=== PATIENT | female | born 1930 | race Caucasian/White ===

== ENCOUNTER 2017-10-31 11:34 | Day surgery (SDC) | payer MEDICARE, OTHER ==
[2017-10-31] MEDS ORDERED: Sodium Chloride 0.9% 10 ML Syringe IV ONE (11:35)
[2017-10-31] MEDS ORDERED: Dexamethasone 4 MG/ML SDV IV ONE (11:35)
[2017-10-31] MEDS ORDERED: Midazolam 1 MG/ML 2 ML SDV IV ONE (11:35)
[2017-10-31 11:53] VITALS: BP 135/58
[2017-10-31] MEDS ORDERED: Sodium Chloride 0.9% 10 ML Syringe FLUSH PRN (12:00)
[2017-10-31] MEDS ORDERED: Proparacaine 0.5% Ophth Soln 15 ML Bottle EYERT ONE (12:00)
[2017-10-31] MEDS ORDERED: Timolol Maleate 0.5% Ophth Soln 5 ML Bottle EYERT ONE (12:00)
[2017-10-31] MEDS ORDERED: Povidone-Iodine 5% Sterile Ophth Soln 30 ML Bottle EYERT ONE (12:00)
[2017-10-31] MEDS ORDERED: Acetaminophen 325 MG Tab PO PRN (12:00)
[2017-10-31] MEDS ORDERED: Phenylephrine 10% Ophth Soln 5 ML Bot EYERT ONE (12:00)
[2017-10-31] MEDS ORDERED: Phenylephrine 10% Ophth Soln 5 ML Bot EYERT PRN (12:00)
[2017-10-31] MEDS ORDERED: Cataract Ophth Solution EYERT ONE (12:00)
[2017-10-31] MEDS ORDERED: Moxifloxacin 0.5% Ophth Soln 3 ML Bottle EYERT ONE (12:00)
[2017-10-31] MEDS ORDERED: Ondansetron 4 MG/2 ML SDV IVPUSH PRN (12:00)
[2017-10-31] MEDS ORDERED: Tetracaine HCl/PF 0.5% 4 ML Bottle EYERT ONE (12:36)
[2017-10-31] MEDS ORDERED: Dexamethasone/Neomycin/Polymyxin B Ophth Oint 3.5 GM Tube EYERT ONE (12:37)
[2017-10-31] MEDS ORDERED: Lidocaine 1% 30 ML SDV ONE (12:37)
[2017-10-31] MEDS ORDERED: Apraclonidine 0.5% Ophth Soln 5 ML Bot EYERT ONE (12:37)
[2017-10-31] MEDS ORDERED: Chondroitin Sulfate/Hyaluronate Sodium Ophth Inj 0.5 ML Syringe IOCULAR ONE (12:38)
[2017-10-31] MEDS ORDERED: Vancomycin 500 MG SDV EYERT ONE (12:38)
[2017-10-31] MEDS ORDERED: Balanced Salt Solution Ophth Irrig 500 ML Bottle IOCULAR ONE (12:38)
[2017-10-31] MEDS ORDERED: Diclofenac Sodium 0.1% Ophth Soln 5 ML Bottle EYERT ONE (12:38)
--- NOTE | 2017-11-01 07:29 | OR ---
DATE: 10/31/2017 PREOPERATIVE DIAGNOSIS: Visually significant mixed cataract, right eye. POSTOPERATIVE DIAGNOSIS: Visually significnat mixed cataract, right eye. PROCEDURE: Extracapsular cataract extraction with intraocular lens implant, right eye. ANESTHESIA: Topical/local MAC. COMPLICATIONS: None. INDICATION: Mrs. Ruiz was seen in the clinic. She has difficulty with bright lights, difficulty with glare. She is unhappy with her vision. Clinical examination reveals visually significant mixed nuclear and cortical cataract. I explained options. I offered cataract surgery and I explained risks including the potential for vision loss. She is symptomatic and requested surgery to improve vision and function. We discussed implant options and she requested a monofocal implant. OPERATIVE DESCRIPTION: After informed consent was obtained and the risks, benefits, and alternatives were explained, the patient was brought to the operative suite and topical anesthesia was administered. The patient was then prepped and draped in the sterile fashion and attention was placed on the right eye. A sterile lid speculum was placed into the right eye to allow operative exposure. A full-thickness paracentesis was made in the temporal portion of the operative eye. Preservative-free lidocaine 0.1 mL was injected into the anterior chamber followed by viscoelastic. A full-thickness corneal incision was then made into the anterior chamber. A bent needle cystotome was used to create a small hari in the anterior capsule. The capsulorrhexis forceps were then used to create a 360-degree curvilinear capsulorrhexis. The nucleus was then removed using a phacoemulsification handpiece and the remaining cortical material was then removed with irrigation and aspiration handpiece. Following removal of the cortical material, the capsular bag was then inspected and noted to be free of any holes or tears. Viscoelastic was then injected into the capsular bag and the intraocular lens was inserted into the capsular bag. The viscoelastic material was then removed from both the anterior and posterior chambers and from behind the IOL. The lens and capsular bag were then reinspected. The IOL was well centered and the capsular bag intact. The wound and paracentesis sites were inspected and hydrated with balanced saline solution. Both were found to be self- sealing. The intraocular pressure was assessed digitally and found to be within normal range. A good red reflex was noted at the completion of the procedure. No complications occurred during the operation. At the completion of the procedure, Maxitrol, Voltaren, and Iopidine drops were placed into the operative eye. A sterile eye shield was placed over the operative eye and the patient was transported to the postoperative recovery area having tolerated the procedure well. Postoperative instructions were given along with a postoperative appointment. The patient was advised to call with any questions or concerns. [facility] /[id number]
== END 2017-10-31 14:10 | disposition home or self-care (01) ==
LOC: DL.SDS 11:34
PROVIDERS: ATTEND Ophthalmology
DX: H26.9 Unspecified cataract (principal); E78.5 Hyperlipidemia, unspecified; I10 Essential (primary) hypertension; M81.0 Age-related osteoporosis without current pathological fracture; I48.0 Paroxysmal atrial fibrillation; K44.9 Diaphragmatic hernia without obstruction or gangrene; K57.90 Diverticulosis of intestine, part unspecified, without perforation or abscess without bleeding; Z79.899 Other long term (current) drug therapy; Z79.82 Long term (current) use of aspirin
CPT/HCPCS: 00142; 66984; A9270; C1780; J1100; J2250; J3370; J7050

== ENCOUNTER 2017-12-01 15:06 | Emergency (ER) | payer MEDICARE, OTHER ==
[2017-12-01] MEDS: Amoxicillin/Clavulanate K 875-125 MG Tab PO ONE (18:38)
[2017-12-01] MEDS: Meclizine 12.5 MG Tab PO ONE (18:38)
[2017-12-01] MEDS: cloNIDine 0.1 MG Tab PO ONE (18:54)
[2017-12-01 19:37] VITALS: BP 170/43
--- NOTE | 2017-12-02 19:13 | EDM.PDOC ---
Scribed by America Murillo 12/01/17 [id number] for Radha Echols NP <Radha Echols - Last Filed: 12/01/17 18:48> ED HPI GENERAL MEDICAL PROBLEM - General Chief Complaint: General Stated Complaint: diziness Time Seen by Provider: 12/01/17 16:22 Source of Information: Reports: Patient, Family, RN, RN Notes Reviewed History Limitations: Reports: No Limitations - History of Present Illness INITIAL COMMENTS - FREE TEXT/NARRATIVE: Patient presents with being dizzy and weak since Sunday. Patient was to the clinic yesterday. She was started on a new med--Amlodipine.She has dizziness progressively getting worse. She had a headache yesterday. Her vision is blurry. She has had chills and urgency. She has had no fever, chest pain, shortness of breath, nausea, vomiting, diarrhea, constipation or burning with urination. Duration: Getting Worse Severity: Mild Improves with: Reports: None Worsens with: Reports: None Associated Symptoms: Reports: No Other Symptoms - Related Data Allergies Allergy/AdvReac Type Severity Reaction Status Date / Time No Known Allergies Allergy Verified 10/31/17 12:08 Home Meds: Home Meds Aspirin 81 mg PO DAILY 02/23/16 [History] amLODIPine Besylate [Amlodipine Besylate] 5 mg PO DAILY 10/26/17 [History] Past Medical History HEENT History: Reports: Cataract, Impaired Vision, Other (See Below) Other HEENT History: floaters Cardiovascular History: Reports: Afib, High Cholesterol, Hypertension Respiratory History: Reports: None Gastrointestinal History: Reports: Diverticulosis, Hiatal Hernia Genitourinary History: Reports: Urinary Incontinence, Other (See Below) Other Genitourinary History: 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 -- 75 MM (2 15/16IN) 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: Other (See Below) Other OB/BYN History: PELVIC RELAXATION DISORDER - WEARS PESSARY Musculoskeletal History: Reports: Osteoporosis Neurological History: Reports: None Psychiatric History: Reports: None Endocrine/Metabolic History: Reports: None Hematologic History: Reports: None Immunologic History: Reports: None Dermatologic History: Reports: None - Infectious Disease History Infectious Disease History: Reports: Hepatitis A - Past Surgical History Head Surgeries/Procedures: Reports: None HEENT Surgical History: Reports: Cataract Surgery Cardiovascular Surgical History: Reports: None Respiratory Surgical History: Reports: None GI Surgical History: Reports: Appendectomy Neurological Surgical History: Reports: None Musculoskeletal Surgical History: Reports: Other (See Below) Other Musculoskeletal Surgeries/Procedures:: left arm Fx Social & Family History - Family History Neurological: Reports: Alzheimers Disease - Tobacco Use Smoking Status *Q: Never Smoker Second Hand Smoke Exposure: No - Caffeine Use Caffeine Use: Reports: Coffee, Soda, Tea - Recreational Drug Use Recreational Drug Use: No ED ROS GENERAL - Review of Systems Review Of Systems: ROS reveals no pertinent complaints other than HPI. ED EXAM, GENERAL - Physical Exam Exam: See Below Exam Limited By: No Limitations General Appearance: Alert, WD/WN, No Apparent Distress Eye Exam: Bilateral Eye: Normal Inspection Ears: Normal External Exam, Normal Canal, Hearing Grossly Normal, Normal TMs Nose: Normal Inspection, Normal Mucosa, No Blood Throat/Mouth: Normal Inspection, Normal Lips, Normal Teeth, Normal Gums, Normal Oropharynx, Normal Voice, No Airway Compromise Head: Atraumatic, Normocephalic Neck: Normal Inspection, Supple, Non-Tender, Full Range of Motion Respiratory/Chest: No Respiratory Distress, Lungs Clear, Normal Breath Sounds, No Accessory Muscle Use, Chest Non-Tender Cardiovascular: Normal Peripheral Pulses, Regular Rate, Rhythm, No Edema, No Gallop, No JVD, No Murmur, No Rub GI/Abdominal: Normal Bowel Sounds, Soft, Non-Tender, No Organomegaly, No Distention, No Abnormal Bruit, No Mass (Female) Exam: Deferred Rectal (Female) Exam: Deferred Back Exam: Normal Inspection, Full Range of Motion, NT Extremities: Normal Inspection, Normal Range of Motion, Non-Tender, Normal Capillary Refill, No Pedal Edema Neurological: Other (dizzy with turning head and sitting up. ) Psychiatric: Normal Affect, Normal Mood Skin Exam: Warm, Dry, Intact, Normal Color, No Rash Lymphatic: No Adenopathy EKG INTERPRETATION EKG Date: 12/01/17 Time: 16:09 Rhythm: Other (sinus rhythm) Rate (Beats/Min): 76 [place]: Normal P-Wave: Present QRS: Normal ST-T: Normal QT: Normal EKG Interpretation Comments: LVH by voltage. Course - Vital Signs Last Recorded V/S: Last Vital Signs Temp 37.0 C 12/01/17 18:56 Pulse 66 12/01/17 19:37 Resp 16 12/01/17 18:56 BP 170/43 H 12/01/17 19:37 Pulse Ox 97 12/01/17 19:37 - Orders/Labs/Meds Orders: Active Orders 24 hr Category Date Time Status EKG Documentation Completion [RC] STAT Care 12/01/17 15:57 Active CULTURE BLOOD [BC] Stat Lab 12/01/17 16:16 Received CULTURE BLOOD [BC] Stat Lab 12/01/17 16:22 Received Blood Culture x2 Reflex Set [OM.PC] Stat Oth 12/01/17 15:57 Ordered Labs: Laboratory Tests 12/01/17 12/01/17 12/01/17 Range/Units 16:16 16:16 16:16 WBC 6.1 (5.0-10.0) 10^3/uL RBC 4.40 (4.2-5.4) 10^6/uL Hgb 13.5 (12.0-16.0) g/dL Hct 41.3 (37.0-47.0) % MCV 93.9 (80-100) fL MCH 30.7 (27.0-34.0) pg MCHC 32.7 L (33.0-35.0) g/dL Plt Count 195 (150-450) 10^3/uL Neut % (Auto) 46.3 (42.2-75.2) % Lymph % (Auto) 40.3 (20.5-50.1) % [place] % (Auto) 9.9 H (2-8) % Eos % (Auto) 3.0 (1.0-3.0) % Baso % (Auto) 0.5 (0.0-1.0) % Sodium 137 (135-145) mmol/L Potassium 4.0 (3.6-5.0) mmol/L Chloride 103 (101-111) mmol/L Carbon Dioxide 26.0 (21.0-31.0) mmol/L Anion Gap 12.0 BUN 17 (7-18) mg/dL Creatinine 0.9 (0.6-1.3) mg/dL Est Cr Clr Drug Dosing 35.49 mL/min Estimated GFR (MDRD) 59 BUN/Creatinine Ratio 18.88 Glucose 209 H (74-105) mg/dL Lactic Acid 1.7 (0.5-2.2) mmol/L Calcium 9.4 (8.4-10.2) mg/dl Total Bilirubin 0.6 (0.2-1.0) mg/dL AST 26 (10-42) IU/L ALT 16 (10-60) IU/L Alkaline Phosphatase 68 (42-121) IU/L Troponin I (0.00-0.02) ng/ml Total Protein 6.7 (6.7-8.2) g/dl Albumin 3.8 (3.2-5.5) g/dl Globulin 2.9 Albumin/Globulin Ratio 1.31 Urine Color (YELLOW) Urine Appearance (CLEAR) Urine pH (5.0-9.0) Ur Specific [place] (1.005-1.030) Urine Protein (NEGATIVE) Urine Glucose (UA) (NEGATIVE) Urine Ketones (NEGATIVE) Urine Occult Blood (NEGATIVE) Urine Nitrite (NEGATIVE) Urine Bilirubin (NEGATIVE) Urine Urobilinogen (0.2-1.0) mg/dL Ur Leukocyte Esterase (NEGATIVE) Urine RBC /HPF Urine WBC (0-5/HPF) /HPF Ur Epithelial Cells /HPF Urine Bacteria (0-FEW/HPF) /HPF 12/01/17 12/01/17 Range/Units 17:03 18:55 WBC (5.0-10.0) 10^3/uL RBC (4.2-5.4) 10^6/uL Hgb (12.0-16.0) g/dL Hct (37.0-47.0) % MCV (80-100) fL MCH (27.0-34.0) pg MCHC (33.0-35.0) g/dL Plt Count (150-450) 10^3/uL Neut % (Auto) (42.2-75.2) % Lymph % (Auto) (20.5-50.1) % [place] % (Auto) (2-8) % Eos % (Auto) (1.0-3.0) % Baso % (Auto) (0.0-1.0) % Sodium (135-145) mmol/L Potassium (3.6-5.0) mmol/L Chloride (101-111) mmol/L Carbon Dioxide (21.0-31.0) mmol/L Anion Gap BUN (7-18) mg/dL Creatinine (0.6-1.3) mg/dL Est Cr Clr Drug Dosing mL/min Estimated GFR (MDRD) BUN/Creatinine Ratio Glucose (74-105) mg/dL Lactic Acid (0.5-2.2) mmol/L Calcium (8.4-10.2) mg/dl Total Bilirubin (0.2-1.0) mg/dL AST (10-42) IU/L ALT (10-60) IU/L Alkaline Phosphatase (42-121) IU/L Troponin I < 0.02 (0.00-0.02) ng/ml Total Protein (6.7-8.2) g/dl Albumin (3.2-5.5) g/dl Globulin Albumin/Globulin Ratio Urine Color Yellow (YELLOW) Urine Appearance Slightly cloudy (CLEAR) Urine pH 6.0 (5.0-9.0) Ur Specific [place] 1.020 (1.005-1.030) Urine Protein 30 H (NEGATIVE) Urine Glucose (UA) Negative (NEGATIVE) Urine Ketones Trace H (NEGATIVE) Urine Occult Blood Trace-intact H (NEGATIVE) Urine Nitrite Negative (NEGATIVE) Urine Bilirubin Negative (NEGATIVE) Urine Urobilinogen 1.0 (0.2-1.0) mg/dL Ur Leukocyte Esterase Large H (NEGATIVE) Urine RBC 0-5 /HPF Urine WBC 40-50 H (0-5/HPF) /HPF Ur Epithelial Cells Moderate H /HPF Urine Bacteria Few (0-FEW/HPF) /HPF Meds: Medications Discontinued Medications Generic Name Dose Route Start Last Admin Trade Name Freq PRN Reason Stop Dose Admin Amoxicillin/Clavulanate Potassium 1 tab 12/01/17 18:35 12/01/17 18:38 Augmentin 875 Mg/125 Mg PO 12/01/17 18:36 1 tab ONETIME ONE Administration Clonidine HCl 0.1 mg 12/01/17 18:49 12/01/17 18:54 Catapres PO 12/01/17 18:50 0.1 mg ONETIME ONE Administration Meclizine HCl 12.5 mg 12/01/17 18:33 12/01/17 18:38 Antivert PO 12/01/17 18:34 12.5 mg ONETIME ONE Administration - Radiology Interpretation Free Text/Narrative:: CT head: 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 Mild cerebral and cerebellar atrophy. Cerebellar atrophy is more prominent than the cerebral atrophy. No sign of acute intracranial abnormality. See rad report. Departure - Departure Time of Disposition: 18:29 Disposition: Home, Self-Care 01 Condition: Fair Clinical Impression: UTI, Urinary tract infectious disease, Dizziness, Sinusitis - Discharge Information Instructions: Sinusitis, Adult, [id number], Urinary Tract Infection, Adult, [id number], Dizziness, [id number] Referrals: PCP,None [Primary Care Provider] - Forms: ED Department Discharge Additional Instructions: RX: Augmentin, Meclizine Drink plenty of fluids Follow up with your primary care facility next week <Bear Lennon - Last Filed: 12/01/17 19:46> Course - Re-Assessments/Exams Free Text/Narrative Re-Assessment/Exam: 12/01/17 19:44 results discussed with family & pt. BP much better and dizziness improved. Departure - Departure Time of Disposition: 19:45 I have read and agree with the documentation that has been completed regarding this visit. By signing this record, I attest that the documentation was completed in my physical presence and is an accurate record of the encounter.
--- NOTE | 2017-12-03 17:28 | EKG ---
12/01/2017 - MARTIN LEE - TIME: 1609 hours. FINDINGS: EKG shows sinus rhythm. [facility] /[id number]
== END 2017-12-01 19:51 | disposition home or self-care (01) ==
LOC: DL.ED 15:06
DX: N39.0 Urinary tract infection, site not specified (principal); R42 Dizziness and giddiness; J32.9 Chronic sinusitis, unspecified; I48.91 Unspecified atrial fibrillation; E78.00 Pure hypercholesterolemia, unspecified; I10 Essential (primary) hypertension; Z79.82 Long term (current) use of aspirin; Z79.899 Other long term (current) drug therapy
CPT/HCPCS: 36415; 70450; 80053; 81001; 83605; 84484; 85025; 87040; 87804; 93005; 93010; 99284; A9270; 87077; 87186; 99283

== ENCOUNTER 2017-12-02 04:50 | Inpatient (IN) | payer MEDICARE, OTHER ==
--- NOTE | 2017-12-02 05:20 | EDM.PDOC ---
ED HPI GENERAL MEDICAL PROBLEM - General Chief Complaint: Neuro Symptoms/Deficits Stated Complaint: AMBULANCE Time Seen by Provider: 12/02/17 05:15 Source of Information: Reports: Patient, Family History Limitations: Reports: No Limitations - History of Present Illness INITIAL COMMENTS - FREE TEXT/NARRATIVE: was seen earlier for dizziness & weakness since Sunday with Dx UTI & sinusitis. been to clinic and had BP Rx changed. tonight daughter states pt unable to stand and had to call EMS. pt alert coherent minimal slur speech. obvious left facial droop & left leg weakness. CAT earlier show cerebella atrophy. 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 - Related Data Allergies Allergy/AdvReac Type Severity Reaction Status Date / Time No Known Allergies Allergy Verified 12/02/17 05:03 Home Meds: Home Meds Aspirin 81 mg PO DAILY 02/23/16 [History] amLODIPine Besylate [Amlodipine Besylate] 5 mg PO DAILY 10/26/17 [History] Past Medical History HEENT History: Reports: Cataract, Impaired Vision, Other (See Below) Other HEENT History: floaters Cardiovascular History: Reports: Afib, High Cholesterol, Hypertension Respiratory History: Reports: None Gastrointestinal History: Reports: Diverticulosis, Hiatal Hernia Genitourinary History: Reports: Urinary Incontinence, Other (See Below) Other Genitourinary History: 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 -- 75 MM (2 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) 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: Reports: Other (See Below) Other OB/BYN History: PELVIC RELAXATION DISORDER - WEARS PESSARY Musculoskeletal History: Reports: Osteoporosis Neurological History: Reports: None Psychiatric History: Reports: None Endocrine/Metabolic History: Reports: None Hematologic History: Reports: None Immunologic History: Reports: None Dermatologic History: Reports: None - Infectious Disease History Infectious Disease History: Reports: Hepatitis A - Past Surgical History Head Surgeries/Procedures: Reports: None HEENT Surgical History: Reports: Cataract Surgery Cardiovascular Surgical History: Reports: None Respiratory Surgical History: Reports: None GI Surgical History: Reports: Appendectomy Neurological Surgical History: Reports: None Musculoskeletal Surgical History: Reports: Other (See Below) Other Musculoskeletal Surgeries/Procedures:: left arm Fx Social & Family History - Family History Neurological: Reports: Alzheimers Disease - Tobacco Use Smoking Status *Q: Never Smoker Second Hand Smoke Exposure: No - Recreational Drug Use Recreational Drug Use: No ED ROS GENERAL - Review of Systems Review Of Systems: ROS reveals no pertinent complaints other than HPI. ED EXAM, NEURO - Physical Exam Exam: See Below Exam Limited By: No Limitations General Appearance: Alert, WD/WN, No Apparent Distress Eye Exam: Bilateral Eye: PERRL (pupils ess ER @ 3mm) Ears: Hearing Grossly Normal Throat/Mouth: Normal Voice, No Airway Compromise Head Exam: Atraumatic Neck: Non-Tender, Full Range of Motion Respiratory/Chest: No Respiratory Distress Cardiovascular: Regular Rate, Rhythm GI/Abdominal: Soft, Non-Tender Neurological: Alert, Oriented x 3, Other (left leg unable to raise) Extremities: Other (left leg unable to raise) Psychiatric: Flat Affect Skin Exam: Warm, Dry, Normal Color Course - Vital Signs Last Recorded V/S: Last Vital Signs Temp 36.5 C 12/02/17 06:46 Pulse 53 L 12/02/17 06:46 Resp 13 12/02/17 06:46 BP 122/37 L 12/02/17 06:46 Pulse Ox 95 12/02/17 06:46 - Orders/Labs/Meds Orders: Active Orders 24 hr Category Date Time Status Head wo Cont [CT] Urgent Exams 12/02/17 05:07 Taken Labs: Laboratory Tests 12/02/17 12/02/17 12/02/17 Range/Units 05:30 05:30 05:30 WBC 6.8 (5.0-10.0) 10^3/uL RBC 4.34 (4.2-5.4) 10^6/uL Hgb 13.3 (12.0-16.0) g/dL Hct 40.8 (37.0-47.0) % MCV 94.0 (80-100) fL MCH 30.6 (27.0-34.0) pg MCHC 32.6 L (33.0-35.0) g/dL Plt Count 179 (150-450) 10^3/uL Neut % (Auto) 46.5 (42.2-75.2) % Lymph % (Auto) 38.7 (20.5-50.1) % [place] % (Auto) 10.6 H (2-8) % Eos % (Auto) 3.8 H (1.0-3.0) % Baso % (Auto) 0.4 (0.0-1.0) % PT 9.5 (9.0-12.0) SEC INR 0.9 (0.9-1.2) APTT 26.7 (22.0-34.0) SEC Sodium 137 (135-145) mmol/L Potassium 4.0 (3.6-5.0) mmol/L Chloride 103 (101-111) mmol/L Carbon Dioxide 26.0 (21.0-31.0) mmol/L Anion Gap 12.0 BUN 17 (7-18) mg/dL Creatinine 0.8 (0.6-1.3) mg/dL Est Cr Clr Drug Dosing 39.92 mL/min Estimated GFR (MDRD) > 60 BUN/Creatinine Ratio 21.25 Glucose 109 H (74-105) mg/dL Calcium 9.2 (8.4-10.2) mg/dl Total Bilirubin 0.7 (0.2-1.0) mg/dL AST 22 (10-42) IU/L ALT 15 (10-60) IU/L Alkaline Phosphatase 62 (42-121) IU/L Total Protein 6.5 L (6.7-8.2) g/dl Albumin 3.7 (3.2-5.5) g/dl Globulin 2.8 Albumin/Globulin Ratio 1.32 - Re-Assessments/Exams Free Text/Narrative Re-Assessment/Exam: 12/02/17 06:[address] Myers who will come to re-eval the pt and discussed with the family. finally decided to have pt admitted here. Departure - Departure Time of Disposition: 06:49 Disposition: Admitted As Inpatient 67 Condition: Fair Clinical Impression: Cerebrovascular accident (CVA) Qualifiers: CVA mechanism: unspecified Qualified Code(s): I63.9 - Cerebral infarction, unspecified - Discharge Information Forms: ED Department Discharge - My Orders Last 24 Hours: My Active Orders 12/02/17 05:07 Head wo Cont [CT] Urgent - Assessment/Plan Last 24 Hours: My Active Orders 12/02/17 05:07 Head wo Cont [CT] Urgent
[2017-12-02 05:58] LABS: CHLORIDE,CL 103 mmol/L (101-111); SODIUM,NA 137 mmol/L (135-145)
[2017-12-02] MEDS ORDERED: Ondansetron 4 MG/2 ML SDV IVPUSH PRN (07:30)
[2017-12-02] MEDS: Sodium Chloride 0.9% 1,000 ML IV SCH ×2 (08:35→21:59)
[2017-12-02] MEDS: Enoxaparin 40 MG/0.4 ML Syringe SUBCUT SCH (08:43)
[2017-12-02] MEDS ORDERED: Clopidogrel 75 MG Tab PO SCH (09:00)
[2017-12-02] MEDS ORDERED: cefTRIAXone 1 GM in Sodium Chloride 0.9% 50 ML IV SCH (09:00)
--- NOTE | 2017-12-02 09:06 | PCM.HP ---
H&P History of Present Illness - General Date of Service: 12/02/17 Admit Problem/Dx: Admission Diagnosis/Problem Admission Diagnosis/Problem CVA, Cerebrovascular accident Source of Information: Family History Limitations: Reports: Altered Mental Status - History of Present Illness Initial Comments - Free Text/Narative: the patient was brought to the emergency room by family because of drowsiness and weakness of the left extremities. Apparently symptoms started about 2 PM yesterday and the patient was seen in the emergency room. She complained of difficulty lifting her left extremities. At also has some speech difficulty. The patient was evaluated emergency room and sent home. Came back this morning because of persistent weakness and drowsiness. CT scan of the head was negative. Patient has obvious left hemiparesis and likely has cerebrovascular accident Onset of Symptoms: Reports: Unknown/Unsure Symptom Onset Date: 12/01/17 Location: Reports: Lower Extremity, Left Severity: Moderate Associated Symptoms: Reports: Weakness - Related Data Allergies/Adverse Reactions: Allergies Allergy/AdvReac Type Severity Reaction Status Date / Time No Known Allergies Allergy Verified 12/02/17 07:43 Home Medications: Home Meds Aspirin 81 mg PO DAILY 02/23/16 [History] amLODIPine Besylate [Amlodipine Besylate] 5 mg PO DAILY 10/26/17 [History] Past Medical History HEENT History: Reports: Cataract, Impaired Vision, Other (See Below) Other HEENT History: floaters Cardiovascular History: Reports: Afib, High Cholesterol, Hypertension Respiratory History: Reports: None Gastrointestinal History: Reports: Diverticulosis, Hiatal Hernia Genitourinary History: Reports: Urinary Incontinence, Other (See Below) Other Genitourinary History: 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 -- 75 MM (2 15/16IN) 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: Reports: Other (See Below) Other OB/BYN History: PELVIC RELAXATION DISORDER - WEARS PESSARY Musculoskeletal History: Reports: Osteoporosis Neurological History: Reports: None Psychiatric History: Reports: None Endocrine/Metabolic History: Reports: None Hematologic History: Reports: None Immunologic History: Reports: None Oncologic (Cancer) History: Reports: None Dermatologic History: Reports: None - Infectious Disease History Infectious Disease History: Reports: Mumps - Past Surgical History Head Surgeries/Procedures: Reports: None HEENT Surgical History: Reports: Cataract Surgery Cardiovascular Surgical History: Reports: None Respiratory Surgical History: Reports: None GI Surgical History: Reports: Appendectomy Other Female Surgeries/Procedures: Family states that she does not wear bladder protection at home Neurological Surgical History: Reports: None Musculoskeletal Surgical History: Reports: Other (See Below) Other Musculoskeletal Surgeries/Procedures:: left arm Fx Social & Family History - Family History Family Medical History: Noncontributory Neurological: Reports: Alzheimers Disease - Tobacco Use Smoking Status *Q: Former Smoker Years of Tobacco use: 40 Packs/Tins Daily: 0.5 Used Tobacco, but Quit: Yes Month/Year Tobacco Last Used: February Second Hand Smoke Exposure: No - Caffeine Use Caffeine Use: Reports: Coffee, Soda, Tea - Recreational Drug Use Recreational Drug Use: No H&P Review of Systems - Review of Systems: Review Of Systems: Unable To Obtain Exam - Exam Exam: See Below - Vital Signs Vital Signs: Last Vital Signs Temp 36.5 C 12/02/17 06:46 Pulse 53 L 12/02/17 06:46 Resp 13 12/02/17 06:46 BP 122/37 L 12/02/17 06:46 Pulse Ox 100 12/02/17 07:30 Weight: 61.87 kg - Exam General: Sedated, Lethargic HEENT: Conjunctiva Clear, Pupils Reactive Neck: Supple Lungs: Clear to Auscultation Cardiovascular: Regular Rate, Regular Rhythm GI/Abdominal Exam: Soft, Non-Tender Neurological: Other (Left hemiparesis ) - Patient Data Result Diagrams: 12/02/17 05:30 12/02/17 05:30 *Q Meaningful Use (ADM) - VTE *Q VTE Criteria *Q: - Stroke *Q Stroke Criteria *Q: - AMI *Q AMI Criteria *Q: Problem List Initiated/Reviewed/Updated: Yes Orders Last 24hrs: Active Orders 24 hr Category Date Time Status Patient Status [ADT] Routine ADT 12/02/17 07:30 Active Cardiac Monitoring [RC] CONTINUOUS Care 12/02/17 07:33 Active Oxygen Therapy [RC] PRN Care 12/02/17 07:30 Active Up With Assistance [RC] ASDIRECTED Care 12/02/17 07:30 Active VTE/DVT Education [RC] PER UNIT ROUTINE Care 12/02/17 07:30 Active Vital Signs [RC] Q4H Care 12/02/17 07:30 Active Consult to Phone Triage Specialist [CONS] Routine Cons 12/02/17 07:30 Active OT Evaluation and Treatment [CONS] Routine Cons 12/02/17 07:30 Active PT Evaluation and Treatment [CONS] Routine Cons 12/02/17 07:30 Active FORGING PRESS LEVER 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 Evaluation and Treatment [CONS] Routine Cons 12/02/17 07:30 Active Nothing per Oral Now Diet [DIET] Diet 12/02/17 Breakfast Active Brain w wo Cont [MR] Routine Exams 12/03/17 07:30 Ordered Carotid Comp [US] Routine Exams 12/03/17 07:30 Ordered Clopidogrel [Plavix] Med 12/02/17 09:00 Active 75 mg PO DAILY Enoxaparin [Lovenox] Med 12/02/17 09:00 Active 40 mg SUBCUT DAILY Ondansetron [Zofran] Med 12/02/17 07:30 Active 4 mg IVPUSH Q6H PRN Sodium Chloride 0.9% [Normal Saline] 1,000 ml Med 12/02/17 07:30 Active IV ASDIRECTED Resuscitation Status Routine Resus Stat 12/02/17 07:30 Ordered Medication Orders Clopidogrel Bisulfate (Plavix) 75 mg PO DAILY [facility] Enoxaparin Sodium (Lovenox) 40 mg SUBCUT DAILY [facility] Last Admin: 12/02/17 08:43 Dose: 40 mg Sodium Chloride (Normal Saline) 1,000 mls @ 75 mls/hr IV ASDIRECTED [facility] Last Admin: 12/02/17 08:35 Dose: 75 mls/hr Ondansetron HCl (Zofran) 4 mg IVPUSH Q6H PRN PRN Reason: Nausea/Vomiting Assessment/Plan Comment:: #. Probable cerebrovascular accident The patient presented with left hemiparesis and drowsiness Exact time of onset is not obvious but might have been about 2 PM yesterday. The patient is obviously outside the window for intravenous thrombolytics. #. Hypertension The patient does a history of chronic hypertension Blood pressure is mostly within acceptable limits. #. Acute encephalopathy patient is drowsy Likely due to acute cerebrovascular accident. CT scan of the head is negative. Plan: Admit patient to medical floor Obtain MRI of the brain Obtain ultrasound carotids Neuro check consult physical therapy Consult occupational therapy consult speech therapy Performed speech evaluation start patient on Plavix 7 family grams daily Start aspirin suppository 300 mg daily Patient will benefit from statins Discussed at length with family members. They're indicated the patient is DNR
[2017-12-02] MEDS: cefTRIAXone 1 GM Vial IV SCH (10:09)
[2017-12-02] MEDS: Aspirin 300 MG Supp RECTAL SCH (10:14)
[2017-12-02] MEDS ORDERED: Acetaminophen 325 MG Tab PO PRN (21:38)
--- NOTE | 2017-12-03 08:48 | MR ---
Clinical history: 87-year-old hospitalized patient with left-sided weakness (hypertension, dyslipidem ia, paroxysmal atrial fibrillation). Scan technique: Unenhanced sagittal T1 and multisequence axial and (T1, T2, FLAIR and diffusion-weigh anthony) MR images of the head and brain obtained while the patient was lying supine on the Jin 1.[employer] [place], [place]. All data archived in the PACS s [facility] for storage, reformatting and study. Interpretation: Abnormal. 1 *Asymmetric large area of ischemia (infarct) involving thalamus, on the right. 2. No sign of acute intracerebral/intraventricular or subarachnoid bleed. 3. Multiple microvascular ischemic changes identified throughout the periventricular white matter bot h hemispheres (accompanying mild age-appropriate atrophy). 4. No abnormal extracerebral/intracranial epidural or subdural hematoma. 5. Mild inflammatory changes of the ethmoid sinuses. Mastoid and other paranasal sinuses clear. Infla med right nasal turbinate. 6. Cerebellum and brainstem unremarkable.
--- NOTE | 2017-12-03 10:03 | PCM.PN ---
- General Info Date of Service: 12/03/17 Admission Dx/Problem (Free Text): Admission Diagnosis/Problem Admission Diagnosis/Problem CVA, Cerebrovascular accident Subjective Update: Patient has no new complaints today Still has weakness of the left extremities. Still has some difficulty with speech. Has left facial droop - Review of Systems General: Reports: Weakness, Malaise Cardiovascular: Reports: No Symptoms Gastrointestinal: Reports: No Symptoms Musculoskeletal: Reports: No Symptoms - Patient Data Vitals - Most Recent: Last Vital Signs Temp 36.7 C 12/03/17 07:42 Pulse 95 12/03/17 07:42 Resp 20 12/03/17 07:42 BP 150/60 H 12/03/17 07:42 Pulse Ox 96 12/03/17 07:42 Weight - Most Recent: 61.87 kg I&O - Last 24 Hours: Intake & Output 12/02/17 12/03/17 12/03/17 22:59 06:59 14:59 Intake Total 275 Output Total 200 425 Balance 75 -425 Med Orders - Current: Current Medications Acetaminophen (Tylenol) 650 mg PO Q4H PRN PRN Reason: Pain Last Admin: 12/02/17 21:56 Dose: 650 mg Aspirin (Aspirin) 300 mg RECTAL DAILY [facility] Last Admin: 12/02/17 10:14 Dose: 300 mg Ceftriaxone Sodium (Rocephin) 1 gm IV DAILY [facility] Last Admin: 12/02/17 10:09 Dose: 1 gm Clopidogrel Bisulfate (Plavix) 75 mg PO DAILY [facility] Last Admin: 12/02/17 09:51 Dose: Not Given Enoxaparin Sodium (Lovenox) 40 mg SUBCUT DAILY [facility] Last Admin: 12/02/17 08:43 Dose: 40 mg Sodium Chloride (Normal Saline) 1,000 mls @ 75 mls/hr IV ASDIRECTED [facility] Last Admin: 12/02/17 21:59 Dose: 75 mls/hr Ondansetron HCl (Zofran) 4 mg IVPUSH Q6H PRN PRN Reason: Nausea/Vomiting Discontinued Medications Ceftriaxone Sodium 1 gm/ (Sodium Chloride) 50 mls @ 100 mls/hr IV Q24H [facility] Last Admin: 12/02/17 11:04 Dose: Not Given - Exam General: Alert, Oriented Neck: Supple Cardiovascular: Regular Rate GI/Abdominal Exam: Non-Tender, No Organomegaly Neurological: Other (Left hemiparesis. Left facial droop) - Problem List Review Problem List Initiated/Reviewed/Updated: Yes - My Orders Last 24 Hours: My Active Orders 12/02/17 10:00 cefTRIAXone [Rocephin] 1 gm IV DAILY 12/02/17 21:38 Acetaminophen [Tylenol] 650 mg PO Q4H PRN 12/03/17 07:30 Carotid Comp [US] Routine 12/03/17 09:34 OT Evaluation and Treatment [CONS] Routine - Plan Plan:: #. Acute cerebrovascular accident The patient presented with left hemiparesis and drowsiness MRI of the brain obtained and it showed evidence of a large right thalamic stroke Patient was clearly outside the window for intravenous thrombolytics #. Hypertension The patient does a history of chronic hypertension Blood pressure is mostly within acceptable limits. #. Acute encephalopathy Patient was drowsy at presentation Likely due to acute cerebrovascular accident. #. 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 Questions answered They're indicated the patient is DNR
[2017-12-03] MEDS: Enoxaparin 40 MG/0.4 ML Syringe SUBCUT SCH (10:18)
[2017-12-03] MEDS: Aspirin 300 MG Supp RECTAL SCH (10:19)
[2017-12-03] MEDS: cefTRIAXone 1 GM Vial IV SCH (10:19)
--- NOTE | 2017-12-03 10:56 | US ---
CLINICAL HISTORY: 87-year-old female with left extremity weakness, "large thalamic infarct on the rig ht, speech difficulty and history of previous cardiovascular surgery. INTERPRETATION: Scattered atheromatous plaque right common carotid artery bulb and at the origin of b oth internal carotid arteries (intimal "thickening" on the left). No hemodynamically significant or surgical stenosis documented by abnormal flow velocities in either common or internal carotid artery. Normal antegrade vertebral artery flow present bilaterally. Peak systolic flow velocity right common carotid artery 65 cm/sec; right internal carotid artery 80 c m/sec; and right external carotid artery 140 cm/sec. IC/CC ratio on the right 1.25. Peak systolic flow velocity left common carotid artery 97 cm/sec; left internal carotid artery 136 cm /sec (mild-moderate stenosis); and left external carotid artery 134 cm/sec. IC/CC ratio on the left 1 .41. 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 Normal vertebral arteries.
[2017-12-03] MEDS: Clopidogrel 75 MG Tab PO SCH (12:13)
[2017-12-03] MEDS: Sodium Chloride 0.9% 1,000 ML IV SCH (14:36)
[2017-12-04] MEDS: Clopidogrel 75 MG Tab PO SCH (09:57)
[2017-12-04] MEDS: Enoxaparin 40 MG/0.4 ML Syringe SUBCUT SCH (09:57)
[2017-12-04] MEDS: Aspirin 81 MG Tab.Chew PO SCH (09:57)
[2017-12-04] MEDS: cefTRIAXone 1 GM Vial IV SCH (09:58)
[2017-12-04] MEDS ORDERED: Lactulose Soln 10 GM/15 ML 30 ML UD Cup PO PRN (10:59)
--- NOTE | 2017-12-04 11:05 | PCM.PN ---
- General Info Date of Service: 12/04/17 Admission Dx/Problem (Free Text): Admission Diagnosis/Problem Admission Diagnosis/Problem CVA, Cerebrovascular accident Subjective Update: Patient is doing well. Still has expressive difficulty Also has left hemiparesis. Has not had bowel movement for 3 days. - Review of Systems General: Reports: Weakness Cardiovascular: Reports: No Symptoms Gastrointestinal: Reports: Constipation Genitourinary: Reports: No Symptoms - Patient Data Vitals - Most Recent: Last Vital Signs Temp 36.7 C 12/04/17 00:00 Pulse 75 12/04/17 00:00 Resp 18 12/04/17 00:00 BP 180/80 H 12/04/17 00:00 Pulse Ox 98 12/04/17 00:00 Weight - Most Recent: 61.87 kg I&O - Last 24 Hours: Intake & Output 12/03/17 12/04/17 12/04/17 22:59 06:59 14:59 Intake Total 120 Output Total 950 Balance -830 Med Orders - Current: Current Medications Acetaminophen (Tylenol) 650 mg PO Q4H PRN PRN Reason: Pain Last Admin: 12/02/17 21:56 Dose: 650 mg Amlodipine Besylate (Norvasc) 5 mg PO DAILY [facility] Aspirin (Aspirin) 81 mg PO WITHBREAKFAST [facility] Last Admin: 12/04/17 09:57 Dose: Not Given Atorvastatin Calcium (Lipitor) 20 mg PO BEDTIME [facility] Cephalexin (Keflex) 250 mg PO Q6HR [facility] Clopidogrel Bisulfate (Plavix) 75 mg PO DAILY [facility] Last Admin: 12/04/17 09:57 Dose: Not Given Enoxaparin Sodium (Lovenox) 40 mg SUBCUT DAILY [facility] Last Admin: 12/04/17 09:57 Dose: Not Given Lactulose (Cephulac) 20 gm PO BID PRN PRN Reason: constipation Ondansetron HCl (Zofran) 4 mg IVPUSH Q6H PRN PRN Reason: Nausea/Vomiting Senna/Docusate Sodium (Senna Plus) 1 tab PO BID [facility] Discontinued Medications Aspirin (Aspirin) 300 mg RECTAL DAILY [facility] Last Admin: 12/03/17 10:19 Dose: 300 mg Ceftriaxone Sodium (Rocephin) 1 gm IV DAILY [facility] Last Admin: 12/04/17 09:58 Dose: Not Given Clopidogrel Bisulfate (Plavix) 75 mg PO DAILY [facility] Last Admin: 12/02/17 09:51 Dose: Not Given Sodium Chloride (Normal Saline) 1,000 mls @ 75 mls/hr IV ASDIRECTED [facility] Last Admin: 12/03/17 14:36 Dose: 75 mls/hr Ceftriaxone Sodium 1 gm/ (Sodium Chloride) 50 mls @ 100 mls/hr IV Q24H [facility] Last Admin: 12/02/17 11:04 Dose: Not Given - Exam General: Alert, Oriented Lungs: Clear to Auscultation Cardiovascular: Regular Rate, Regular Rhythm GI/Abdominal Exam: Soft, Non-Tender Extremities: Normal Inspection Neurological: Other (Left hemiparesis) - Problem List Review Problem List Initiated/Reviewed/Updated: Yes - My Orders Last 24 Hours: My Active Orders 12/03/17 11:37 Clopidogrel [Plavix] 75 mg PO DAILY 12/03/17 11:39 Communication Order [RC] DAILY 12/03/17 15:00 Echo Comp wo Cont [US] Routine 12/03/17 Lunch Mechanical Soft Diet [DIET] 12/04/17 08:00 Aspirin 81 mg PO WITHBREAKFAST 12/04/17 10:59 Lactulose [Cephulac] 20 gm PO BID PRN 12/04/17 11:00 Docusate Sodium/Sennosides [Senna Plus] 1 tab PO BID amLODIPine [Norvasc] 5 mg PO DAILY 12/04/17 12:00 Cephalexin [Keflex] 250 mg PO Q6HR 12/04/17 21:00 atorvaSTATin [Lipitor] 20 mg PO BEDTIME - Plan Plan:: #. Acute cerebrovascular accident The patient presented with left hemiparesis and drowsiness MRI of the brain obtained and it showed evidence of a large right thalamic stroke Patient was clearly outside the window for intravenous thrombolytics #. Hypertension The patient does a history of chronic hypertension Blood pressure is mostly within acceptable limits. #. Acute encephalopathy Patient was drowsy at presentation Likely due to acute cerebrovascular accident. Improving #. Probable urinary tract infection Urine culture grew staph epididymis Plan: blood pressure is poorly controlled start patient on amlodipine Start patient on Kefl Discontinue ceftriaxon Start patient on Lipitor 20 mg daily Start bowel regimen Discontinue telemetry Discontinue intravenous fluid
[2017-12-04] MEDS: amLODIPine 5 MG Tab PO SCH (12:20)
[2017-12-04] MEDS: Cephalexin 250 MG Cap PO SCH ×3 (12:21→23:23)
[2017-12-04] MEDS ORDERED: cefTRIAXone 1 GM Vial IV ONE (15:05)
[2017-12-04] MEDS ORDERED: Aspirin 81 MG Tab.Chew PO ONE (15:05)
[2017-12-04] MEDS ORDERED: Sodium Chloride 0.9% 1,000 ML IV ONE (15:05)
[2017-12-04] MEDS ORDERED: Enoxaparin 40 MG/0.4 ML Syringe SUBCUT ONE (15:05)
[2017-12-04] MEDS ORDERED: Clopidogrel 75 MG Tab PO ONE (15:05)
[2017-12-04] MEDS ORDERED: atorvaSTATin 20 MG Tab PO SCH (21:00)
[2017-12-05] MEDS: Cephalexin 250 MG Cap PO SCH ×2 (05:32→13:19)
[2017-12-05] MEDS: Enoxaparin 40 MG/0.4 ML Syringe SUBCUT SCH (08:14)
[2017-12-05] MEDS: Aspirin 81 MG Tab.Chew PO SCH (08:14)
[2017-12-05] MEDS: Clopidogrel 75 MG Tab PO SCH (08:14)
[2017-12-05] MEDS: amLODIPine 5 MG Tab PO SCH (08:15)
[2017-12-05 11:14] VITALS: BP 151/54
--- NOTE | 2017-12-05 11:34 | PCM.DCSUM1 ---
Discharge Summary - Hospital Course Free Text/Narrative:: The patient presented to the emergency room with complaint of weakness of the left extremities. She also was having some expressive difficulty. She was evaluated with CT scan which was unremarkable. Clinically the patient appeared to have had a stroke and was admitted to the hospital. I proceeded to obtain MRI of the brain and it confirmed an acute stroke involving the right thalamus. Patient was overloaded by speech, physical therapy, occupational therapy and underwent swallowing evaluation. She has been started on dysphagia diet and is doing much better. There was concern for urinary tract infection and she was started on intravenous antibiotics. However, her cultures came back Staphylococcus epididymis which is probably a contaminant. Patient still needs inpatient physical and occupational therapy will be transferred to the swing bed. #. Acute cerebrovascular accident The patient presented with left hemiparesis and drowsiness MRI of the brain obtained and it showed evidence of a large right thalamic stroke Patient was clearly outside the window for intravenous thrombolytics #. Hypertension The patient does a history of chronic hypertension Blood pressure is mostly within acceptable limits. #. Acute encephalopathy Patient was drowsy at presentation Likely due to acute cerebrovascular accident. Improving #. 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 to Electrical Accessories Ii Assembler [CONS] Routine OT Evaluation and Treatment [CONS] Routine PT Evaluation and Treatment [CONS] Routine - Discharge Plan Home Medications: Home Meds amLODIPine Besylate [Amlodipine Besylate] 5 mg PO DAILY 10/26/17 [History] Acetaminophen [Tylenol] 650 mg PO Q4H PRN tablet 12/05/17 [Rx] Clopidogrel [Plavix] 75 mg PO DAILY #0 tablet 12/05/17 [Rx] Enoxaparin [Lovenox] 40 mg SUBCUT DAILY syringe 12/05/17 [Rx] Lactulose [Cephulac] 20 gm PO BID PRN cup 12/05/17 [Rx] Referrals: PCP,Unobtain [Primary Care Provider] - - Review of Systems General: Reports: Weakness Pulmonary: Reports: No Symptoms Cardiovascular: Reports: No Symptoms Gastrointestinal: Reports: No Symptoms Genitourinary: Reports: No Symptoms Psychiatric: Reports: No Symptoms - Patient Data Vitals - Most Recent: Last Vital Signs Temp 37.1 C 12/05/17 11:13 Pulse 71 12/05/17 11:13 Resp 20 12/05/17 11:13 BP 151/54 H 12/05/17 11:13 Pulse Ox 99 12/05/17 11:13 Weight - Most Recent: 61.87 kg I&O - Last 24 hours: Intake & Output 12/04/17 12/05/17 12/05/17 22:59 06:59 14:59 Intake Total 555 100 220 Output Total 800 450 250 Balance -245 -350 -30 Med Orders - Current: Current Medications Acetaminophen (Tylenol) 650 mg PO Q4H PRN PRN Reason: Pain Last Admin: 12/02/17 21:56 Dose: 650 mg Amlodipine Besylate (Norvasc) 5 mg PO DAILY [facility] Last Admin: 12/05/17 08:15 Dose: 5 mg Aspirin (Aspirin) 81 mg PO WITHBREAKFAST [facility] Last Admin: 12/05/17 08:14 Dose: 81 mg Atorvastatin Calcium (Lipitor) 20 mg PO BEDTIME [facility] Last Admin: 12/04/17 20:30 Dose: 20 mg Cephalexin (Keflex) 250 mg PO Q6HR [facility] Last Admin: 12/05/17 05:32 Dose: 250 mg Clopidogrel Bisulfate (Plavix) 75 mg PO DAILY [facility] Last Admin: 12/05/17 08:14 Dose: 75 mg Enoxaparin Sodium (Lovenox) 40 mg SUBCUT DAILY [facility] Last Admin: 12/05/17 08:14 Dose: 40 mg Lactulose (Cephulac) 20 gm PO BID PRN PRN Reason: constipation Last Admin: 12/05/17 08:14 Dose: 20 gm Ondansetron HCl (Zofran) 4 mg IVPUSH Q6H PRN PRN Reason: Nausea/Vomiting Senna/Docusate Sodium (Senna Plus) 1 tab PO BID [facility] Last Admin: 12/05/17 08:14 Dose: 1 tab Discontinued Medications Aspirin (Aspirin) 300 mg RECTAL DAILY [facility] Last Admin: 12/03/17 10:19 Dose: 300 mg Ceftriaxone Sodium (Rocephin) 1 gm IV DAILY [facility] Last Admin: 12/04/17 09:58 Dose: Not Given Clopidogrel Bisulfate (Plavix) 75 mg PO DAILY [facility] Last Admin: 12/02/17 09:51 Dose: Not Given Sodium Chloride (Normal Saline) 1,000 mls @ 75 mls/hr IV ASDIRECTED [facility] Last Admin: 12/03/17 14:36 Dose: 75 mls/hr Ceftriaxone Sodium 1 gm/ (Sodium Chloride) 50 mls @ 100 mls/hr IV Q24H [facility] Last Admin: 12/02/17 11:04 Dose: Not Given - Exam General: Reports: Alert HEENT: Reports: Pupils Equal, Pupils Reactive Lungs: Reports: Clear to Auscultation Cardiovascular: Reports: Regular Rate, Regular Rhythm Skin: Reports: Warm
== END 2017-12-05 15:06 | disposition swing bed (61) | DRG 64 ==
LOC: DL.ED 04:50 → DL.MS 07:13 → UNDOADMIN 07:13 → DL.MS 07:30
PROVIDERS: ADMIT Hospitalist; ATTEND Hospitalist
DX: I63.9 Cerebral infarction, unspecified (principal); G93.49 Other encephalopathy; G81.94 Hemiplegia, unspecified affecting left nondominant side; R29.810 Facial weakness; R47.81 Slurred speech; R13.10 Dysphagia, unspecified; R42 Dizziness and giddiness; R11.2 Nausea with vomiting, unspecified; I10 Essential (primary) hypertension; I48.91 Unspecified atrial fibrillation; E78.00 Pure hypercholesterolemia, unspecified; H54.7 Unspecified visual loss; N81.89 Other female genital prolapse; Z87.891 Personal history of nicotine dependence; Z66 Do not resuscitate; R32 Unspecified urinary incontinence; Z79.82 Long term (current) use of aspirin; Z79.899 Other long term (current) drug therapy
CPT/HCPCS: 36415; 70450; 70551; 80053; 85025; 85610; 85730; 92610-GN; 93306; 93880; 97110-GO; 97116-GP; 97162-GP; 97166-GO; 99284; 99285; A9270-GY; J0696; J1650; J7030

== ENCOUNTER 2017-12-05 11:33 | Inpatient (IN) | payer MEDICARE, OTHER ==
[2017-12-05] MEDS ORDERED: Ondansetron 4 MG Tab.DIS PO PRN (14:35)
[2017-12-05] MEDS ORDERED: Acetaminophen 325 MG Tab PO PRN (14:35)
--- NOTE | 2017-12-05 14:44 | PCM.HP ---
H&P History of Present Illness - General Date of Service: 12/05/17 Admit Problem/Dx: Admission Diagnosis/Problem Admission Diagnosis/Problem CVA, Cerebrovascular accident Source of Information: Patient History Limitations: Reports: No Limitations - Related Data Allergies/Adverse Reactions: Allergies Allergy/AdvReac Type Severity Reaction Status Date / Time No Known Allergies Allergy Verified 12/02/17 07:43 Home Medications: Home Meds amLODIPine Besylate [Amlodipine Besylate] 5 mg PO DAILY 10/26/17 [History] Acetaminophen [Tylenol] 650 mg PO Q4H PRN tablet 12/05/17 [Rx] Clopidogrel [Plavix] 75 mg PO DAILY #0 tablet 12/05/17 [Rx] Enoxaparin [Lovenox] 40 mg SUBCUT DAILY syringe 12/05/17 [Rx] Lactulose [Cephulac] 20 gm PO BID PRN cup 12/05/17 [Rx] Past Medical History HEENT History: Reports: Cataract, Impaired Vision, Other (See Below) Other HEENT History: floaters Cardiovascular History: Reports: Afib, High Cholesterol, Hypertension Respiratory History: Reports: None Gastrointestinal History: Reports: Diverticulosis, Hiatal Hernia Genitourinary History: Reports: Urinary Incontinence, Other (See Below) Other Genitourinary History: 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 -- 75 MM (2 15/16IN) 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 (See Below) Other OB/BYN History: PELVIC RELAXATION DISORDER - WEARS PESSARY Musculoskeletal History: Reports: Osteoporosis Neurological History: Reports: None Psychiatric History: Reports: None Endocrine/Metabolic History: Reports: None Hematologic History: Reports: None Immunologic History: Reports: None Oncologic (Cancer) History: Reports: None Dermatologic History: Reports: None - Infectious Disease History Infectious Disease History: Reports: Mumps - Past Surgical History Head Surgeries/Procedures: Reports: None HEENT Surgical History: Reports: Cataract Surgery Cardiovascular Surgical History: Reports: None Respiratory Surgical History: Reports: None GI Surgical History: Reports: Appendectomy Neurological Surgical History: Reports: None Musculoskeletal Surgical History: Reports: Other (See Below) Other Musculoskeletal Surgeries/Procedures:: left arm Fx Social & Family History - Family History Family Medical History: Noncontributory Neurological: Reports: Alzheimers Disease - Tobacco Use Smoking Status *Q: Former Smoker Years of Tobacco use: 40 Packs/Tins Daily: 0.5 Used Tobacco, but Quit: Yes Month/Year Tobacco Last Used: February Second Hand Smoke Exposure: No - Caffeine Use Caffeine Use: Reports: Coffee, Soda, Tea - Recreational Drug Use Recreational Drug Use: No H&P Review of Systems - Review of Systems: Review Of Systems: See Below General: Reports: No Symptoms HEENT: Reports: No Symptoms Pulmonary: Reports: No Symptoms Cardiovascular: Reports: No Symptoms Genitourinary: Reports: No Symptoms Skin: Reports: No Symptoms Neurological: Reports: Numbness, Weakness Hematologic/Lymphatic: Reports: No Symptoms Exam - Exam Exam: See Below - Exam General: Alert, Oriented, 4 Neck: Supple, Trachea Midline, 2 Lungs: Clear to Auscultation, Normal Respiratory Effort Cardiovascular: Regular Rate, Regular Rhythm GI/Abdominal Exam: Normal Bowel Sounds, Soft, Non-Tender, No Organomegaly, No Distention, No Abnormal Bruit, No Mass, Pelvis Stable Neuro Extensive - Mental Status: Other (Left hemiparesis. Some expressive difficulty) Psychiatric: Alert, Normal Affect Problem List Initiated/Reviewed/Updated: Yes Orders Last 24hrs: Active Orders 24 hr Category Date Time Status Patient Status [ADT] Routine ADT 12/05/17 14:35 Ordered Height and Weight [RC] PER UNIT ROUTINE Care 12/05/17 14:37 Ordered Intake and Output [RC] QSHIFT Care 12/05/17 14:37 Ordered Oxygen Therapy [RC] PRN Care 12/05/17 14:35 Ordered Up ad Vyonne [RC] ASDIRECTED Care 12/05/17 14:35 Ordered VTE/DVT Education [RC] PER UNIT ROUTINE Care 12/05/17 14:35 Ordered Vital Signs [RC] PER UNIT ROUTINE Care 12/05/17 14:35 Ordered OT Evaluation and Treatment [CONS] Routine Cons 12/05/17 14:35 Ordered PT Evaluation and Treatment [CONS] Routine Cons 12/05/17 14:35 Ordered Mechanical Soft Diet [DIET] Diet 12/05/17 Lunch Ordered Acetaminophen [Tylenol] Med 12/05/17 14:35 Ordered 650 mg PO Q4H PRN Acetaminophen [Tylenol] Med 12/05/17 14:39 Ordered 650 mg PO Q4H PRN Clopidogrel [Plavix] Med 12/06/17 09:00 Ordered 75 mg PO DAILY Heparin Sodium Med 12/05/17 21:00 Ordered 5,000 units SUBCUT Q12HR Lactulose [Cephulac] Med 12/05/17 14:39 Ordered 20 gm PO BID PRN Ondansetron [Zofran ODT] Med 12/05/17 14:35 Ordered 4 mg PO Q6H PRN Rosuvastatin [Crestor] Med 12/05/17 14:45 Ordered 10 mg PO DAILY amLODIPine [Norvasc] Med 12/06/17 09:00 Ordered 5 mg PO DAILY Resuscitation Status Routine Resus Stat 12/05/17 14:35 Ordered Medication Orders Acetaminophen (Tylenol) 650 mg PO Q4H PRN PRN Reason: Pain (Mild 1-3)/fever Acetaminophen (Tylenol) 650 mg PO Q4H PRN PRN Reason: Pain Amlodipine Besylate (Norvasc) 5 mg PO DAILY [facility] Clopidogrel Bisulfate (Plavix) 75 mg PO DAILY [facility] Heparin Sodium (Porcine) (Heparin Sodium) 5,000 units SUBCUT Q12HR [facility] Lactulose (Cephulac) 20 gm PO BID PRN PRN Reason: constipation Ondansetron HCl (Zofran Odt) 4 mg PO Q6H PRN PRN Reason: nausea, able to take PO Rosuvastatin Calcium (Crestor) 10 mg PO DAILY [facility] Assessment/Plan Comment:: #. Acute encephalopathy THis was secondary to CVA Improved #.CVA MRI of the brain showed evidence of an acute infarct involving the right thalamus #. Probable acute urinary tract infection Urine culture grew staph epididymis-probably a contaminant #. Hypertension Blood pressure has been poorly controlled Plan Admit to swing bed physical therapy Occupational therapy Start pt on crestor Plavix 75 mg ASA discontinued
--- NOTE | 2017-12-05 14:53 | PCM.HPR ---
H & P Addendum review - H & P Addendum Review Date of Original H & P: 12/05/17 Please Note any Changes: History of present illness: The patient was admitted to the medical floor with acute cerebrovascular accident. MRI showed an acute infarct involving the right thalamus. The patient was evaluated by physical and occupational therapy. She has left hemiparesis. Her blood pressure was elevated above target range. Patient is being better I will be discharged to swing bed for continuation of physical and occupational therapy
[2017-12-05] MEDS: Rosuvastatin 10 MG Tab PO SCH (17:48)
[2017-12-05] MEDS: Heparin Sodium 5,000 Units/ML Vial SUBCUT SCH (20:49)
[2017-12-06] MEDS: Rosuvastatin 10 MG Tab PO SCH (08:39)
[2017-12-06] MEDS: Lisinopril 5 MG Tab PO SCH (08:39)
[2017-12-06] MEDS: amLODIPine 5 MG Tab PO SCH (08:39)
[2017-12-06 09:16] LABS: CHLORIDE,CL 99 mmol/L (101-111); SODIUM,NA 137 mmol/L (135-145)
[2017-12-06] MEDS: Clopidogrel 75 MG Tab PO SCH (11:29)
[2017-12-06] MEDS: Heparin Sodium 5,000 Units/ML Vial SUBCUT SCH ×2 (11:29→20:26)
[2017-12-07] MEDS: Heparin Sodium 5,000 Units/ML Vial SUBCUT SCH ×2 (09:26→20:08)
[2017-12-07] MEDS: Rosuvastatin 10 MG Tab PO SCH (09:26)
[2017-12-07] MEDS: amLODIPine 5 MG Tab PO SCH (09:27)
[2017-12-07] MEDS: Clopidogrel 75 MG Tab PO SCH (09:27)
[2017-12-07] MEDS: Lisinopril 5 MG Tab PO SCH (09:27)
[2017-12-07] MEDS: Acetaminophen 325 MG Tab PO PRN (20:04)
[2017-12-08] MEDS: Acetaminophen 325 MG Tab PO PRN ×2 (05:56→19:40)
[2017-12-08] MEDS: Rosuvastatin 10 MG Tab PO SCH (08:41)
[2017-12-08] MEDS: amLODIPine 5 MG Tab PO SCH (08:41)
[2017-12-08] MEDS: Clopidogrel 75 MG Tab PO SCH (08:41)
[2017-12-08] MEDS: Lisinopril 5 MG Tab PO SCH (08:42)
[2017-12-08] MEDS: Heparin Sodium 5,000 Units/ML Vial SUBCUT SCH ×2 (08:43→20:42)
[2017-12-09] MEDS: Clopidogrel 75 MG Tab PO SCH (08:36)
[2017-12-09] MEDS: amLODIPine 5 MG Tab PO SCH (08:36)
[2017-12-09] MEDS: Lisinopril 5 MG Tab PO SCH (08:36)
[2017-12-09] MEDS: Acetaminophen 325 MG Tab PO PRN ×2 (08:37→20:32)
[2017-12-09] MEDS: Rosuvastatin 10 MG Tab PO SCH (08:37)
[2017-12-09] MEDS: Heparin Sodium 5,000 Units/ML Vial SUBCUT SCH ×2 (08:38→20:29)
[2017-12-09] MEDS ORDERED: Benzocaine/Cetylpyridinium/Menthol Lozenge MUCMEM PRN (12:07)
[2017-12-10] MEDS: Clopidogrel 75 MG Tab PO SCH (09:06)
[2017-12-10] MEDS: Rosuvastatin 10 MG Tab PO SCH (09:06)
[2017-12-10] MEDS: amLODIPine 5 MG Tab PO SCH (09:07)
[2017-12-10] MEDS: Heparin Sodium 5,000 Units/ML Vial SUBCUT SCH ×2 (09:07→20:34)
[2017-12-10] MEDS: Lisinopril 5 MG Tab PO SCH (09:07)
[2017-12-10] MEDS: Tolterodine 2 MG Cap.ER PO SCH (11:13)
[2017-12-11] MEDS: Heparin Sodium 5,000 Units/ML Vial SUBCUT SCH ×2 (09:02→21:40)
[2017-12-11] MEDS: amLODIPine 5 MG Tab PO SCH (09:02)
[2017-12-11] MEDS: Lisinopril 5 MG Tab PO SCH (09:02)
[2017-12-11] MEDS: Tolterodine 2 MG Cap.ER PO SCH (09:02)
[2017-12-11] MEDS: Rosuvastatin 10 MG Tab PO SCH (09:02)
[2017-12-11] MEDS: Clopidogrel 75 MG Tab PO SCH (09:02)
[2017-12-12] MEDS: Lactulose Soln 10 GM/15 ML 30 ML UD Cup PO PRN (05:43)
[2017-12-12 07:00] LABS: CHLORIDE,CL 99 mmol/L (101-111); SODIUM,NA 137 mmol/L (135-145)
[2017-12-12] MEDS: Tolterodine 2 MG Cap.ER PO SCH (08:45)
[2017-12-12] MEDS: Lisinopril 5 MG Tab PO SCH (08:45)
[2017-12-12] MEDS: Heparin Sodium 5,000 Units/ML Vial SUBCUT SCH ×2 (08:45→21:27)
[2017-12-12] MEDS: Clopidogrel 75 MG Tab PO SCH (08:45)
[2017-12-12] MEDS: amLODIPine 5 MG Tab PO SCH (08:45)
[2017-12-12] MEDS: Rosuvastatin 10 MG Tab PO SCH (08:46)
--- NOTE | 2017-12-12 12:00 | PCM.PN ---
- General Info Date of Service: 12/12/17 Admission Dx/Problem (Free Text): Admission Diagnosis/Problem Admission Diagnosis/Problem CVA, Cerebrovascular accident Functional Status: Reports: Pain Controlled - Review of Systems General: Reports: Weakness. Denies: Fever Pulmonary: Denies: Shortness of Breath Cardiovascular: Denies: Chest Pain Neurological: Denies: Confusion - Patient Data Vitals - Most Recent: Last Vital Signs Temp 37.0 C 12/12/17 07:13 Pulse 93 12/12/17 07:13 Resp 16 12/12/17 07:13 BP 136/55 L 12/12/17 08:45 Pulse Ox 95 12/12/17 07:13 Weight - Most Recent: 60.328 kg I&O - Last 24 Hours: Intake & Output 12/11/17 12/12/17 12/12/17 22:59 06:59 14:59 Intake Total 250 Balance 250 Lab Results Last 24 Hours: Laboratory Results - last 24 hr 12/12/17 12/12/17 Range/Units 06:15 06:15 WBC 8.4 (5.0-10.0) 10^3/uL RBC 4.75 (4.2-5.4) 10^6/uL Hgb 14.7 (12.0-16.0) g/dL Hct 45.4 (37.0-47.0) % MCV 95.6 (80-100) fL MCH 30.9 (27.0-34.0) pg MCHC 32.4 L (33.0-35.0) g/dL Plt Count 206 (150-450) 10^3/uL Neut % (Auto) 46.0 (42.2-75.2) % Lymph % (Auto) 44.1 (20.5-50.1) % [place] % (Auto) 8.0 (2-8) % Eos % (Auto) 1.7 (1.0-3.0) % Baso % (Auto) 0.2 (0.0-1.0) % Sodium 137 (135-145) mmol/L Potassium 4.0 (3.6-5.0) mmol/L Chloride 99 L (101-111) mmol/L Carbon Dioxide 29.0 (21.0-31.0) mmol/L Anion Gap 13.0 BUN 21 H (7-18) mg/dL Creatinine 0.7 (0.6-1.3) mg/dL Est Cr Clr Drug Dosing 45.63 mL/min Estimated GFR (MDRD) > 60 Glucose 136 H (74-105) mg/dL Calcium 9.7 (8.4-10.2) mg/dl Med Orders - Current: Current Medications Acetaminophen (Tylenol) 650 mg PO Q4H PRN PRN Reason: Pain Last Admin: 12/09/17 20:32 Dose: 650 mg Amlodipine Besylate (Norvasc) 5 mg PO DAILY [facility] Last Admin: 12/12/17 08:45 Dose: 5 mg Benzocaine/Menthol (Cepacol Sore Throat) 1 lozenge MUCMEM QID PRN PRN Reason: Sore Throat Clopidogrel Bisulfate (Plavix) 75 mg PO DAILY [facility] Last Admin: 12/12/17 08:45 Dose: 75 mg Heparin Sodium (Porcine) (Heparin Sodium) 5,000 units SUBCUT Q12HR [facility] Last Admin: 12/12/17 08:45 Dose: 5,000 units Lactulose (Cephulac) 20 gm PO BID PRN PRN Reason: constipation Last Admin: 12/12/17 05:43 Dose: 20 gm Lisinopril (Prinivil) 5 mg PO DAILY [facility] Last Admin: 12/12/17 08:45 Dose: 5 mg Ondansetron HCl (Zofran Odt) 4 mg PO Q6H PRN PRN Reason: nausea, able to take PO Rosuvastatin Calcium (Crestor) 10 mg PO DAILY [facility] Last Admin: 12/12/17 08:46 Dose: 10 mg Tolterodine Tartrate (Detrol La 24 Hr) 2 mg PO DAILY [facility] Last Admin: 12/12/17 08:45 Dose: 2 mg - Exam General: Alert, Oriented Neck: Supple Lungs: Clear to Auscultation, Normal Respiratory Effort Cardiovascular: Regular Rate, Regular Rhythm GI/Abdominal Exam: Normal Bowel Sounds, Soft, Non-Tender Extremities: No Pedal Edema Neurological: Other (left hemiparesis) - Problem List Review Problem List Initiated/Reviewed/Updated: Yes - Plan Plan:: #. Acute encephalopathy THis was secondary to CVA resolved # acute ischemic CVA MRI of the brain showed evidence of an acute infarct involving the right thalamus treat with Plavix, statin admitted to [facility] bed for pt/ot #. Hypertension Blood pressure his well controlled Continue treatment with lisinopril and Norvasc # DVT prophylaxis with subcutaneous heparin
[2017-12-13] MEDS: Rosuvastatin 10 MG Tab PO SCH (09:26)
[2017-12-13] MEDS: Tolterodine 2 MG Cap.ER PO SCH (09:26)
[2017-12-13] MEDS: amLODIPine 5 MG Tab PO SCH (09:26)
[2017-12-13] MEDS: Lisinopril 5 MG Tab PO SCH (09:27)
[2017-12-13] MEDS: Clopidogrel 75 MG Tab PO SCH (09:27)
[2017-12-13] MEDS: Heparin Sodium 5,000 Units/ML Vial SUBCUT SCH ×2 (09:27→21:20)
[2017-12-14] MEDS: Rosuvastatin 10 MG Tab PO SCH (10:46)
[2017-12-14] MEDS: Lisinopril 5 MG Tab PO SCH (10:47)
[2017-12-14] MEDS: Heparin Sodium 5,000 Units/ML Vial SUBCUT SCH ×2 (10:48→20:21)
[2017-12-14] MEDS: Tolterodine 2 MG Cap.ER PO SCH (10:48)
[2017-12-14] MEDS: Lactulose Soln 10 GM/15 ML 30 ML UD Cup PO PRN ×2 (10:51→20:22)
[2017-12-14] MEDS: amLODIPine 5 MG Tab PO SCH (10:54)
[2017-12-14] MEDS: Clopidogrel 75 MG Tab PO SCH (11:01)
[2017-12-15] MEDS: Tolterodine 2 MG Cap.ER PO SCH (09:38)
[2017-12-15] MEDS: Clopidogrel 75 MG Tab PO SCH (09:38)
[2017-12-15] MEDS: Rosuvastatin 10 MG Tab PO SCH (09:38)
[2017-12-15] MEDS: amLODIPine 5 MG Tab PO SCH (09:38)
[2017-12-15] MEDS: Heparin Sodium 5,000 Units/ML Vial SUBCUT SCH ×2 (09:39→20:49)
[2017-12-15] MEDS: Lisinopril 5 MG Tab PO SCH (09:39)
[2017-12-15] MEDS: Lactulose Soln 10 GM/15 ML 30 ML UD Cup PO PRN ×2 (10:26→20:54)
[2017-12-15] MEDS: Ciprofloxacin 500 MG Tab PO SCH (13:35)
[2017-12-15] MEDS: Acetaminophen 325 MG Tab PO PRN (20:51)
[2017-12-16] MEDS: Ciprofloxacin 500 MG Tab PO SCH (09:21)
[2017-12-16] MEDS: Tolterodine 2 MG Cap.ER PO SCH (09:22)
[2017-12-16] MEDS: Heparin Sodium 5,000 Units/ML Vial SUBCUT SCH ×2 (09:22→21:32)
[2017-12-16] MEDS: amLODIPine 5 MG Tab PO SCH (09:22)
[2017-12-16] MEDS: Clopidogrel 75 MG Tab PO SCH (09:22)
[2017-12-16] MEDS: Rosuvastatin 10 MG Tab PO SCH (09:22)
[2017-12-16] MEDS: Lisinopril 5 MG Tab PO SCH (09:22)
[2017-12-16] MEDS: Acetaminophen 325 MG Tab PO PRN (21:34)
[2017-12-17] MEDS: Ciprofloxacin 500 MG Tab PO SCH (09:34)
[2017-12-17] MEDS: Tolterodine 2 MG Cap.ER PO SCH (09:36)
[2017-12-17] MEDS: Rosuvastatin 10 MG Tab PO SCH (09:36)
[2017-12-17] MEDS: amLODIPine 5 MG Tab PO SCH (09:37)
[2017-12-17] MEDS: Clopidogrel 75 MG Tab PO SCH (09:37)
[2017-12-17] MEDS: Lisinopril 5 MG Tab PO SCH (09:38)
--- NOTE | 2017-12-17 09:38 | PCM.PN ---
- General Info Date of Service: 12/17/17 Admission Dx/Problem (Free Text): Admission Diagnosis/Problem Admission Diagnosis/Problem CVA, Cerebrovascular accident Functional Status: Reports: Pain Controlled - Review of Systems General: Reports: No Symptoms HEENT: Reports: No Symptoms Pulmonary: Reports: No Symptoms Cardiovascular: Reports: No Symptoms Gastrointestinal: Reports: No Symptoms Genitourinary: Reports: No Symptoms Musculoskeletal: Reports: No Symptoms Skin: Reports: No Symptoms Neurological: Reports: No Symptoms Psychiatric: Reports: No Symptoms - Patient Data Vitals - Most Recent: Last Vital Signs Temp 96.6 F 12/17/17 06:46 Pulse 67 12/17/17 06:46 Resp 18 12/17/17 06:46 BP 125/42 L 12/17/17 06:46 Pulse Ox 97 12/17/17 06:46 Weight - Most Recent: 133 lb I&O - Last 24 Hours: Intake & Output 12/16/17 12/17/17 12/17/17 22:59 06:59 14:59 Intake Total 120 350 Output Total 225 Balance -105 350 Med Orders - Current: Current Medications Acetaminophen (Tylenol) 650 mg PO Q4H PRN PRN Reason: Pain Last Admin: 12/16/17 21:34 Dose: 650 mg Amlodipine Besylate (Norvasc) 5 mg PO DAILY [facility] Last Admin: 12/16/17 09:22 Dose: 5 mg Benzocaine/Menthol (Cepacol Sore Throat) 1 lozenge MUCMEM QID PRN PRN Reason: Sore Throat Ciprofloxacin (Ciprofloxacin Hcl) 250 mg PO DAILY [facility] Stop: 12/21/17 12:46 Last Admin: 12/16/17 09:21 Dose: 250 mg Clopidogrel Bisulfate (Plavix) 75 mg PO DAILY [facility] Last Admin: 12/16/17 09:22 Dose: 75 mg Heparin Sodium (Porcine) (Heparin Sodium) 5,000 units SUBCUT Q12HR [facility] Last Admin: 12/16/17 21:32 Dose: 5,000 units Lactulose (Cephulac) 20 gm PO BID PRN PRN Reason: constipation Last Admin: 12/15/17 20:54 Dose: 20 gm Lisinopril (Prinivil) 5 mg PO DAILY [facility] Last Admin: 12/16/17 09:22 Dose: 5 mg Ondansetron HCl (Zofran Odt) 4 mg PO Q6H PRN PRN Reason: nausea, able to take PO Rosuvastatin Calcium (Crestor) 10 mg PO DAILY [facility] Last Admin: 12/16/17 09:22 Dose: 10 mg Tolterodine Tartrate (Detrol La 24 Hr) 2 mg PO DAILY [facility] Last Admin: 12/16/17 09:22 Dose: 2 mg - Exam General: Alert, Oriented HEENT: Pupils Equal, Pupils Reactive, EOMI, Mucous Membr. Moist/[place] Neck: Supple Lungs: Clear to Auscultation, Normal Respiratory Effort Cardiovascular: Regular Rate, Regular Rhythm GI/Abdominal Exam: Normal Bowel Sounds, Soft, Non-Tender, No Organomegaly, No Distention, No Abnormal Bruit, No Mass, Pelvis Stable (Female) Exam: Normal External Exam, Normal Speculum Exam, Normal Bimanual Exam Back Exam: Normal Inspection, Full Range of Motion Extremities: Normal Inspection, Normal Range of Motion, Non-Tender, No Pedal Edema, Normal Capillary Refill Skin: Warm, Dry, Intact Wound/Incisions: Healing Well Neurological: No New Focal Deficit Psy/Mental Status: Alert, Normal Affect, Normal Mood - Problem List Review Problem List Initiated/Reviewed/Updated: Yes - My Orders Last 24 Hours: My Active Orders 12/16/17 18:31 Communication Order [RC] ROUTINE - Plan Plan:: #. Acute encephalopathy This was secondary to CVA resolved # acute ischemic CVA MRI of the brain showed evidence of an acute infarct involving the right thalamus Continue Plavix, statin Continue pt/ot #. Hypertension Blood pressure his well controlled Continue lisinopril and Norvasc # DVT prophylaxis with subcutaneous heparin
[2017-12-17] MEDS: Heparin Sodium 5,000 Units/ML Vial SUBCUT SCH ×2 (09:39→20:39)
[2017-12-18] MEDS: Ciprofloxacin 500 MG Tab PO SCH (08:11)
[2017-12-18] MEDS: Lisinopril 5 MG Tab PO SCH (08:12)
[2017-12-18] MEDS: Tolterodine 2 MG Cap.ER PO SCH (08:13)
[2017-12-18] MEDS: Rosuvastatin 10 MG Tab PO SCH (08:13)
[2017-12-18] MEDS: Heparin Sodium 5,000 Units/ML Vial SUBCUT SCH ×2 (08:13→21:02)
[2017-12-18] MEDS: Clopidogrel 75 MG Tab PO SCH (08:13)
[2017-12-18] MEDS: amLODIPine 5 MG Tab PO SCH (08:13)
[2017-12-19] MEDS: Acetaminophen 325 MG Tab PO PRN (09:00)
[2017-12-19] MEDS: Rosuvastatin 10 MG Tab PO SCH (10:13)
[2017-12-19] MEDS: Lisinopril 5 MG Tab PO SCH (10:14)
[2017-12-19] MEDS: Clopidogrel 75 MG Tab PO SCH (10:14)
[2017-12-19] MEDS: Ciprofloxacin 500 MG Tab PO SCH (10:14)
[2017-12-19] MEDS: Tolterodine 2 MG Cap.ER PO SCH (10:15)
[2017-12-19] MEDS: Heparin Sodium 5,000 Units/ML Vial SUBCUT SCH ×2 (10:15→20:43)
[2017-12-19] MEDS: amLODIPine 5 MG Tab PO SCH (10:16)
[2017-12-20] MEDS: Rosuvastatin 10 MG Tab PO SCH (09:50)
[2017-12-20] MEDS: Lisinopril 5 MG Tab PO SCH (09:51)
[2017-12-20] MEDS: Clopidogrel 75 MG Tab PO SCH (09:51)
[2017-12-20] MEDS: amLODIPine 5 MG Tab PO SCH (09:52)
[2017-12-20] MEDS: Tolterodine 2 MG Cap.ER PO SCH (09:52)
[2017-12-20] MEDS: Ciprofloxacin 500 MG Tab PO SCH (09:53)
[2017-12-20] MEDS: Heparin Sodium 5,000 Units/ML Vial SUBCUT SCH ×2 (09:54→21:15)
[2017-12-21] MEDS: Clopidogrel 75 MG Tab PO SCH (09:13)
[2017-12-21] MEDS: amLODIPine 5 MG Tab PO SCH (09:13)
[2017-12-21] MEDS: Rosuvastatin 10 MG Tab PO SCH (09:13)
[2017-12-21] MEDS: Ciprofloxacin 500 MG Tab PO SCH (09:13)
[2017-12-21] MEDS: Heparin Sodium 5,000 Units/ML Vial SUBCUT SCH ×2 (09:13→20:32)
[2017-12-21] MEDS: Tolterodine 2 MG Cap.ER PO SCH (09:13)
[2017-12-21] MEDS: Lisinopril 5 MG Tab PO SCH (09:13)
[2017-12-21] MEDS: Lactulose Soln 10 GM/15 ML 30 ML UD Cup PO PRN (13:55)
[2017-12-22] MEDS: Lisinopril 5 MG Tab PO SCH (09:22)
[2017-12-22] MEDS: amLODIPine 5 MG Tab PO SCH (09:22)
[2017-12-22] MEDS: Tolterodine 2 MG Cap.ER PO SCH (09:22)
[2017-12-22] MEDS: Clopidogrel 75 MG Tab PO SCH (09:22)
[2017-12-22] MEDS: Rosuvastatin 10 MG Tab PO SCH (09:23)
[2017-12-22] MEDS: Heparin Sodium 5,000 Units/ML Vial SUBCUT SCH ×2 (09:23→21:04)
[2017-12-23] MEDS: amLODIPine 5 MG Tab PO SCH (08:47)
[2017-12-23] MEDS: Tolterodine 2 MG Cap.ER PO SCH (08:47)
[2017-12-23] MEDS: Rosuvastatin 10 MG Tab PO SCH (08:47)
[2017-12-23] MEDS: Clopidogrel 75 MG Tab PO SCH (08:48)
[2017-12-23] MEDS: Heparin Sodium 5,000 Units/ML Vial SUBCUT SCH ×2 (08:48→22:41)
[2017-12-23] MEDS: Lisinopril 5 MG Tab PO SCH (08:48)
[2017-12-23] MEDS: Lactulose Soln 10 GM/15 ML 30 ML UD Cup PO PRN (08:54)
[2017-12-24] MEDS: Tolterodine 2 MG Cap.ER PO SCH (08:48)
[2017-12-24] MEDS: Rosuvastatin 10 MG Tab PO SCH (08:48)
[2017-12-24] MEDS: Heparin Sodium 5,000 Units/ML Vial SUBCUT SCH ×2 (08:49→20:22)
[2017-12-24] MEDS: Clopidogrel 75 MG Tab PO SCH (08:49)
[2017-12-24] MEDS: amLODIPine 5 MG Tab PO SCH (08:49)
[2017-12-24] MEDS: Lisinopril 5 MG Tab PO SCH (08:49)
[2017-12-24] MEDS: Carboxymethylcellulose Sodium 1% Ophth Gel 0.4 ML UD EYEBOTH PRN ×2 (15:30→20:34)
[2017-12-24] MEDS: Acetaminophen 325 MG Tab PO PRN (21:31)
[2017-12-25] MEDS: Heparin Sodium 5,000 Units/ML Vial SUBCUT SCH ×3 (09:04→20:38)
[2017-12-25] MEDS: Clopidogrel 75 MG Tab PO SCH (09:05)
[2017-12-25] MEDS: Tolterodine 2 MG Cap.ER PO SCH (09:05)
[2017-12-25] MEDS: Lisinopril 5 MG Tab PO SCH (09:05)
[2017-12-25] MEDS: Rosuvastatin 10 MG Tab PO SCH (09:05)
[2017-12-25] MEDS: amLODIPine 5 MG Tab PO SCH (09:05)
[2017-12-25] MEDS: Carboxymethylcellulose Sodium 1% Ophth Gel 0.4 ML UD EYEBOTH PRN (12:08)
[2017-12-25] MEDS: Acetaminophen 325 MG Tab PO PRN (12:08)
--- NOTE | 2017-12-25 12:50 | PCM.PN ---
- General Info Date of Service: 12/25/17 Admission Dx/Problem (Free Text): Admission Diagnosis/Problem Admission Diagnosis/Problem CVA, Cerebrovascular accident Subjective Update: Patient has no complaint other than left arm weakness and mild headache. Tylenol is helping. He thinks her left arm is better now. She denies fever, chills, nausea, vomiting, chest pain, shortness breath, abdominal pain, urinary symptoms, any other symptoms or concern. - Patient Data Vitals - Most Recent: Last Vital Signs Temp 36.6 C 12/25/17 08:11 Pulse 84 12/25/17 08:11 Resp 20 12/25/17 08:11 BP 151/51 H 12/25/17 09:05 Pulse Ox 95 12/25/17 08:11 Weight - Most Recent: 59.602 kg I&O - Last 24 Hours: Intake & Output 12/24/17 12/25/17 12/25/17 22:59 06:59 14:59 Intake Total 580 75 200 Balance 580 75 200 Med Orders - Current: Current Medications Acetaminophen (Tylenol) 650 mg PO Q4H PRN PRN Reason: Pain Last Admin: 12/25/17 12:08 Dose: 650 mg Amlodipine Besylate (Norvasc) 5 mg PO DAILY [facility] Last Admin: 12/25/17 09:05 Dose: 5 mg Artificial Tears (Refresh Celluvisc) 1 each EYEBOTH Q4H PRN PRN Reason: Dry Eyes Last Admin: 12/25/17 12:08 Dose: 1 each Benzocaine/Menthol (Cepacol Sore Throat) 1 lozenge MUCMEM QID PRN PRN Reason: Sore Throat Clopidogrel Bisulfate (Plavix) 75 mg PO DAILY [facility] Last Admin: 12/25/17 09:05 Dose: 75 mg Heparin Sodium (Porcine) (Heparin Sodium) 5,000 units SUBCUT Q12HR [facility] Last Admin: 12/25/17 10:46 Dose: 5,000 units Lactulose (Cephulac) 20 gm PO BID PRN PRN Reason: constipation Last Admin: 12/23/17 08:54 Dose: 20 gm Lisinopril (Prinivil) 5 mg PO DAILY [facility] Last Admin: 12/25/17 09:05 Dose: 5 mg Ondansetron HCl (Zofran Odt) 4 mg PO Q6H PRN PRN Reason: nausea, able to take PO Rosuvastatin Calcium (Crestor) 10 mg PO DAILY [facility] Last Admin: 12/25/17 09:05 Dose: 10 mg Tolterodine Tartrate (Detrol La 24 Hr) 2 mg PO DAILY [facility] Last Admin: 12/25/17 09:05 Dose: 2 mg Discontinued Medications Ciprofloxacin (Ciprofloxacin Hcl) 250 mg PO DAILY [facility] Stop: 12/21/17 12:46 Last Admin: 12/21/17 09:13 Dose: 250 mg - Exam General: Alert, Oriented, Cooperative. No: No Acute Distress, Mild Distress, Moderate Distress, Severe Distress, Sedated, Lethargic, Obtunded HEENT: Pupils Equal, Pupils Reactive, EOMI, Mucous Membr. Moist/[place] Neck: Supple, Trachea Midline, No JVD Lungs: Clear to Auscultation, Normal Respiratory Effort Cardiovascular: Regular Rate, Regular Rhythm, No Murmurs GI/Abdominal Exam: Normal Bowel Sounds, Soft, Non-Tender, No Organomegaly, No Distention, No Mass (Female) Exam: Deferred Back Exam: Normal Inspection, Full Range of Motion. No: CVA Tenderness (L), CVA Tenderness (R) Extremities: Normal Inspection, Non-Tender, No Pedal Edema, Normal Capillary Refill Skin: Warm, Dry, Intact Neurological: No New Focal Deficit Psy/Mental Status: Alert, Normal Affect, Normal Mood - Problem List Review Problem List Initiated/Reviewed/Updated: Yes - My Orders Last 24 Hours: My Active Orders 12/24/17 14:24 Carboxymethylcellulose Sodium [Refresh Celluvisc] 1 each EYEBOTH Q4H PRN - Plan Plan:: #Headache Continue Tylenol as needed #Acute encephalopathy This was secondary to CVA resolved #acute ischemic CVA MRI of the brain showed evidence of an acute infarct involving the right thalamus Continue Plavix, statin Continue pt/ot #Essential Hypertension Blood pressure his well controlled Continue lisinopril and Norvasc # Heparin for DVT prophylaxis
[2017-12-26] MEDS: Lisinopril 5 MG Tab PO SCH (08:56)
[2017-12-26] MEDS: amLODIPine 5 MG Tab PO SCH (08:56)
[2017-12-26] MEDS: Clopidogrel 75 MG Tab PO SCH (08:56)
[2017-12-26] MEDS: Rosuvastatin 10 MG Tab PO SCH (08:56)
[2017-12-26] MEDS: Tolterodine 2 MG Cap.ER PO SCH (08:57)
[2017-12-26] MEDS: Acetaminophen 325 MG Tab PO PRN (08:57)
[2017-12-26] MEDS: Heparin Sodium 5,000 Units/ML Vial SUBCUT SCH ×2 (08:57→20:45)
[2017-12-26] MEDS: Lactulose Soln 10 GM/15 ML 30 ML UD Cup PO PRN (08:58)
[2017-12-26] MEDS: Carboxymethylcellulose Sodium 1% Ophth Gel 0.4 ML UD EYEBOTH PRN ×2 (11:53→21:58)
[2017-12-27] MEDS: Acetaminophen 325 MG Tab PO PRN ×4 (00:09→20:08)
[2017-12-27] MEDS: Carboxymethylcellulose Sodium 1% Ophth Gel 0.4 ML UD EYEBOTH PRN ×3 (05:32→20:09)
[2017-12-27] MEDS: amLODIPine 5 MG Tab PO SCH (08:51)
[2017-12-27] MEDS: Rosuvastatin 10 MG Tab PO SCH (08:51)
[2017-12-27] MEDS: Clopidogrel 75 MG Tab PO SCH (08:51)
[2017-12-27] MEDS: Tolterodine 2 MG Cap.ER PO SCH (08:51)
[2017-12-27] MEDS: Heparin Sodium 5,000 Units/ML Vial SUBCUT SCH ×2 (08:52→20:09)
[2017-12-27] MEDS: Lisinopril 5 MG Tab PO SCH (08:52)
[2017-12-27] MEDS: Lactulose Soln 10 GM/15 ML 30 ML UD Cup PO PRN (15:33)
[2017-12-28] MEDS: Acetaminophen 325 MG Tab PO PRN (07:47)
[2017-12-28] MEDS: Tolterodine 2 MG Cap.ER PO SCH (08:00)
[2017-12-28] MEDS: Lisinopril 5 MG Tab PO SCH (08:00)
[2017-12-28] MEDS: Heparin Sodium 5,000 Units/ML Vial SUBCUT SCH ×2 (08:00→20:22)
[2017-12-28] MEDS: amLODIPine 5 MG Tab PO SCH (08:00)
[2017-12-28] MEDS: Rosuvastatin 10 MG Tab PO SCH (08:00)
[2017-12-28] MEDS: Clopidogrel 75 MG Tab PO SCH (08:00)
[2017-12-29] MEDS: Tolterodine 2 MG Cap.ER PO SCH (09:28)
[2017-12-29] MEDS: Rosuvastatin 10 MG Tab PO SCH (09:30)
[2017-12-29] MEDS: Clopidogrel 75 MG Tab PO SCH (09:31)
[2017-12-29] MEDS: Lisinopril 5 MG Tab PO SCH (09:31)
[2017-12-29] MEDS: amLODIPine 5 MG Tab PO SCH (09:32)
[2017-12-29] MEDS: Heparin Sodium 5,000 Units/ML Vial SUBCUT SCH ×2 (09:33→20:34)
[2017-12-30] MEDS: Acetaminophen 325 MG Tab PO PRN ×2 (02:46→20:11)
[2017-12-30] MEDS: Heparin Sodium 5,000 Units/ML Vial SUBCUT SCH ×2 (09:48→20:12)
[2017-12-30] MEDS: Clopidogrel 75 MG Tab PO SCH (09:51)
[2017-12-30] MEDS: Tolterodine 2 MG Cap.ER PO SCH (09:51)
[2017-12-30] MEDS: Rosuvastatin 10 MG Tab PO SCH (09:51)
[2017-12-30] MEDS: Lisinopril 5 MG Tab PO SCH (10:20)
[2017-12-30] MEDS: amLODIPine 5 MG Tab PO SCH (10:21)
[2017-12-30] MEDS: [UNRECOGNIZED DRUG - OTHER] EYEBOTH PRN (20:12)
[2017-12-31 07:00] LABS: CHLORIDE,CL 104 mmol/L (101-111); SODIUM,NA 138 mmol/L (135-145)
[2017-12-31] MEDS: Lisinopril 5 MG Tab PO SCH (08:58)
[2017-12-31] MEDS: Rosuvastatin 10 MG Tab PO SCH (08:58)
[2017-12-31] MEDS: Tolterodine 2 MG Cap.ER PO SCH (08:59)
[2017-12-31] MEDS: amLODIPine 5 MG Tab PO SCH (08:59)
[2017-12-31] MEDS: Clopidogrel 75 MG Tab PO SCH (08:59)
[2017-12-31] MEDS: Heparin Sodium 5,000 Units/ML Vial SUBCUT SCH ×2 (09:00→20:26)
--- NOTE | 2017-12-31 17:09 | PCM.PN ---
- General Info Date of Service: 12/31/17 Admission Dx/Problem (Free Text): Admission Diagnosis/Problem Admission Diagnosis/Problem CVA, Cerebrovascular accident Subjective Update: Patient has no complaint other than mild left arm weakness. had constipation, on stool softener. She denies fever, chills, nausea, vomiting, chest pain, shortness breath, abdominal pain, urinary symptoms, any other symptoms or concern. Functional Status: Reports: Pain Controlled - Review of Systems General: Denies: Fever, Weakness Pulmonary: Denies: Shortness of Breath Cardiovascular: Denies: Chest Pain Gastrointestinal: Denies: Abdominal Pain Neurological: Denies: Confusion - Patient Data Vitals - Most Recent: Last Vital Signs Temp 36.7 C 12/31/17 15:18 Pulse 71 12/31/17 15:18 Resp 20 12/31/17 15:18 BP 130/44 L 12/31/17 15:18 Pulse Ox 98 12/31/17 15:18 Weight - Most Recent: 59.421 kg I&O - Last 24 Hours: Intake & Output 12/31/17 12/31/17 12/31/17 06:59 14:59 22:59 Intake Total 675 Balance 675 Lab Results Last 24 Hours: Laboratory Results - last 24 hr 12/31/17 12/31/17 Range/Units 06:10 06:10 WBC 6.4 (5.0-10.0) 10^3/uL RBC 4.20 (4.2-5.4) 10^6/uL Hgb 13.0 D (12.0-16.0) g/dL Hct 40.6 (37.0-47.0) % MCV 96.7 (80-100) fL MCH 31.0 (27.0-34.0) pg MCHC 32.0 L (33.0-35.0) g/dL Plt Count 164 (150-450) 10^3/uL Neut % (Auto) 41.3 L (42.2-75.2) % Lymph % (Auto) 46.6 (20.5-50.1) % Casey % (Auto) 8.0 (2-8) % Eos % (Auto) 3.6 H (1.0-3.0) % Baso % (Auto) 0.5 (0.0-1.0) % Sodium 138 (135-145) mmol/L Potassium 3.7 (3.6-5.0) mmol/L Chloride 104 (101-111) mmol/L Carbon Dioxide 28.0 (21.0-31.0) mmol/L Anion Gap 9.7 BUN 14 (7-18) mg/dL Creatinine 0.7 (0.6-1.3) mg/dL Est Cr Clr Drug Dosing 45.63 mL/min Estimated GFR (MDRD) > 60 Glucose 106 H (74-105) mg/dL Calcium 9.7 (8.4-10.2) mg/dl Med Orders - Current: Current Medications Acetaminophen (Tylenol) 650 mg PO Q4H PRN PRN Reason: Pain Last Admin: 12/30/17 20:11 Dose: 650 mg Amlodipine Besylate (Norvasc) 5 mg PO DAILY [facility] Last Admin: 12/31/17 08:59 Dose: 5 mg Benzocaine/Menthol (Cepacol Sore Throat) 1 lozenge MUCMEM QID PRN PRN Reason: Sore Throat Clopidogrel Bisulfate (Plavix) 75 mg PO DAILY [facility] Last Admin: 12/31/17 08:59 Dose: 75 mg Heparin Sodium (Porcine) (Heparin Sodium) 5,000 units SUBCUT Q12HR [facility] Last Admin: 12/31/17 09:00 Dose: 5,000 units Lactulose (Cephulac) 20 gm PO BID PRN PRN Reason: constipation Last Admin: 12/27/17 15:33 Dose: 20 gm Lisinopril (Prinivil) 5 mg PO DAILY [facility] Last Admin: 12/31/17 08:58 Dose: 5 mg Thera Tears Lubricant Eye Drops Own Med 0 each EYEBOTH BID PRN PRN Reason: Dry Eyes Last Admin: 12/30/17 20:12 Dose: 1 each Ondansetron HCl (Zofran Odt) 4 mg PO Q6H PRN PRN Reason: nausea, able to take PO Rosuvastatin Calcium (Crestor) 10 mg PO DAILY [facility] Last Admin: 12/31/17 08:58 Dose: 10 mg Senna/Docusate Sodium (Senna Plus) 1 tab PO BID [facility] Last Admin: 12/31/17 08:58 Dose: 1 tab Tolterodine Tartrate (Detrol La 24 Hr) 2 mg PO DAILY [facility] Last Admin: 12/31/17 08:59 Dose: 2 mg Discontinued Medications Artificial Tears (Refresh Celluvisc) 1 each EYEBOTH Q4H PRN PRN Reason: Dry Eyes Last Admin: 12/27/17 20:09 Dose: 1 each Ciprofloxacin (Ciprofloxacin Hcl) 250 mg PO DAILY [facility] Stop: 12/21/17 12:46 Last Admin: 12/21/17 09:13 Dose: 250 mg - Exam General: Alert, Oriented Neck: Supple Lungs: Clear to Auscultation, Normal Respiratory Effort Cardiovascular: Regular Rate, Regular Rhythm GI/Abdominal Exam: Normal Bowel Sounds, Soft, Non-Tender Extremities: No Pedal Edema - Problem List Review Problem List Initiated/Reviewed/Updated: Yes - Plan Plan:: #Acute encephalopathy This was secondary to CVA resolved #acute ischemic CVA MRI of the brain showed evidence of an acute infarct involving the right thalamus Continue Plavix, statin Continue pt/ot #Essential Hypertension Blood pressure is well controlled Continue lisinopril and Norvasc # Heparin for DVT prophylaxis # Constipation coninue stool softeners
[2017-12-31] MEDS: [UNRECOGNIZED DRUG - OTHER] EYEBOTH PRN (20:38)
[2018-01-01] MEDS: Rosuvastatin 10 MG Tab PO SCH (08:37)
[2018-01-01] MEDS: Clopidogrel 75 MG Tab PO SCH (08:37)
[2018-01-01] MEDS: amLODIPine 5 MG Tab PO SCH (08:37)
[2018-01-01] MEDS: Lisinopril 5 MG Tab PO SCH (08:37)
[2018-01-01] MEDS: Tolterodine 2 MG Cap.ER PO SCH (08:37)
[2018-01-01] MEDS: Heparin Sodium 5,000 Units/ML Vial SUBCUT SCH ×2 (08:38→22:21)
[2018-01-01] MEDS: [UNRECOGNIZED DRUG - OTHER] EYEBOTH PRN (10:15)
[2018-01-02] MEDS: Lisinopril 5 MG Tab PO SCH (09:12)
[2018-01-02] MEDS: Clopidogrel 75 MG Tab PO SCH (09:12)
[2018-01-02] MEDS: amLODIPine 5 MG Tab PO SCH (09:12)
[2018-01-02] MEDS: Heparin Sodium 5,000 Units/ML Vial SUBCUT SCH ×2 (09:13→21:00)
[2018-01-02] MEDS: Tolterodine 2 MG Cap.ER PO SCH (09:13)
[2018-01-02] MEDS: Rosuvastatin 10 MG Tab PO SCH (09:13)
[2018-01-02] MEDS: [UNRECOGNIZED DRUG - OTHER] EYEBOTH PRN (19:28)
[2018-01-02] MEDS ORDERED: Simethicone 80 MG Tab.Chew PO PRN (20:06)
[2018-01-03] MEDS: Lisinopril 5 MG Tab PO SCH (08:35)
[2018-01-03] MEDS: Rosuvastatin 10 MG Tab PO SCH (08:35)
[2018-01-03] MEDS: Clopidogrel 75 MG Tab PO SCH (08:35)
[2018-01-03] MEDS: amLODIPine 5 MG Tab PO SCH (08:35)
[2018-01-03] MEDS: Heparin Sodium 5,000 Units/ML Vial SUBCUT SCH ×2 (08:36→20:48)
[2018-01-03] MEDS: Tolterodine 2 MG Cap.ER PO SCH (08:36)
[2018-01-03] MEDS: Acetaminophen 325 MG Tab PO PRN (12:51)
[2018-01-03] MEDS: [UNRECOGNIZED DRUG - OTHER] EYEBOTH PRN (20:52)
[2018-01-04] MEDS: Clopidogrel 75 MG Tab PO SCH (08:53)
[2018-01-04] MEDS: Tolterodine 2 MG Cap.ER PO SCH (08:53)
[2018-01-04] MEDS: Rosuvastatin 10 MG Tab PO SCH (08:53)
[2018-01-04] MEDS: Lisinopril 5 MG Tab PO SCH (08:54)
[2018-01-04] MEDS: amLODIPine 5 MG Tab PO SCH (08:54)
[2018-01-04] MEDS: Heparin Sodium 5,000 Units/ML Vial SUBCUT SCH ×2 (08:54→20:23)
[2018-01-04] MEDS ORDERED: diphenhydrAMINE 25 MG Tab PO PRN (18:44)
[2018-01-04] MEDS ORDERED: Fluticasone Propionate Nasal Spray 16 GM Bottle NASBOTH PRN (18:44)
[2018-01-05] MEDS: Lisinopril 5 MG Tab PO SCH (08:48)
[2018-01-05] MEDS: Rosuvastatin 10 MG Tab PO SCH (08:48)
[2018-01-05] MEDS: Tolterodine 2 MG Cap.ER PO SCH (08:48)
[2018-01-05] MEDS: amLODIPine 5 MG Tab PO SCH (08:48)
[2018-01-05] MEDS: Heparin Sodium 5,000 Units/ML Vial SUBCUT SCH ×2 (08:49→20:32)
[2018-01-05] MEDS: Clopidogrel 75 MG Tab PO SCH (08:49)
[2018-01-05] MEDS: [UNRECOGNIZED DRUG - OTHER] EYEBOTH PRN (08:53)
[2018-01-05] MEDS: Acetaminophen 325 MG Tab PO PRN (13:06)
[2018-01-06] MEDS: Heparin Sodium 5,000 Units/ML Vial SUBCUT SCH ×2 (08:48→20:38)
[2018-01-06] MEDS: amLODIPine 5 MG Tab PO SCH (08:48)
[2018-01-06] MEDS: Clopidogrel 75 MG Tab PO SCH (08:49)
[2018-01-06] MEDS: Rosuvastatin 10 MG Tab PO SCH (08:49)
[2018-01-06] MEDS: Lisinopril 5 MG Tab PO SCH (08:49)
[2018-01-06] MEDS: Tolterodine 2 MG Cap.ER PO SCH (08:49)
[2018-01-07] MEDS: amLODIPine 5 MG Tab PO SCH (09:46)
[2018-01-07] MEDS: Rosuvastatin 10 MG Tab PO SCH (09:46)
[2018-01-07] MEDS: Heparin Sodium 5,000 Units/ML Vial SUBCUT SCH ×2 (09:46→21:45)
[2018-01-07] MEDS: Clopidogrel 75 MG Tab PO SCH (09:46)
[2018-01-07] MEDS: Lisinopril 5 MG Tab PO SCH (09:46)
[2018-01-07] MEDS: Tolterodine 2 MG Cap.ER PO SCH (09:46)
--- NOTE | 2018-01-07 12:39 | PN ---
DATE: 01/07/2018 SUBJECTIVE: Ms. Jeanna Ruiz is an 87-year-old female with medical history significant for hypertension, hyperlipidemia, admitted to the hospital with acute cerebrovascular accident, resulting in mild left arm weakness, admitted to the swing bed for continued physical therapy and occupational therapy. For the last 24 hours, the patient denies any complaints of chest pain. No shortness of breath. No abdominal pain. No nausea. No vomiting. Continues to have mild weakness to the left upper extremity. Continued with physical therapy and occupational therapy. REVIEW OF SYSTEMS: Cardiovascular, respiratory, gastrointestinal, neurology, constitutional were all evaluated. PHYSICAL EXAMINATION: Vital Signs: Temperature of 98.9, pulse of 80, blood pressure 140/54, respiratory rate of 20, saturating at 96% on room air. General Appearance: The patient is well oriented to time and person. Follows commands spontaneously. Cardiovascular System: S1, S2 heard with normal intensity. No gallops. Respiratory System: Clear to auscultation bilaterally. No wheeze. No crepitations. Abdomen: Soft. Bowel sounds positive. Nontender. No rigidity. Extremities: No edema in bilateral lower extremities. Neurology: Mild weakness, 4/5 power to the left upper extremity. MEDICATIONS: Reviewed, continue with, 1. Tylenol 650 every 4 hours as needed for pain. 2. Norvasc 5 mg daily. 3. Cepacol lozenges 4 times a day as needed for sore throat. 4. Plavix 75 mg daily. 5. Benadryl 25 mg 3 times a day as needed for allergies. 6. Flonase as needed. 7. Heparin 5000 subcutaneously q.12 hourly. 8. Lisinopril 5 mg daily. 9. Zofran 4 mg every 6 hours as needed. 10.Crestor 10 mg daily. 11.Simethicone 80 mg twice a day as needed. 12.Detrol 2 mg daily. LABORATORY DATA: No new labs ordered for today. ASSESSMENT: 1. Acute cerebrovascular accident resulting in left upper extremity weakness with hemiparesis. 2. Hypertension. 3. Hyperlipidemia. 4. Acute encephalopathy. PLAN: 1. Acute cerebrovascular accident. The patient had MRI scan of the brain which showed evidence of acute infarct involving the right thalamic region. She is noted to have mild left arm weakness. We will continue with physical therapy and occupational therapy. Continue with statin, continue with Plavix, and closely monitor blood pressure and optimize the blood pressure. 2. Hypertension. Blood pressure seems to be in acceptable range. Continue with current antihypertensive medications with Norvasc. 3. DVT prophylaxis. Continue with heparin for DVT prophylaxis. 4. Hyperlipidemia. The patient is currently on rosuvastatin, continue the same. 5. Continue with physical therapy and occupational therapy while in the swing bed. MODL /[id number]
[2018-01-07] MEDS ORDERED: amLODIPine 5 MG Tab PO ONE (16:24)
[2018-01-07] MEDS ORDERED: Clopidogrel 75 MG Tab PO ONE (16:24)
[2018-01-07] MEDS ORDERED: Tolterodine 2 MG Cap.ER PO ONE (16:24)
[2018-01-07] MEDS ORDERED: Rosuvastatin 10 MG Tab PO ONE (16:24)
[2018-01-07] MEDS ORDERED: Lisinopril 5 MG Tab PO ONE (16:24)
[2018-01-07] MEDS ORDERED: Heparin Sodium 5,000 Units/ML Vial SUBCUT ONE (16:24)
[2018-01-08] MEDS: Rosuvastatin 10 MG Tab PO SCH (08:35)
[2018-01-08] MEDS: Clopidogrel 75 MG Tab PO SCH (08:35)
[2018-01-08] MEDS: Tolterodine 2 MG Cap.ER PO SCH (08:35)
[2018-01-08] MEDS: Lisinopril 5 MG Tab PO SCH (08:36)
[2018-01-08] MEDS: Heparin Sodium 5,000 Units/ML Vial SUBCUT SCH ×2 (08:36→21:25)
[2018-01-08] MEDS: amLODIPine 5 MG Tab PO SCH (08:37)
[2018-01-08] MEDS: [UNRECOGNIZED DRUG - OTHER] EYEBOTH PRN (21:26)
[2018-01-09] MEDS: Heparin Sodium 5,000 Units/ML Vial SUBCUT SCH ×2 (08:58→20:34)
[2018-01-09] MEDS: Clopidogrel 75 MG Tab PO SCH (08:58)
[2018-01-09] MEDS: amLODIPine 5 MG Tab PO SCH (08:58)
[2018-01-09] MEDS: Rosuvastatin 10 MG Tab PO SCH (08:58)
[2018-01-09] MEDS: Tolterodine 2 MG Cap.ER PO SCH (08:59)
[2018-01-09] MEDS: Lisinopril 5 MG Tab PO SCH (08:59)
[2018-01-10] MEDS: amLODIPine 5 MG Tab PO SCH (08:05)
[2018-01-10] MEDS: Rosuvastatin 10 MG Tab PO SCH (08:05)
[2018-01-10] MEDS: Lisinopril 5 MG Tab PO SCH (08:05)
[2018-01-10] MEDS: Tolterodine 2 MG Cap.ER PO SCH (08:05)
[2018-01-10] MEDS: Heparin Sodium 5,000 Units/ML Vial SUBCUT SCH ×2 (08:05→20:32)
[2018-01-10] MEDS: Clopidogrel 75 MG Tab PO SCH (08:05)
[2018-01-11] MEDS: Lisinopril 5 MG Tab PO SCH (08:33)
[2018-01-11] MEDS: amLODIPine 5 MG Tab PO SCH (08:34)
[2018-01-11] MEDS: Clopidogrel 75 MG Tab PO SCH (08:34)
[2018-01-11] MEDS: Rosuvastatin 10 MG Tab PO SCH (08:34)
[2018-01-11] MEDS: Tolterodine 2 MG Cap.ER PO SCH (08:36)
[2018-01-11] MEDS: Heparin Sodium 5,000 Units/ML Vial SUBCUT SCH ×2 (08:38→20:23)
[2018-01-11] MEDS: Acetaminophen 325 MG Tab PO PRN ×3 (11:17→20:23)
[2018-01-11] MEDS: [UNRECOGNIZED DRUG - OTHER] EYEBOTH PRN ×2 (14:00→20:27)
[2018-01-11] MEDS: Carbamide Peroxide 6.5% Otic Soln 15 ML Bottle EARBOTH SCH ×3 (14:02→20:31)
[2018-01-12] MEDS: [UNRECOGNIZED DRUG - OTHER] EYEBOTH PRN (09:00)
[2018-01-12] MEDS: Clopidogrel 75 MG Tab PO SCH (09:01)
[2018-01-12] MEDS: Lisinopril 5 MG Tab PO SCH (09:01)
[2018-01-12] MEDS: amLODIPine 5 MG Tab PO SCH (09:01)
[2018-01-12] MEDS: Rosuvastatin 10 MG Tab PO SCH (09:02)
[2018-01-12] MEDS: Tolterodine 2 MG Cap.ER PO SCH (09:02)
[2018-01-12] MEDS: Acetaminophen 325 MG Tab PO PRN ×2 (09:02→20:51)
[2018-01-12] MEDS: Heparin Sodium 5,000 Units/ML Vial SUBCUT SCH ×2 (09:04→20:50)
[2018-01-12] MEDS: Carbamide Peroxide 6.5% Otic Soln 15 ML Bottle EARBOTH SCH ×3 (09:05→20:51)
[2018-01-13] MEDS: Rosuvastatin 10 MG Tab PO SCH (09:45)
[2018-01-13] MEDS: Clopidogrel 75 MG Tab PO SCH (09:47)
[2018-01-13] MEDS: Heparin Sodium 5,000 Units/ML Vial SUBCUT SCH ×2 (09:48→20:25)
[2018-01-13] MEDS: Carbamide Peroxide 6.5% Otic Soln 15 ML Bottle EARBOTH SCH ×3 (09:49→20:28)
[2018-01-13] MEDS: [UNRECOGNIZED DRUG - OTHER] EYEBOTH PRN (09:49)
[2018-01-13] MEDS: Tolterodine 2 MG Cap.ER PO SCH (11:51)
[2018-01-13] MEDS: Lisinopril 5 MG Tab PO SCH (12:04)
[2018-01-13] MEDS: amLODIPine 5 MG Tab PO SCH (12:04)
[2018-01-14] MEDS: Tolterodine 2 MG Cap.ER PO SCH (09:28)
[2018-01-14] MEDS: Clopidogrel 75 MG Tab PO SCH (09:28)
[2018-01-14] MEDS: Rosuvastatin 10 MG Tab PO SCH (09:28)
[2018-01-14] MEDS: Lisinopril 5 MG Tab PO SCH (09:29)
[2018-01-14] MEDS: amLODIPine 5 MG Tab PO SCH (09:29)
[2018-01-14] MEDS: Carbamide Peroxide 6.5% Otic Soln 15 ML Bottle EARBOTH SCH (09:30)
[2018-01-14] MEDS: Heparin Sodium 5,000 Units/ML Vial SUBCUT SCH (09:31)
[2018-01-15] MEDS: Carbamide Peroxide 6.5% Otic Soln 15 ML Bottle EARBOTH SCH ×2 (02:52→08:53)
[2018-01-15] MEDS: Heparin Sodium 5,000 Units/ML Vial SUBCUT SCH ×2 (02:52→08:48)
[2018-01-15] MEDS: Clopidogrel 75 MG Tab PO SCH (08:48)
[2018-01-15] MEDS: Rosuvastatin 10 MG Tab PO SCH (08:48)
[2018-01-15] MEDS: amLODIPine 5 MG Tab PO SCH (08:49)
[2018-01-15] MEDS: Tolterodine 2 MG Cap.ER PO SCH (08:49)
[2018-01-15] MEDS: Lisinopril 5 MG Tab PO SCH (08:50)
--- NOTE | 2018-01-15 09:49 | PCM.DCSUM1 ---
Discharge Summary - Hospital Course Free Text/Narrative:: 87 years old lady who admitted to swing bed for further physical therapy after acute hospital stay for ischemic stroke. #Acute encephalopathy This was secondary to CVA resolved #acute ischemic CVA MRI of the brain showed evidence of an acute infarct involving the right thalamus Continue Plavix, statin much improved with pt/ot She will need to front wheeled walker for mobility following stroke, likely lifelong. She will be mobile at home. I don't think a cane will be enough. She will need the walker likely lifelong. #Essential Hypertension Blood pressure is well controlled Continue lisinopril and Norvasc - Discharge Data Discharge Date: 01/15/18 Discharge Disposition: Home, Self-Care 01 Condition: Good - Patient Summary/Data Consults: Consultations 12/05/17 14:35 OT Evaluation and Treatment [CONS] Routine PT Evaluation and Treatment [CONS] Routine 12/11/17 09:42 Consult to Speech Language Pathology [SWIMMER Evaluation and Treatment] [CONS] Routine 01/07/18 18:21 Consult to Speech Language Pathology [SWIMMER Evaluation and Treatment] [CONS] Routine - Patient Instructions Diet: Heart Healthy Diet Activity: As Tolerated - Discharge Plan Prescriptions/Med Rec: Clopidogrel [Plavix] 75 mg PO DAILY #30 tablet Lisinopril [Prinivil] 5 mg PO DAILY #30 tablet Rosuvastatin [Crestor] 10 mg PO DAILY #30 tablet Tolterodine [Detrol LA 24 Hr] 2 mg PO DAILY #30 cap.er Home Medications: Home Meds amLODIPine Besylate [Amlodipine Besylate] 5 mg PO DAILY 10/26/17 [History] Clopidogrel [Plavix] 75 mg PO DAILY #30 tablet 01/15/18 [Rx] Lisinopril [Prinivil] 5 mg PO DAILY #30 tablet 01/15/18 [Rx] Rosuvastatin [Crestor] 10 mg PO DAILY #30 tablet 01/15/18 [Rx] Tolterodine [Detrol LA 24 Hr] 2 mg PO DAILY #30 cap.er 01/15/18 [Rx] Referrals: PCP,Unknown [Ordering Only Provider] - (in 1 week) - Discharge Summary/Plan Comment DC Time >30 min.: No - General Info Date of Service: 01/15/18 Admission Dx/Problem (Free Text: Admission Diagnosis/Problem Admission Diagnosis/Problem CVA, Cerebrovascular accident Subjective Update: She's feeling well, ready to go home. She will need a walker. Functional Status: Reports: Pain Controlled - Review of Systems General: Denies: Fever Pulmonary: Denies: Shortness of Breath Cardiovascular: Denies: Chest Pain Gastrointestinal: Denies: Abdominal Pain Neurological: Denies: Confusion - Patient Data Vitals - Most Recent: Last Vital Signs Temp 36.7 C 01/15/18 08:07 Pulse 72 01/15/18 08:07 Resp 20 01/15/18 08:07 BP 120/43 L 01/15/18 08:50 Pulse Ox 98 01/15/18 08:07 Weight - Most Recent: 58.287 kg Med Orders - Current: Current Medications Acetaminophen (Tylenol) 650 mg PO Q4H PRN PRN Reason: Pain Last Admin: 01/12/18 20:51 Dose: 650 mg Amlodipine Besylate (Norvasc) 5 mg PO DAILY [facility] Last Admin: 01/15/18 08:49 Dose: 5 mg Benzocaine/Menthol (Cepacol Sore Throat) 1 lozenge MUCMEM QID PRN PRN Reason: Sore Throat Carbamide Perox/Anhydrous Glycerin (Debrox 6.5% Otic Soln) 0 ml EARBOTH TID [facility] Last Admin: 01/15/18 08:53 Dose: 5 drop Clopidogrel Bisulfate (Plavix) 75 mg PO DAILY [facility] Last Admin: 01/15/18 08:48 Dose: 75 mg Diphenhydramine HCl (Benadryl) 25 mg PO TID PRN PRN Reason: Allergies Fluticasone Propionate (Flonase) 0 gm NASBOTH DAILY PRN PRN Reason: Congestion Heparin Sodium (Porcine) (Heparin Sodium) 5,000 units SUBCUT Q12HR [facility] Last Admin: 01/15/18 08:48 Dose: 5,000 units Lactulose (Cephulac) 20 gm PO BID PRN PRN Reason: constipation Last Admin: 12/27/17 15:33 Dose: 20 gm Lisinopril (Prinivil) 5 mg PO DAILY [facility] Last Admin: 01/15/18 08:50 Dose: 5 mg Thera Tears Lubricant Eye Drops Own Med 0 each EYEBOTH BID PRN PRN Reason: Dry Eyes Last Admin: 01/13/18 09:49 Dose: 1 each Ondansetron HCl (Zofran Odt) 4 mg PO Q6H PRN PRN Reason: nausea, able to take PO Rosuvastatin Calcium (Crestor) 10 mg PO DAILY [facility] Last Admin: 01/15/18 08:48 Dose: 10 mg Senna/Docusate Sodium (Senna Plus) 1 tab PO BID [facility] Last Admin: 01/15/18 08:48 Dose: 1 tab Simethicone (Simethicone) 80 mg PO BID PRN PRN Reason: Gas Last Admin: 01/02/18 21:00 Dose: 80 mg Tolterodine Tartrate (Detrol La 24 Hr) 2 mg PO DAILY [facility] Last Admin: 01/15/18 08:49 Dose: Not Given Discontinued Medications Amlodipine Besylate (Norvasc) 5 mg PO .STK-MED ONE Stop: 01/07/18 16:25 Artificial Tears (Refresh Celluvisc) 1 each EYEBOTH Q4H PRN PRN Reason: Dry Eyes Last Admin: 12/27/17 20:09 Dose: 1 each Ciprofloxacin (Ciprofloxacin Hcl) 250 mg PO DAILY [facility] Stop: 12/21/17 12:46 Last Admin: 12/21/17 09:13 Dose: 250 mg Clopidogrel Bisulfate (Plavix) 75 mg PO .STK-MED ONE Stop: 01/07/18 16:25 Heparin Sodium (Porcine) (Heparin Sodium) 5,000 units SUBCUT .STK-MED ONE Stop: 01/07/18 16:25 Lisinopril (Prinivil) 5 mg PO .STK-MED ONE Stop: 01/07/18 16:25 Rosuvastatin Calcium (Crestor) 10 mg PO .STK-MED ONE Stop: 01/07/18 16:25 Senna/Docusate Sodium (Senna Plus) 1 tab PO .STK-MED ONE Stop: 01/07/18 16:25 Tolterodine Tartrate (Detrol La 24 Hr) 2 mg PO .STK-MED ONE Stop: 01/07/18 16:25 - Exam Quality Assessment: Denies: Supplemental Oxygen General: Reports: Alert, Oriented Neck: Reports: Supple Lungs: Reports: Clear to Auscultation, Normal Respiratory Effort Cardiovascular: Reports: Regular Rate, Regular Rhythm GI/Abdominal Exam: Normal Bowel Sounds, Soft, Non-Tender Extremities: No Pedal Edema Neurological: Reports: Other (Mild left-sided weakness) Psy/Mental Status: Reports: Alert, Normal Affect, Normal Mood
[2018-01-15 16:15] VITALS: BP 145/54
== END 2018-01-15 14:15 | disposition home or self-care (01) | DRG 64 ==
LOC: DL.MS 14:35
PROVIDERS: ADMIT Hospitalist; ATTEND Hospitalist
DX: I63.8 Other cerebral infarction (principal); G93.49 Other encephalopathy; G83.24 Monoplegia of upper limb affecting left nondominant side; I10 Essential (primary) hypertension; H54.7 Unspecified visual loss; I48.91 Unspecified atrial fibrillation; E78.00 Pure hypercholesterolemia, unspecified; K57.90 Diverticulosis of intestine, part unspecified, without perforation or abscess without bleeding; K44.9 Diaphragmatic hernia without obstruction or gangrene; N81.89 Other female genital prolapse; R32 Unspecified urinary incontinence; M81.0 Age-related osteoporosis without current pathological fracture; K59.00 Constipation, unspecified; R51 Headache; E78.5 Hyperlipidemia, unspecified; Z87.891 Personal history of nicotine dependence; Z79.02 Long term (current) use of antithrombotics/antiplatelets; Z79.899 Other long term (current) drug therapy
CPT/HCPCS: 36415; 80048; 81001; 81003; 84484; 85025; 85027; 92507-GN; 97110-GO; 97110-GP; 97116-GP; 97162-GP; 97166-GO; 97168-GO; 97530-GO; 97530-GP; 97535-GO; A9270-GY; J1644

== ENCOUNTER 2018-01-17 10:33 | Observation (INO) | payer MEDICARE, OTHER ==
--- NOTE | 2018-01-17 10:42 | EDM.PDOC ---
ED HPI GENERAL MEDICAL PROBLEM - General Chief Complaint: General Stated Complaint: WEAKNESS IN BY AMBULANCE Time Seen by Provider: 01/17/18 10:34 Source of Information: Reports: Patient, EMS, Old Records, RN, RN Notes Reviewed History Limitations: Reports: No Limitations - History of Present Illness INITIAL COMMENTS - FREE TEXT/NARRATIVE: Pt arrives from home by ambulance with report that she was d/c'd home from swing bed on 01/15/18 following admission for ischemic stroke, who this morning was sitting in a chair when she suddenly felt like she might "pass out" and told the paramedics that she did not lose consciousness. However, now the pt states that she did faint in her chair and completely lost consciousness for a brief time. The Sx's lasted about 5 minutes, then resolved but left her feeling "dizzy" and shaking all over. Pt states she has had recurrent dizziness/ lightheadedness since being discharged. Pt states that she lives alone, and did not feel safe so she called 911. She denies chest pain, palpitations, SOB, orthopnea, edema, headache, visual changes, difficulty swallowing, speech changes, or loss or bowel or bladder control. Onset: Today Onset Date: 01/17/18 Duration: Improving Location: Reports: Generalized Severity: Severe Improves with: Reports: None Worsens with: Reports: None Associated Symptoms: Reports: No Other Symptoms - Related Data Allergies Allergy/AdvReac Type Severity Reaction Status Date / Time No Known Allergies Allergy Verified 01/17/18 10:38 Home Meds: Home Meds amLODIPine Besylate [Amlodipine Besylate] 5 mg PO DAILY 10/26/17 [History] Clopidogrel [Plavix] 75 mg PO DAILY #30 tablet 01/15/18 [Rx] Lisinopril [Prinivil] 5 mg PO DAILY #30 tablet 01/15/18 [Rx] Rosuvastatin [Crestor] 10 mg PO DAILY #30 tablet 01/15/18 [Rx] Tolterodine [Detrol LA 24 Hr] 2 mg PO DAILY #30 cap.er 01/15/18 [Rx] Past Medical History HEENT History: Reports: Cataract, Impaired Vision, Other (See Below) Other HEENT History: floaters Cardiovascular History: Reports: Afib, High Cholesterol, Hypertension Respiratory History: Reports: None Gastrointestinal History: Reports: Diverticulosis, Hiatal Hernia Genitourinary History: Reports: Urinary Incontinence, Other (See Below) Other Genitourinary History: 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 -- 75 MM (2 15/16IN) 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 (See Below) Other OB/BYN History: PELVIC RELAXATION DISORDER - WEARS PESSARY Musculoskeletal History: Reports: Osteoporosis Neurological History: Reports: CVA (ischemic 2018) Psychiatric History: Reports: None Endocrine/Metabolic History: Reports: None Hematologic History: Reports: None Immunologic History: Reports: None Oncologic (Cancer) History: Reports: None Dermatologic History: Reports: None - Infectious Disease History Infectious Disease History: Reports: Mumps - Past Surgical History HEENT Surgical History: Reports: Cataract Surgery Cardiovascular Surgical History: Reports: None Respiratory Surgical History: Reports: None GI Surgical History: Reports: Appendectomy Neurological Surgical History: Reports: None Musculoskeletal Surgical History: Reports: Other (See Below) Other Musculoskeletal Surgeries/Procedures:: left arm Fx Social & Family History - Family History Family Medical History: Noncontributory Neurological: Reports: Alzheimers Disease - Tobacco Use Smoking Status *Q: Former Smoker Tobacco Use Within Last Twelve Months: Cigarettes - Caffeine Use Caffeine Use: Reports: Coffee, Soda, Tea - Alcohol Use Alcohol Use History: No - Recreational Drug Use Recreational Drug Use: No - Living Situation & Occupation Living situation: Reports: , Alone Occupation: Retired ED ROS GENERAL - Review of Systems Review Of Systems: ROS reveals no pertinent complaints other than HPI. ED EXAM, GENERAL - Physical Exam Exam: See Below Exam Limited By: No Limitations General Appearance: Alert, No Apparent Distress, Anxious, Other (frail elderly female, non-toxic appearing) Eye Exam: Bilateral Eye: Normal Inspection Ears: Hearing Grossly Normal Nose: Normal Inspection, Normal Mucosa, No Blood Throat/Mouth: Normal Inspection, Normal Oropharynx, Normal Voice, No Airway Compromise Head: Atraumatic, Normocephalic Neck: Normal Inspection, Supple, Non-Tender, Full Range of Motion Respiratory/Chest: No Respiratory Distress, Lungs Clear, Normal Breath Sounds, No Accessory Muscle Use, Chest Non-Tender Cardiovascular: Normal Peripheral Pulses, Regular Rate, Rhythm, No Edema, No Gallop, No JVD, No Murmur, No Rub GI/Abdominal: Normal Bowel Sounds, Soft, Non-Tender, No Organomegaly, No Distention, No Abnormal Bruit (Female) Exam: Deferred Rectal (Female) Exam: Deferred Back Exam: Normal Inspection. No: CVA Tenderness (L), CVA Tenderness (R) Extremities: Normal Inspection, Normal Range of Motion, Non-Tender, Normal Capillary Refill, No Pedal Edema Neurological: Alert, Oriented, Normal Cognition, Sensory/Motor Deficit (chronic/ stable), Other (generalized weakness/deconditioning, ) Psychiatric: Normal Affect, Normal Mood Skin Exam: Warm, Dry, Intact, Normal Color, No Rash EKG INTERPRETATION EKG Date: 01/17/18 Rhythm: Other (SR) Laurel: LAD-Left Laurel Deviation P-Wave: Present QRS: Other (LVH) ST-T: Normal QT: Normal Comparison: No Change Course - Vital Signs Last Recorded V/S: Last Vital Signs Temp 36.6 C 01/17/18 10:41 Pulse 93 01/17/18 10:41 Resp 18 01/17/18 10:41 BP 153/71 H 01/17/18 10:41 Pulse Ox 96 01/17/18 10:41 Orthostatic Blood Pressure [ 110/56 Standing] Orthostatic Blood Pressure [ 106/46 Sitting] Orthostatic Blood Pressure [ 134/61 Supine] Supine to sitting sBP 134 drops to 106 sitting. - Orders/Labs/Meds Orders: Active Orders 24 hr Category Date Time Status EKG 12 Lead [EKG Documentation Completion] [RC] STAT Care 01/17/18 11:00 Active Peripheral IV Care [RC] . DIRECTED Care 01/17/18 11:01 Active DRUG SCREEN URINE BIORAD [URCHEM] Stat Lab 01/17/18 10:44 Ordered TSH ULTRASENSITIVE [CHEM] Stat Lab 01/17/18 11:06 Received Sodium Chloride 0.9% [Saline Flush] Med 01/17/18 11:00 Active 10 ml FLUSH ASDIRECTED PRN Peripheral IV Insertion Adult [OM.PC] Stat Oth 01/17/18 11:00 Ordered Medication Orders Sodium Chloride (Saline Flush) 10 ml FLUSH ASDIRECTED PRN PRN Reason: Keep Vein Open Last Admin: 01/17/18 11:14 Dose: 10 ml Labs: Laboratory Tests 01/17/18 01/17/18 01/17/18 Range/Units 10:44 10:44 11:06 WBC 6.6 (5.0-10.0) 10^3/uL RBC 4.18 L (4.2-5.4) 10^6/uL Hgb 13.0 (12.0-16.0) g/dL Hct 40.0 (37.0-47.0) % MCV 95.7 (80-100) fL MCH 31.1 (27.0-34.0) pg MCHC 32.5 L (33.0-35.0) g/dL Plt Count 198 (150-450) 10^3/uL Neut % (Auto) 60.3 (42.2-75.2) % Lymph % (Auto) 30.1 (20.5-50.1) % Dolores % (Auto) 8.2 H (2-8) % Eos % (Auto) 1.1 (1.0-3.0) % Baso % (Auto) 0.3 (0.0-1.0) % Sodium (135-145) mmol/L Potassium (3.6-5.0) mmol/L Chloride (101-111) mmol/L Carbon Dioxide (21.0-31.0) mmol/L Anion Gap BUN (7-18) mg/dL Creatinine (0.6-1.3) mg/dL Est Cr Clr Drug Dosing mL/min Estimated GFR (MDRD) BUN/Creatinine Ratio Glucose (74-105) mg/dL Calcium (8.4-10.2) mg/dl Magnesium (1.8-2.5) mg/dL Total Bilirubin (0.2-1.0) mg/dL AST (10-42) IU/L ALT (10-60) IU/L Alkaline Phosphatase (42-121) IU/L Troponin I (0.00-0.02) ng/ml Total Protein (6.7-8.2) g/dl Albumin (3.2-5.5) g/dl Globulin Albumin/Globulin Ratio Urine Color Yellow (YELLOW) Urine Appearance Slightly cloudy (CLEAR) Urine pH 6.0 (5.0-9.0) Ur Specific [place] 1.010 (1.005-1.030) Urine Protein Negative (NEGATIVE) Urine Glucose (UA) Negative (NEGATIVE) Urine Ketones Negative (NEGATIVE) Urine Occult Blood Negative (NEGATIVE) Urine Nitrite Negative (NEGATIVE) Urine Bilirubin Negative (NEGATIVE) Urine Urobilinogen 0.2 (0.2-1.0) mg/dL Ur Leukocyte Esterase Negative (NEGATIVE) Urine RBC 0-5 /HPF Urine WBC 0-5 (0-5/HPF) /HPF Ur Epithelial Cells Rare /HPF Urine Bacteria Rare (0-FEW/HPF) /HPF Urine Opiates Screen Negative (NEGATIVE) Ur Oxycodone Screen Negative (NEGATIVE) Urine Methadone Screen Negative (NEGATIVE) Ur Barbiturates Screen Negative (NEGATIVE) U Tricyclic Antidepress Negative (NEGATIVE) Ur Phencyclidine Scrn Negative (NEGATIVE) Ur Amphetamine Screen Negative (NEGATIVE) U Methamphetamines Scrn Negative (NEGATIVE) Urine MDMA Screen Negative (NEGATIVE) U Benzodiazepines Scrn Negative (NEGATIVE) Urine Cocaine Screen Negative (NEGATIVE) U Marijuana (THC) Screen Negative (NEGATIVE) Ethyl Alcohol mg/dL 01/17/18 Range/Units 11:06 WBC (5.0-10.0) 10^3/uL RBC (4.2-5.4) 10^6/uL Hgb (12.0-16.0) g/dL Hct (37.0-47.0) % MCV (80-100) fL MCH (27.0-34.0) pg MCHC (33.0-35.0) g/dL Plt Count (150-450) 10^3/uL Neut % (Auto) (42.2-75.2) % Lymph % (Auto) (20.5-50.1) % Dolores % (Auto) (2-8) % Eos % (Auto) (1.0-3.0) % Baso % (Auto) (0.0-1.0) % Sodium 137 (135-145) mmol/L Potassium 4.2 (3.6-5.0) mmol/L Chloride 102 (101-111) mmol/L Carbon Dioxide 27.0 (21.0-31.0) mmol/L Anion Gap 12.2 BUN 17 (7-18) mg/dL Creatinine 0.8 (0.6-1.3) mg/dL Est Cr Clr Drug Dosing 41.76 mL/min Estimated GFR (MDRD) > 60 BUN/Creatinine Ratio 21.25 Glucose 132 H (74-105) mg/dL Calcium 9.9 (8.4-10.2) mg/dl Magnesium 2.2 (1.8-2.5) mg/dL Total Bilirubin 0.7 (0.2-1.0) mg/dL AST 25 (10-42) IU/L ALT 23 (10-60) IU/L Alkaline Phosphatase 54 (42-121) IU/L Troponin I < 0.02 (0.00-0.02) ng/ml Total Protein 6.9 (6.7-8.2) g/dl Albumin 4.1 (3.2-5.5) g/dl Globulin 2.8 Albumin/Globulin Ratio 1.46 Urine Color (YELLOW) Urine Appearance (CLEAR) Urine pH (5.0-9.0) Ur Specific [place] (1.005-1.030) Urine Protein (NEGATIVE) Urine Glucose (UA) (NEGATIVE) Urine Ketones (NEGATIVE) Urine Occult Blood (NEGATIVE) Urine Nitrite (NEGATIVE) Urine Bilirubin (NEGATIVE) Urine Urobilinogen (0.2-1.0) mg/dL Ur Leukocyte Esterase (NEGATIVE) Urine RBC /HPF Urine WBC (0-5/HPF) /HPF Ur Epithelial Cells /HPF Urine Bacteria (0-FEW/HPF) /HPF Urine Opiates Screen (NEGATIVE) Ur Oxycodone Screen (NEGATIVE) Urine Methadone Screen (NEGATIVE) Ur Barbiturates Screen (NEGATIVE) U Tricyclic Antidepress (NEGATIVE) Ur Phencyclidine Scrn (NEGATIVE) Ur Amphetamine Screen (NEGATIVE) U Methamphetamines Scrn (NEGATIVE) Urine MDMA Screen (NEGATIVE) U Benzodiazepines Scrn (NEGATIVE) Urine Cocaine Screen (NEGATIVE) U Marijuana (THC) Screen (NEGATIVE) Ethyl Alcohol < 5 mg/dL Meds: Medications Generic Name Dose Route Start Last Admin Trade Name Freq PRN Reason Stop Dose Admin Sodium Chloride 10 ml 01/17/18 11:00 01/17/18 11:14 Saline Flush FLUSH 10 ml ASDIRECTED PRN Administration Keep Vein Open - Radiology Interpretation Free Text/Narrative:: CT Head: chronic age related changes and prior ischemic CVA, no acute process per Rad. report. CXR: no acute process per Rad. report. Departure - Departure Time of Disposition: 11:52 (admitted to Dr. Ba) Disposition: Admitted As Inpatient 67 Condition: Fair Clinical Impression: Orthostatic lightheadedness, Generalized weakness Syncope Qualifiers: Syncope type: vasovagal syncope Qualified Code(s): R55 - Syncope and collapse - Discharge Information Forms: ED Department Discharge - My Orders Last 24 Hours: My Active Orders 01/17/18 10:44 DRUG SCREEN URINE BIORAD [URCHEM] Stat 01/17/18 11:00 EKG 12 Lead [EKG Documentation Completion] [RC] STAT Sodium Chloride 0.9% [Saline Flush] 10 ml FLUSH ASDIRECTED PRN Peripheral IV Insertion Adult [OM.PC] Stat 01/17/18 11:01 Peripheral IV Care [RC] . DIRECTED 01/17/18 11:06 TSH ULTRASENSITIVE [CHEM] Stat - Assessment/Plan Last 24 Hours: My Active Orders 01/17/18 10:44 DRUG SCREEN URINE BIORAD [URCHEM] Stat 01/17/18 11:00 EKG 12 Lead [EKG Documentation Completion] [RC] STAT Sodium Chloride 0.9% [Saline Flush] 10 ml FLUSH ASDIRECTED PRN Peripheral IV Insertion Adult [OM.PC] Stat 01/17/18 11:01 Peripheral IV Care [RC] . DIRECTED 01/17/18 11:06 TSH ULTRASENSITIVE [CHEM] Stat
--- NOTE | 2018-01-17 11:09 | CT ---
Clinical history: 87-year-old 129 pound hypertensive female history of cardiac and renal disease; "la rge thalamic infarct on the right"; and now, dizziness/weakness. Rule out intracranial bleed or other new intracranial abnormality. Scan technique: Volume acquisition of data emergency unenhanced CT scan of the head and brain obtaine d while the patient was lying supine on the Siemens multi slice scanner [place], [place]. All data archived in the PACS system for storage, reformatting and study (bone/br ain windows). Interpretation: Abnormal. 1. Uniformly thick bony calvarium without sign of skull fracture, underlying brain contusion or epidu ral/subdural hematoma. 2. Age-appropriate generally symmetric but moderate severe cerebral cortical and cerebellar atrophy. 3. Large thalamic infarct on the right (encephalomalacia) initially documented on [address] sc an of the head (confirmed on subsequent MRI scan 03 December 2017). 4. Microvascular ischemic changes scattered throughout the periventricular matter of both cerebral he mispheres. 5. No new supratentorial or posterior fossa mass lesions. No hydrocephalus. Normal brainstem. 6. No sign of acute intracerebral/intraventricular/subarachnoid bleed. 7. Symmetric clear pneumatization of the mastoid and paranasal sinuses. CONCLUSION: Chronic ischemic changes both cerebral hemispheres, generalized atrophy, and right thalam ic infarct (ischemic). No new signs of intracranial mass, hydrocephalus or bleed.
[2018-01-17] MEDS: Sodium Chloride 0.9% 10 ML Syringe FLUSH PRN (11:14)
--- NOTE | 2018-01-17 11:19 | CR ---
Clinical history: 87-year-old female with history of heart disease, microvascular intracranial ischem ic disease with old thalamic stroke (on the right) and now weakness/dizziness. 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 Normal cardiac silhouette without cephalization of vascular flow, alveolar edema or dependent pleural effusion. No lung mass, hilar lymphadenopathy or focal lobar pneumonia. No atelectasis/collapse. No pneumothorax. CONCLUSION: No acute cardiopulmonary abnormality
[2018-01-17 11:35] LABS: CHLORIDE,CL 102 mmol/L (101-111); SODIUM,NA 137 mmol/L (135-145)
[2018-01-17] MEDS ORDERED: Sodium Chloride 0.9% 1,000 ML IV SCH (13:15)
[2018-01-17] MEDS: Rosuvastatin 10 MG Tab PO SCH (20:51)
[2018-01-18 06:56] LABS: CHLORIDE,CL 106 mmol/L (101-111); SODIUM,NA 139 mmol/L (135-145)
--- NOTE | 2018-01-18 07:04 | HP ---
DATE OF SERVICE: 01/17/2018 CHIEF COMPLAINT: Dizziness. HISTORY OF PRESENT ILLNESS: Ms. Jeanna Ruiz is an 87-year-old female with medical history significant for hypertension, hyperlipidemia, history of diverticulosis, osteoporosis, and paroxysmal atrial fibrillation, recently diagnosed with acute cerebrovascular accident, resulting in left upper extremity weakness, hemiparesis, secondary to right-sided thalamic stroke. She was admitted to acute care settings before in November and got discharged recently 2 days back from the swing bed to home with home health care. After going home, she has been apparently normal except for today where she had a dizzy spell and came back to the emergency room. While in the emergency room, the patient was noted to have orthostatic vitals positive where her blood pressure was dropping down when standing up requiring admission to the hospital and further workup. At this time, the patient claims that earlier today while she was sitting down on the couch, she felt dizzy and almost passed out. This occurred for almost 1 minute and then got resolved. She did not have any headaches or changes in the vision during this episode. She did not have any chest pains or shortness of breath. She denies any fevers or chills in the last 2 days. No cough with sputum in the last 2 days. No nausea, vomiting, or diarrhea in the last 2 days. No complaints of abdominal pain. The patient is apparently back to her baseline function at this time. She claims of intermittent episodes of dizziness especially when she is standing and walking around, but she denied any loss of consciousness recently. The patient denied any history of chest pains on exertion. No history of dyspnea on exertion. No history of orthopnea or paroxysmal nocturnal dyspnea. The patient denied any history of hematemesis, hematochezia, or melenic stools. Normal bowel and bladder habits otherwise. REVIEW OF SYSTEMS: A complete review of systems including skin, ear, nose, and throat, cardiovascular system, respiratory system, gastrointestinal system, genitourinary system, hematology, oncology, neurology, allergy, immunology were all evaluated and were negative except for the above-said notes. PAST MEDICAL HISTORY: Significant for, 1. Hypertension, hyperlipidemia, paroxysmal atrial fibrillation. 2. Recent cerebrovascular accident with right thalamic stroke. 3. Pelvic relaxation disorder. 4. Osteoporosis. SURGICAL HISTORY: None significant. FAMILY HISTORY: History of Alzheimer disease in her daughter. SOCIAL HISTORY: No history of alcohol use. No history of smoking tobacco. ALLERGIES: No known drug allergies. HOME MEDICATIONS: Include, 1. Norvasc 5 mg daily. 2. Detrol 2 mg daily. 3. Rosuvastatin 10 mg daily. 4. Lisinopril 5 mg daily. 5. Plavix 75 mg daily. PHYSICAL EXAMINATION: Vital Signs: Temperature of 98.7, pulse of 71, blood pressure 151/54, respiratory rate of 20, saturating at 99% on room air. General Appearance: The patient is well oriented to time, place, and person. Follows commands spontaneously. Cardiovascular System: S1, S2 heard with normal intensity. No gallops. Respiratory System: Clear to auscultation bilaterally. No wheeze. No crepitations. Abdomen: Soft. Bowel sounds positive. Nontender. No rigidity. Extremities: No edema, bilateral lower extremities. Neurology: Mild weakness to the left upper extremity, otherwise no other focal neurological deficit appreciated at this time. LABORATORY DATA: WBC 6.8, hemoglobin 13.3, hematocrit 40.8, platelet count 179. Sodium 137, potassium 4, chloride 103, bicarbonate 26, BUN 17, creatinine 0.8, glucose of 109, total bilirubin 0.7, alkaline phosphatase 62, AST 22, ALT 15, total bilirubin 0.7. The patient had orthostatic vitals done in the emergency room and her blood pressure dropped from 153/71 to 126/51 with heart rate of 76 and then dropped to 106/46 upon standing with heart rate of 84. Urinalysis negative. Urine toxicology screen negative. CT scan of the head done in the emergency room shows chronic ischemic changes, both cerebral hemispheres, generalized atrophy, and right thalamic infarct. No new signs of intracranial mass, hydrocephalus, or bleed. Chest x-ray shows no acute cardiopulmonary abnormalities. ASSESSMENT: 1. Dizziness and presyncopal episode. 2. Hypertension. 3. Positive orthostatic vitals. 4. Hyperlipidemia. 5. Paroxysmal atrial fibrillation. PLAN: 1. Dizziness. The patient presents with dizziness and is noted to have orthostatic vitals positive, could be resulting from poor oral intake and also noted to be on Norvasc. We will discontinue the Norvasc for now, which could potentially cause orthostatic vitals. We will closely monitor blood pressure. We will give her 500 mL of IV normal saline to keep her hydrated and we will closely follow. 2. Cerebrovascular accident. The patient continues to have mild weakness of the left upper extremity. We will continue with PT, OT while in the hospital. 3. Hypertension. The patient's blood pressure seems to be in acceptable range as she is noted to have orthostatic vitals, we will discontinue the Norvasc for now, but continue with lisinopril. 4. Hyperlipidemia, continue with statin. 5. DVT prophylaxis. We will have her on Lovenox for DVT prophylaxis. 6. Code status. The patient wants to be full code. 7. Discussed with family members at bedside. Discussed with Dr. Rosen regarding the plan of care. Reviewed the labs and medications. Reviewed the old charts. MODL /[id number] [facility]
[2018-01-18] MEDS: Enoxaparin 40 MG/0.4 ML Syringe SUBCUT SCH (09:51)
[2018-01-18] MEDS: Clopidogrel 75 MG Tab PO SCH (09:51)
--- NOTE | 2018-01-18 13:55 | PN ---
DATE: 01/18/2018 SUBJECTIVE: Mrs. Jeanna Ruiz is an 87-year-old female with medical history significant for hypertension, hyperlipidemia, history of diverticulosis, osteoporosis, and paroxysmal atrial fibrillation, recently diagnosed with acute cerebrovascular accident resulting in left upper extremity weakness and noted to have right-sided thalamic stroke, got admitted to the hospital at this time with complaints of dizziness. For the last 24 hours, the patient denied any further complaints of dizziness. She denies any chest pain. No shortness of breath. No abdominal pain. No nausea. No vomiting. No diarrhea. No acute events noted on the Telemetry Unit. She remained in normal sinus rhythm. REVIEW OF SYSTEMS: Cardiovascular, respiratory, gastrointestinal, neurology, constitutional were all evaluated. PHYSICAL EXAMINATION: Vital Signs: Temperature of 98.9, pulse of 79, blood pressure 142/52, respiratory rate of 14, and saturating at 98% on room air. General Appearance: The patient is well oriented to time, place, and person. Follows commands spontaneously. Cardiovascular System: S1, S2 heard with normal intensity. No gallops. Respiratory System: Clear to auscultation bilaterally. No wheeze. No crepitations. Abdomen: Soft. Bowel sounds positive. Nontender. No rigidity. No guarding. No rebound tenderness. Extremities: No edema in the bilateral lower extremities. Neurological: Mild weakness to the left upper extremity. No other focal neurological deficits. MEDICATIONS: Medications reviewed. Continue with: 1. Plavix 75 mg daily. 2. Lovenox 40 mg daily. 3. Lisinopril 5 mg daily. 4. Crestor 10 mg at bedtime. LABORATORY DATA: Sodium 139, potassium 4.1, chloride 106, bicarb 27, BUN 15, creatinine 0.7, glucose 113. ASSESSMENT: 1. Dizziness. 2. Hypertension. 3. Hyperlipidemia. 4. Recent cerebrovascular accident, resulting in left upper extremity weakness. PLAN: 1. Dizziness. The patient denies any further complaints of dizziness. Her dizziness is mild to acute in nature. Could be resulting from her underlying thalamic stroke. Could be resulting from poor oral intake. The patient is encouraged to have good water. Could be resulting from Norvasc. Also, we discontinued the Norvasc. She is currently on lisinopril. We will recheck her orthostatic vitals. The patient was closely monitored on the Telemetry Unit, and she remained in normal sinus rhythm. 2. Hypertension. The patient continues to have elevated blood pressure. She is noted to be on low dose lisinopril. Continue the same. 3. Paroxysmal atrial fibrillation. The patient remains in normal sinus rhythm on the Telemetry Unit. One can discontinue the telemetry. 4. Hyperlipidemia. Continue with statin. 5. We discussed with family members at bedside. 6. The patient is felt to be a risk for falls at home secondary to ongoing dizziness, and the patient is left alone at home for a couple of hours a day, so the family is willing to get her to a custodial, and we are in contact with [facility] who can take her on Sunday, so the patient might need to be staying in the hospital till Sunday for a safe discharge planning. [facility] /[id number]
[2018-01-18] MEDS: Lisinopril 5 MG Tab PO SCH (14:01)
[2018-01-18] MEDS: Rosuvastatin 10 MG Tab PO SCH (21:03)
[2018-01-18] MEDS ORDERED: Acetaminophen 325 MG Tab PO PRN (23:09)
[2018-01-19] MEDS: Lisinopril 5 MG Tab PO SCH (09:04)
[2018-01-19] MEDS: Clopidogrel 75 MG Tab PO SCH (09:04)
[2018-01-19] MEDS: Enoxaparin 40 MG/0.4 ML Syringe SUBCUT SCH (09:05)
--- NOTE | 2018-01-19 13:32 | PN ---
DATE: 01/19/2018 SUBJECTIVE: Ms. Jeanna Ruiz is an 87-year-old female with medical history significant for hypertension, hyperlipidemia, diverticulosis, history of osteoporosis, and paroxysmal atrial fibrillation, recently diagnosed with acute cerebrovascular accident resulting in left upper extremity weakness, noted to have right-sided thalamic stroke, got admitted to the hospital with complaints of dizziness. For the last 24 hours, the patient has intermittent episodes of headache which is mild in nature, intermittent. Denies any further complaints of dizziness. No complaints of chest pain. No complaints of shortness of breath. No complaints of abdominal pain. No nausea, vomiting, or diarrhea. REVIEW OF SYSTEMS: Cardiovascular, respiratory, gastrointestinal, neurology, constitutional were all evaluated. PHYSICAL EXAMINATION: Vital Signs: Temperature of 98.3, pulse of 71, blood pressure 132/56, respiratory rate of 20, saturating at 99% on room air. General Appearance: The patient is well oriented to time, place, and person. Follows commands spontaneously. Cardiovascular System: S1, S2 heard with normal intensity. No gallops. Respiratory System: Clear to auscultation bilaterally. No wheeze. No crepitations. Abdomen: Soft. Bowel sounds positive. Nontender. No rigidity. Extremities: No edema in bilateral lower extremities. Neurology: Mild weakness noted to the left upper extremity, otherwise no other gross focal neurological deficit appreciated. MEDICATIONS: Reviewed. Continue with, 1. Tylenol 650 every 4 hours as needed for pain. 2. Plavix 75 mg daily. 3. Lovenox 40 mg subcutaneous daily. 4. Lisinopril 2.5 mg daily. 5. Crestor 10 mg at bedtime. 6. Lisinopril decreased to 2.5 mg daily. DIAGNOSTIC DATA: The patient had a CT scan of the head at the time of admission, which showed chronic ischemic changes, both cerebral hemispheres, generalized atrophy, and right thalamic infarct. No new signs of intracranial mass, hydrocephalus or bleed noted. LABORATORY DATA: No new labs ordered for today. Her labs are within normal limits. ASSESSMENT: 1. Dizziness, most probably from orthostatic hypotension. Questionable autonomic dysfunction at this time secondary to the thalamic stroke. 2. Hypertension. 3. Hyperlipidemia. 4. Left upper extremity weakness secondary to recent cerebrovascular accident. PLAN: 1. Dizziness. The patient's dizziness has much improved. She continues to have orthostatic hypotension. We will decrease the lisinopril to 2.5 mg daily. We discontinued the Norvasc. The patient will be encouraged to use compression stockings to avoid any orthostatic hypotension. Unsure if this is resulting from autonomic dysfunction from thalamic stroke. We will closely follow the patient. The patient will be evaluated by physical therapy and occupational therapy secondary to frequent episodes of dizziness. She is being advised to be discharged to shelter, and the patient's family members are agreeable. aircraft worker consulted and possibly on Sunday she will be discharged to shelter. 2. Hypertension. The patient's blood pressure seems to be in acceptable range. Secondary to orthostatic hypotension, we will decrease the lisinopril to 2.5 mg daily. We will continue to closely follow. If her symptoms get worsen, then one might consider adding a small dose of midodrine to avoid any orthostatic hypotension and fall. 3. Hyperlipidemia. Continue statin. [facility] /[id number]
[2018-01-19] MEDS: Rosuvastatin 10 MG Tab PO SCH (20:39)
[2018-01-20] MEDS: Clopidogrel 75 MG Tab PO SCH (09:54)
[2018-01-20] MEDS: Lisinopril 5 MG Tab PO SCH (09:54)
[2018-01-20] MEDS: Enoxaparin 40 MG/0.4 ML Syringe SUBCUT SCH (09:55)
[2018-01-20] MEDS: Sodium Chloride 0.9% 10 ML Syringe FLUSH PRN (10:02)
[2018-01-20] MEDS ORDERED: Lactulose Soln 10 GM/15 ML 30 ML UD Cup PO PRN (12:39)
[2018-01-20] MEDS ORDERED: Bisacodyl 10 MG Supp RECTAL PRN (12:39)
--- NOTE | 2018-01-20 14:07 | PN ---
DATE: 01/20/2018 SUBJECTIVE: Ms. Jeanna Ruiz is an 87-year-old female with medical history significant for hypertension, hyperlipidemia, history of osteoporosis, paroxysmal atrial fibrillation, recently diagnosed with acute cerebrovascular accident, resulting in left upper extremity weakness resulting from a right- sided thalamic stroke, admitted with complaints of dizziness. For the last 24 hours, the patient denies any complaints of dizziness, no complaints of chest pain, no complaints of shortness of breath. She complains of constipation. She is unable to move her bowels regularly. REVIEW OF SYSTEMS: Cardiovascular, respiratory, gastrointestinal, neurology, constitutional were all evaluated. PHYSICAL EXAMINATION: Vital Signs: Temperature of 98.7, pulse of 76, blood pressure of 126/56, respiratory rate of 20, saturating at 98% on room air. General Appearance: The patient is well oriented to time, place, and person. Follows commands spontaneously. Cardiovascular System: S1, S2 heard with normal intensity. No gallops. Respiratory System: Clear to auscultation bilaterally. No wheeze. No crepitations. Abdomen: Soft. Bowel sounds positive. Nontender. No rigidity. Extremities: No edema, bilateral lower extremities. Neurology: Mild weakness to the left upper extremity. LABORATORY DATA: Reviewed. No new labs ordered for today. MEDICATIONS: Reviewed. We decreased the lisinopril to 2.5 mg daily. Continue with other medications with, 1. Plavix. 2. Crestor. ASSESSMENT: 1. Dizziness, mostly from orthostatic hypotension, improved. 2. Hypertension. 3. Hyperlipidemia. 4. Cerebrovascular accident resulting in left upper extremity weakness. 5. Recent right side thalamic stroke. PLAN: 1. Dizziness. The patient's dizziness has much improved. She was noted to have orthostatic hypotension at the time of admission. We discontinued the Norvasc. We also decreased the lisinopril to 2.5 mg daily. Her orthostatic vitals seems to be stable for now. The patient is encouraged to use compression stockings. She is also educated about taking time to stand up from bed. She is advised to sit on the edge of the bed for some time and then stand up after sometime which she understands and verbalized the same. side door worker was consulted and made arrangements for retirement placement. Possibly discharge to retirement in a.m. 2. Hypertension, improved. Continue with low dose of lisinopril at 2.5 mg daily. 3. Possible discharge to the retirement in a.m. 4. Discussed with family members at bedside. [facility] /[id number]
[2018-01-20] MEDS: Rosuvastatin 10 MG Tab PO SCH (20:39)
--- NOTE | 2018-01-21 07:41 | EKG ---
01/17/2018- MARTIN LEE - FINDINGS: A 12-lead EKG shows normal sinus rhythm with no significant ST elevation or ST depression noted on this 12-lead EKG. Nonspecific ST-T wave changes noted on lead I and lead aVL consistent with left ventricular hypertrophy. [facility] /[id number]
[2018-01-21] MEDS: Enoxaparin 40 MG/0.4 ML Syringe SUBCUT SCH (08:16)
[2018-01-21] MEDS: Lisinopril 5 MG Tab PO SCH (08:16)
[2018-01-21] MEDS: Clopidogrel 75 MG Tab PO SCH (08:16)
[2018-01-21 10:54] VITALS: BP 102/82
--- NOTE | 2018-01-21 14:08 | DISCH ---
DOS: 01/21/2018 ADMITTING DIAGNOSIS: Dizziness with presyncopal episode. DISCHARGE DIAGNOSES: 1. Dizziness with presyncopal episode secondary to orthostatic hypotension. 2. Hypertension improved with discontinuing the Norvasc and decreasing the lisinopril to 2.5 mg daily. HISTORY OF PRESENT ILLNESS: Ms. Jeanna Ruiz is an 87-year-old female with medical history significant for hypertension, hyperlipidemia, history of diverticulosis, osteoporosis, and recent diagnosis of acute cerebrovascular accident with right thalamic infarct resulting in left upper extremity weakness, was admitted to the hospital after the patient felt dizzy at home and was noted to have orthostatic hypotension. She was given IV fluids at the time of admission. She was also noted to be on Norvasc, so we discontinued the Norvasc, would decrease the lisinopril to 2.5 mg daily. Recheck of her orthostatic vitals remained stable on this admission. She is able to ambulate with the help of a walker secondary to history of frequent falls. She is not on any active anticoagulation to avoid any bleeding complication. She has been on Plavix. She remained hemodynamically stable on this admission. She is being discharged to long term for closer monitoring and for continued physical therapy and occupational therapy. She is advised to follow with primary care physician in the next 1 week of time. She is discharged to the long term in stable condition. DISCHARGE MEDICATIONS: Include, 1. Dulcolax 10 mg rectal as needed for constipation. 2. Plavix 75 mg daily. 3. Lactulose 20 mg twice a day as needed for constipation. 4. Lisinopril 2.5 mg daily. 5. Crestor 10 mg at bedtime. 6. Senokot 1 tablet twice daily. PHYSICAL EXAMINATION: On the day of discharge, Vital Signs: Temperature of 98.7, pulse of 81, blood pressure 150/50, respiratory rate of 18, saturating at 96% on room air. General Appearance: The patient is well oriented to time, place, and person. Follows commands spontaneously. Cardiovascular System: S1, S2 heard with normal intensity. No gallops. Respiratory System: Clear to auscultation bilaterally. No wheeze. No crepitations. Abdomen: Soft. Bowel sounds positive. Nontender. No rigidity. Extremities: No edema, bilateral lower extremities. Neurology: No gross focal neurological deficits. CONDITION ON ADMISSION: Poor. CONDITION ON DISCHARGE: Stable. ACTIVITY: As tolerated. Use the walker all the time to prevent falls. Discharge to half-way facility. DIET: Cardiac healthy diet. FOLLOWUP: Follow with primary care physician in next 1 week of time. TIME SPENT: Spent over 35 minutes of time in evaluating and treating this patient and making discharge plans. [facility] /[id number]
== END 2018-01-21 12:45 ==
LOC: DL.ED 10:33 → DL.MS 12:03
PROVIDERS: ADMIT Internal Medicine; ATTEND Internal Medicine
DX: I95.1 Orthostatic hypotension (principal); I10 Essential (primary) hypertension; E78.5 Hyperlipidemia, unspecified; M81.0 Age-related osteoporosis without current pathological fracture; I48.0 Paroxysmal atrial fibrillation; I69.354 Hemiplegia and hemiparesis following cerebral infarction affecting left non-dominant side; I69.334 Monoplegia of upper limb following cerebral infarction affecting left non-dominant side; N81.89 Other female genital prolapse; Z79.02 Long term (current) use of antithrombotics/antiplatelets; Z79.899 Other long term (current) drug therapy; Z87.891 Personal history of nicotine dependence
CPT/HCPCS: 36415; 70450; 71045; 80048; 80053; 80305; 81001; 83735; 84443; 84484; 85025; 93005; 93010; 99285; A9270; G0480; J1650; J7030; J7050; 96360; 96361; 96372; G0378

== ENCOUNTER 2019-01-08 11:28 | Observation (INO) | payer MEDICARE, OTHER ==
--- NOTE | 2019-01-08 11:33 | EDM.PDOC ---
ED HPI GENERAL MEDICAL PROBLEM - General Chief Complaint: Neuro Symptoms/Deficits Stated Complaint: UNKNOWN-AMBULANCE Time Seen by Provider: 01/08/19 11:28 Source of Information: Reports: Patient, EMS, Old Records, RN, RN Notes Reviewed History Limitations: Reports: No Limitations - History of Present Illness INITIAL COMMENTS - FREE TEXT/NARRATIVE: [facility] with report that she had a brief episode which pt describes began while sitting in [facility] with no preceding symptoms when she suddenly felt lightheaded, then slumped forward. Witnesses report pt put her arms up over her head and she had generalized shaking all over for a few seconds. Then pt sat upright and was immediately returned to her normal baseline. Pt does not think that she completely lost consciousness, but witnesses reported to the EMS crew that the pt did in fact have a brief LOC of a couple of seconds. The pt denies chest pain, nausea, vomiting, loss of bowel or bladder control, cough, fever, chills, visual changes, headache, or any other symptoms. EMS reported that the pt initially told them she had a slight shortness of breath, but pt denies shortness of breath. Pt reports that she had a similar episode in January of 2018 and was admitted overnight, but no cause was ever found. Onset: Today Duration: Resolved Prior to Arrival Location: Reports: Generalized Improves with: Reports: None Worsens with: Reports: None Associated Symptoms: Reports: No Other Symptoms - Related Data Allergies Allergy/AdvReac Type Severity Reaction Status Date / Time No Known Allergies Allergy Verified 01/17/18 12:55 Home Meds: Home Meds Clopidogrel [Plavix] 75 mg PO DAILY #30 tablet 01/15/18 [Rx] Rosuvastatin [Crestor] 10 mg PO BEDTIME 01/17/18 [History] Sennosides/Docusate Sodium [Senna-S] 1 tab PO BID 01/17/18 [History] Bisacodyl [Dulcolax] 10 mg RECTAL DAILY PRN #10 supp 01/21/18 [Rx] Lactulose [Cephulac] 20 gm PO BID PRN #20 cup 01/21/18 [Rx] Lisinopril [Prinivil] 2.5 mg PO DAILY #30 tablet 01/21/18 [Rx] Past Medical History HEENT History: Reports: Cataract, Impaired Vision, Other (See Below) Other HEENT History: floaters Cardiovascular History: Reports: Afib, High Cholesterol, Hypertension Respiratory History: Reports: None Gastrointestinal History: Reports: Diverticulosis, Hiatal Hernia Genitourinary History: Reports: Urinary Incontinence, Other (See Below) Other Genitourinary History: 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 -- 75 MM (2 15/16IN) 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: Other (See Below) Other MONITOR WORKER History: PELVIC RELAXATION DISORDER - WEARS PESSARY Musculoskeletal History: Reports: Osteoporosis Neurological History: Reports: CVA Psychiatric History: Reports: None Endocrine/Metabolic History: Reports: None Hematologic History: Reports: None Immunologic History: Reports: None Oncologic (Cancer) History: Reports: None Dermatologic History: Reports: None - Infectious Disease History Infectious Disease History: Reports: Mumps - Past Surgical History Head Surgeries/Procedures: Reports: None HEENT Surgical History: Reports: Cataract Surgery Cardiovascular Surgical History: Reports: None Respiratory Surgical History: Reports: None GI Surgical History: Reports: Appendectomy Neurological Surgical History: Reports: None Musculoskeletal Surgical History: Reports: Other (See Below) Other Musculoskeletal Surgeries/Procedures:: left arm Fx Social & Family History - Family History Family Medical History: Noncontributory Neurological: Reports: Alzheimers Disease - Tobacco Use Smoking Status *Q: Former Smoker Tobacco Use Within Last Twelve Months: Cigarettes - Caffeine Use Caffeine Use: Reports: Coffee, Soda, Tea - Alcohol Use Alcohol Use History: No - Recreational Drug Use Recreational Drug Use: No - Living Situation & Occupation Living situation: Reports: , Alone Occupation: Retired ED ROS GENERAL - Review of Systems Review Of Systems: ROS reveals no pertinent complaints other than HPI. ED EXAM, NEURO - Physical Exam Exam: See Below Exam Limited By: No Limitations General Appearance: Alert, WD/WN, No Apparent Distress Eye Exam: Bilateral Eye: EOMI, Normal Inspection, PERRL Ears: Normal External Exam, Hearing Grossly Normal Nose: Normal Inspection, Normal Mucosa, No Blood Throat/Mouth: Normal Inspection, Normal Lips, Normal Teeth, Normal Gums, Normal Oropharynx, Normal Voice, No Airway Compromise Head Exam: Atraumatic, Normocephalic Neck: Normal Inspection, Supple, Non-Tender, Full Range of Motion Respiratory/Chest: No Respiratory Distress, Lungs Clear, Normal Breath Sounds, No Accessory Muscle Use, Chest Non-Tender Cardiovascular: Normal Peripheral Pulses, Regular Rate, Rhythm, No Edema, No Gallop, No JVD, No Murmur GI/Abdominal: Normal Bowel Sounds, Soft, Non-Tender, No Organomegaly, No Distention, No Abnormal Bruit, No Mass (Female) Exam: Deferred Rectal (Female) Exam: Deferred Neurological: Alert, Normal Mood/Affect, Normal Dorsiflexion, CN II-XII Intact, Normal Plantar Flexion, Normal Gait, Normal Reflexes, No Motor/Sensory Deficits , Oriented x 3 Back Exam: Normal Inspection, Full Range of Motion, NT Extremities: Normal Inspection, Normal Range of Motion, Non-Tender, No Pedal Edema, Normal Capillary Refill Psychiatric: Normal Affect, Normal Mood Skin Exam: Warm, Dry, Intact, Normal Color, No Rash EKG INTERPRETATION EKG Date: 01/08/19 Time: 11:49 Rhythm: Other (SR) Rate (Beats/Min): 84 [place]: Normal P-Wave: Present QRS: Other (borderline inferior P waves) ST-T: Normal QT: Normal Comparison: No Change Course - Vital Signs Last Recorded V/S: Last Vital Signs Temp 37.0 C 01/08/19 11:44 Pulse 92 01/08/19 11:44 Resp 19 01/08/19 11:44 BP 130/58 L 01/08/19 11:44 Pulse Ox 98 01/08/19 11:44 Orthostatic Blood Pressure [ 118/60 Standing] Orthostatic Blood Pressure [ 137/45 Sitting] Orthostatic Blood Pressure [ 137/55 Supine] No orthostatic dizziness. - Orders/Labs/Meds Orders: Active Orders 24 hr Category Date Time Status Blood Glucose Check, Bedside [RC] ONETIME Care 01/08/19 11:31 Active EKG 12 Lead [EKG Documentation Completion] [RC] STAT Care 01/08/19 11:30 Active Orthostatic Vital Signs [RC] ASDIRECTED Care 01/08/19 11:56 Active Peripheral IV Care [RC] . DIRECTED Care 01/08/19 11:31 Active CULTURE BLOOD [BC] Stat Lab 01/08/19 11:31 Ordered CULTURE BLOOD [BC] Stat Lab 01/08/19 11:31 Ordered CULTURE URINE [RM] Stat Lab 01/08/19 11:31 Received LACTIC ACID [CHEM] Stat Lab 01/08/19 11:31 Ordered Sodium Chloride 0.9% [Saline Flush] Med 01/08/19 11:29 Active 10 ml FLUSH ASDIRECTED PRN cefTRIAXone [Rocephin] 2 gm Med 01/08/19 12:44 Ordered Sodium Chloride 0.9% [Normal Saline] 100 ml IV ONETIME Blood Culture x2 Reflex Set [OM.PC] Stat Oth 01/08/19 11:30 Ordered Peripheral IV Insertion Adult [OM.PC] Stat Ot 01/08/19 11:30 Ordered Medication Orders Ceftriaxone Sodium 2 gm/ (Sodium Chloride) 100 mls @ 200 mls/hr IV ONETIME ONE Stop: 01/08/19 13:13 Sodium Chloride (Saline Flush) 10 ml FLUSH ASDIRECTED PRN PRN Reason: Keep Vein Open Last Admin: 01/08/19 11:46 Dose: 10 ml Labs: Laboratory Tests 01/08/19 01/08/19 01/08/19 Range/Units 11:31 11:35 11:35 WBC 7.2 (5.0-10.0) 10^3/uL RBC 4.64 (4.2-5.4) 10^6/uL Hgb 14.4 (12.0-16.0) g/dL Hct 44.1 (37.0-47.0) % MCV 95.0 (80-100) fL MCH 31.0 (27.0-34.0) pg MCHC 32.7 L (33.0-35.0) g/dL Plt Count 169 (150-450) 10^3/uL Neut % (Auto) 57.3 (42.2-75.2) % Lymph % (Auto) 33.8 (20.5-50.1) % [place] % (Auto) 7.6 (2-8) % Eos % (Auto) 1.0 (1.0-3.0) % Baso % (Auto) 0.3 (0.0-1.0) % PT 9.8 (9.0-12.0) SEC INR 1.0 (0.9-1.2) APTT 26.3 (22.0-34.0) SEC Sodium (135-145) mmol/L Potassium (3.6-5.0) mmol/L Chloride (101-111) mmol/L Carbon Dioxide (21.0-31.0) mmol/L Anion Gap BUN (7-18) mg/dL Creatinine (0.6-1.3) mg/dL Est Cr Clr Drug Dosing mL/min Estimated GFR (MDRD) BUN/Creatinine Ratio Glucose (74-105) mg/dL Calcium (8.4-10.2) mg/dl Total Bilirubin (0.2-1.0) mg/dL AST (10-42) IU/L ALT (10-60) IU/L Alkaline Phosphatase (42-121) IU/L Creatine Kinase (26-174) IU/L Troponin I (0.00-0.02) ng/ml B-Natriuretic Peptide (0-100) pg/ml Total Protein (6.7-8.2) g/dl Albumin (3.2-5.5) g/dl Globulin Albumin/Globulin Ratio Urine Color Yellow (YELLOW) Urine Appearance Slightly cloudy (CLEAR) Urine pH 5.5 (5.0-9.0) Ur Specific [place] 1.020 (1.005-1.030) Urine Protein 30 H (NEGATIVE) Urine Glucose (UA) Negative (NEGATIVE) Urine Ketones Negative (NEGATIVE) Urine Occult Blood Trace-intact H (NEGATIVE) Urine Nitrite Negative (NEGATIVE) Urine Bilirubin Negative (NEGATIVE) Urine Urobilinogen 0.2 (0.2-1.0) mg/dL Ur Leukocyte Esterase Moderate H (NEGATIVE) Urine RBC 5-10 H /HPF Urine WBC >100 H (0-5/HPF) /HPF Ur Epithelial Cells Moderate H /HPF Urine Bacteria Few (0-FEW/HPF) /HPF Hyaline Casts Few H /LPF Fine Granular Casts Few H (0/LPF) /LPF 01/08/19 Range/Units 11:35 WBC (5.0-10.0) 10^3/uL RBC (4.2-5.4) 10^6/uL Hgb (12.0-16.0) g/dL Hct (37.0-47.0) % MCV (80-100) fL MCH (27.0-34.0) pg MCHC (33.0-35.0) g/dL Plt Count (150-450) 10^3/uL Neut % (Auto) (42.2-75.2) % Lymph % (Auto) (20.5-50.1) % [place] % (Auto) (2-8) % Eos % (Auto) (1.0-3.0) % Baso % (Auto) (0.0-1.0) % PT (9.0-12.0) SEC INR (0.9-1.2) APTT (22.0-34.0) SEC Sodium 137 (135-145) mmol/L Potassium 4.4 (3.6-5.0) mmol/L Chloride 103 (101-111) mmol/L Carbon Dioxide 22.0 (21.0-31.0) mmol/L Anion Gap 16.4 BUN 30 H (7-18) mg/dL Creatinine 1.0 (0.6-1.3) mg/dL Est Cr Clr Drug Dosing 34.23 mL/min Estimated GFR (MDRD) 52 BUN/Creatinine Ratio 30.00 Glucose 112 H (74-105) mg/dL Calcium 9.7 (8.4-10.2) mg/dl Total Bilirubin 0.8 (0.2-1.0) mg/dL AST 24 (10-42) IU/L ALT 18 (10-60) IU/L Alkaline Phosphatase 67 (42-121) IU/L Creatine Kinase 39 (26-174) IU/L Troponin I < 0.02 (0.00-0.02) ng/ml B-Natriuretic Peptide 61 (0-100) pg/ml Total Protein 7.1 (6.7-8.2) g/dl Albumin 4.3 (3.2-5.5) g/dl Globulin 2.8 Albumin/Globulin Ratio 1.54 Urine Color (YELLOW) Urine Appearance (CLEAR) Urine pH (5.0-9.0) Ur Specific [place] (1.005-1.030) Urine Protein (NEGATIVE) Urine Glucose (UA) (NEGATIVE) Urine Ketones (NEGATIVE) Urine Occult Blood (NEGATIVE) Urine Nitrite (NEGATIVE) Urine Bilirubin (NEGATIVE) Urine Urobilinogen (0.2-1.0) mg/dL Ur Leukocyte Esterase (NEGATIVE) Urine RBC /HPF Urine WBC (0-5/HPF) /HPF Ur Epithelial Cells /HPF Urine Bacteria (0-FEW/HPF) /HPF Hyaline Casts /LPF Fine Granular Casts (0/LPF) /LPF Meds: Medications Generic Name Dose Route Start Last Admin Trade Name Freq PRN Reason Stop Dose Admin Ceftriaxone Sodium 2 gm/ 100 mls @ 200 mls/hr 01/08/19 12:44 Sodium Chloride IV 01/08/19 13:13 ONETIME ONE Sodium Chloride 10 ml 01/08/19 11:29 01/08/19 11:46 Saline Flush FLUSH 10 ml ASDIRECTED PRN Administration Keep Vein Open - Radiology Interpretation Free Text/Narrative:: CT Head: Chronic multi-infarct disease unchanged in comparison to 01/17/18 CT. No acute I.C. hemorrhage or any other changes per Rad. report. Departure - Departure Time of Disposition: 12:50 (admitted to Dr. Gomez) Disposition: Refer to Observation Condition: Good, Undetermined Clinical Impression: Bacteriuria Syncope Qualifiers: Syncope type: vasovagal syncope Qualified Code(s): R55 - Syncope and collapse - Discharge Information *PRESCRIPTION DRUG MONITORING PROGRAM REVIEWED*: No *COPY OF PRESCRIPTION DRUG MONITORING REPORT IN PATIENT CANDIDO: No Forms: ED Department Discharge - My Orders Last 24 Hours: My Active Orders 01/08/19 11:29 Sodium Chloride 0.9% [Saline Flush] 10 ml FLUSH ASDIRECTED PRN 01/08/19 11:30 EKG 12 Lead [EKG Documentation Completion] [RC] STAT Blood Culture x2 Reflex Set [OM.PC] Stat Peripheral IV Insertion Adult [OM.PC] Stat 01/08/19 11:31 Blood Glucose Check, Bedside [RC] ONETIME Peripheral IV Care [RC] . DIRECTED CULTURE BLOOD [BC] Stat CULTURE BLOOD [BC] Stat CULTURE URINE [RM] Stat LACTIC ACID [CHEM] Stat 01/08/19 11:56 Orthostatic Vital Signs [RC] ASDIRECTED 01/08/19 12:44 cefTRIAXone [Rocephin] 2 gm Sodium Chloride 0.9% [Normal Saline] 100 ml IV ONETIME - Assessment/Plan Last 24 Hours: My Active Orders 01/08/19 11:29 Sodium Chloride 0.9% [Saline Flush] 10 ml FLUSH ASDIRECTED PRN 01/08/19 11:30 EKG 12 Lead [EKG Documentation Completion] [RC] STAT Blood Culture x2 Reflex Set [OM.PC] Stat Peripheral IV Insertion Adult [OM.PC] Stat 01/08/19 11:31 Blood Glucose Check, Bedside [RC] ONETIME Peripheral IV Care [RC] . DIRECTED CULTURE BLOOD [BC] Stat CULTURE BLOOD [BC] Stat CULTURE URINE [RM] Stat LACTIC ACID [CHEM] Stat 01/08/19 11:56 Orthostatic Vital Signs [RC] ASDIRECTED 01/08/19 12:44 cefTRIAXone [Rocephin] 2 gm Sodium Chloride 0.9% [Normal Saline] 100 ml IV ONETIME
[2019-01-08] MEDS: Sodium Chloride 0.9% 10 ML Syringe FLUSH PRN ×2 (11:46→20:40)
--- NOTE | 2019-01-08 11:53 | CT ---
Clinical history: 88-year-old intensive female with syncopal episode. Possible "stroke". Rule out intracranial patient reported have "chronic ischemic changes, generalized atrophy and right thalamic infarct" on CT scan 17 Jan 2018. Scan technique: Volume acquisition of data emergency unenhanced CT scan of the head and brain obtained while the patient was lying supine on the Siemens multi slice scanner [place], [place]. All data archived in the PACS system for storage, reformatting axial/sagittal/coronal planes and study friends bone/brain windows). Interpretation: 1. Asymmetric large ischemic infarct basal ganglia (thalamus) deep in the right cerebral hemisphere unchanged in location, size and configuration when compared directly to images from 17 Jan 2018. 2. Atrophy pattern symmetric and consistent with age. Underlying mirror-image normal ventricular system. 3. Multi infarcts ischemic changes scattered throughout the periventricular white matter of both hemispheres noted previously. 4. No new supratentorial or posterior fossa mass lesion. No sign of acute intracerebral/intraventricular/subarachnoid bleed. 5. No hydrocephalus. Physiologic midline pineal, symmetric choroid plexus and midline falcine calcifications. 6. Uniformly thick bony calvarium without sign of skull fracture, underlying brain contusion or abnormal extracerebral/intracranial epidural or subdural hematoma. Symmetric clear pneumatization of the mastoid and paranasal sinuses. 7. Cerebellar atrophy. Brainstem unremarkable and unchanged. CONCLUSION: Multi-infarct (ischemic) disease as noted one year ago on 17 Jan 2018 exam. No new signs of intracranial mass lesion, hydrocephalus or bleed.
--- NOTE | 2019-01-08 11:54 | CR ---
Clinical history: 88-year-old female syncope and shortness of breath. Interpretation: Upright AP portable chest film rotated but otherwise unchanged since 17 Jan 2018 exam. Normal cardiac silhouette and left-sided aortic arch (external director of cardiac cath lab leads). No cephalization of vascular flow, signs of alveolar edema or dependent new pleural fluid accumulation. No new lung mass, hilar lymphadenopathy or focal lobar pneumonia. No atelectasis/collapse. No pneumothorax. CONCLUSION: No acute new cardiopulmonary abnormality.
[2019-01-08 12:02] LABS: ANION GAP 16.4; CHLORIDE,CL 103 mmol/L (101-111); SODIUM,NA 137 mmol/L (135-145)
[2019-01-08] MEDS ORDERED: cefTRIAXone 2 GM in Sodium Chloride 0.9% 100 ML IV ONE (12:44)
[2019-01-08] MEDS ORDERED: Sodium Chloride 0.9% 10 ML Syringe FLUSH PRN ×3 (15:44→15:45)
[2019-01-08] MEDS ORDERED: Lactulose Soln 10 GM/15 ML 30 ML UD Cup PO PRN (15:48)
--- NOTE | 2019-01-08 16:42 | PCM.HP ---
H&P History of Present Illness - General Date of Service: 01/08/19 Admit Problem/Dx: Admission Diagnosis/Problem Admission Diagnosis/Problem Back pain Source of Information: Patient History Limitations: Reports: No Limitations - History of Present Illness Initial Comments - Free Text/Narative: 88 yo F with PMH of CAD, HTN who p/w syncopal episode. Patient was at [facility] for at around 10.30 am this morning when she suddenly blacked out while sitting down. Symptom lasted for a very short time, there was no post-ictal phase, no foaming at the mouth, no tongue-biting, no incontinence of urine or feces. She had no chest pain, no shortness of breath, no palpitations, no nausea or vomiting. Had a similar episode a year ago. In the ED, Troponin was negative, unremarkable EKG, CT head negative for acute bleed or infarct. - Related Data Allergies/Adverse Reactions: Allergies Allergy/AdvReac Type Severity Reaction Status Date / Time No Known Allergies Allergy Verified 01/17/18 12:55 Home Medications: Home Meds Clopidogrel [Plavix] 75 mg PO DAILY #30 tablet 01/15/18 [Rx] Rosuvastatin [Crestor] 10 mg PO BEDTIME 01/17/18 [History] Sennosides/Docusate Sodium [Senna-S] 1 tab PO BID 01/17/18 [History] Lactulose [Cephulac] 20 gm PO BID PRN #20 cup 01/21/18 [Rx] Lisinopril [Prinivil] 2.5 mg PO DAILY #30 tablet 01/21/18 [Rx] Aspirin [Halfprin] 81 mg PO DAILY 01/08/19 [History] Past Medical History HEENT History: Reports: Cataract, Impaired Vision, Other (See Below) Other HEENT History: floaters- no longer) Cardiovascular History: Reports: Afib, High Cholesterol, Hypertension, Syncope Other Cardiovascular History: sycope? 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 Psychiatric History: Reports: None, Anxiety Endocrine/Metabolic History: Reports: None Hematologic History: Reports: None Immunologic History: Reports: None Oncologic (Cancer) History: Reports: None Dermatologic History: Reports: None - Infectious Disease History Infectious Disease History: Reports: None - Past Surgical History Head Surgeries/Procedures: Reports: None HEENT Surgical History: Reports: Cataract Surgery Cardiovascular Surgical History: Reports: None Respiratory Surgical History: Reports: None GI Surgical History: Reports: Appendectomy, Colonoscopy Neurological Surgical History: Reports: None Musculoskeletal Surgical History: Reports: Other (See Below) Other Musculoskeletal Surgeries/Procedures:: left arm Fx Social & Family History - Family History Family Medical History: Noncontributory Neurological: Reports: Alzheimers Disease - Tobacco Use Smoking Status *Q: Never Smoker Second Hand Smoke Exposure: No - Caffeine Use Caffeine Use: Reports: Coffee - Recreational Drug Use Recreational Drug Use: No - Living Situation & Occupation Living situation: Reports: , Alone Occupation: Retired H&P Review of Systems - Review of Systems: Review Of Systems: ROS reveals no pertinent complaints other than HPI. Exam - Exam Exam: See Below - Vital Signs Vital Signs: Last Vital Signs Temp 36.4 C 01/08/19 13:07 Pulse 79 01/08/19 13:07 Resp 16 01/08/19 13:07 BP 148/53 H 01/08/19 13:07 Pulse Ox 100 01/08/19 13:07 Orthostatic Blood Pressure [ 118/60 Standing] Orthostatic Blood Pressure [ 137/45 Sitting] Orthostatic Blood Pressure [ 137/55 Supine] Weight: 58.241 kg - Exam General: Alert, Oriented HEENT: Conjunctiva Clear Neck: Supple, Trachea Midline Lungs: Clear to Auscultation, Normal Respiratory Effort Cardiovascular: Regular Rate, Regular Rhythm GI/Abdominal Exam: Normal Bowel Sounds, Soft, Non-Tender Extremities: Normal Inspection, Normal Range of Motion, Non-Tender, No Pedal Edema - Patient Data Lab Results Last 24 hrs: Laboratory Results - last 24 hr 01/08/19 01/08/19 01/08/19 Range/Units 11:31 11:35 11:35 WBC 7.2 (5.0-10.0) 10^3/uL RBC 4.64 (4.2-5.4) 10^6/uL Hgb 14.4 (12.0-16.0) g/dL Hct 44.1 (37.0-47.0) % MCV 95.0 (80-100) fL MCH 31.0 (27.0-34.0) pg MCHC 32.7 L (33.0-35.0) g/dL Plt Count 169 (150-450) 10^3/uL Neut % (Auto) 57.3 (42.2-75.2) % Lymph % (Auto) 33.8 (20.5-50.1) % [place] % (Auto) 7.6 (2-8) % Eos % (Auto) 1.0 (1.0-3.0) % Baso % (Auto) 0.3 (0.0-1.0) % PT 9.8 (9.0-12.0) SEC INR 1.0 (0.9-1.2) APTT 26.3 (22.0-34.0) SEC Sodium (135-145) mmol/L Potassium (3.6-5.0) mmol/L Chloride (101-111) mmol/L Carbon Dioxide (21.0-31.0) mmol/L Anion Gap BUN (7-18) mg/dL Creatinine (0.6-1.3) mg/dL Est Cr Clr Drug Dosing mL/min Estimated GFR (MDRD) BUN/Creatinine Ratio Glucose (74-105) mg/dL Lactic Acid (0.5-2.2) mmol/L Calcium (8.4-10.2) mg/dl Total Bilirubin (0.2-1.0) mg/dL AST (10-42) IU/L ALT (10-60) IU/L Alkaline Phosphatase (42-121) IU/L Creatine Kinase (26-174) IU/L Troponin I (0.00-0.02) ng/ml B-Natriuretic Peptide (0-100) pg/ml Total Protein (6.7-8.2) g/dl Albumin (3.2-5.5) g/dl Globulin Albumin/Globulin Ratio Urine Color Yellow (YELLOW) Urine Appearance Slightly cloudy (CLEAR) Urine pH 5.5 (5.0-9.0) Ur Specific [place] 1.020 (1.005-1.030) Urine Protein 30 H (NEGATIVE) Urine Glucose (UA) Negative (NEGATIVE) Urine Ketones Negative (NEGATIVE) Urine Occult Blood Trace-intact H (NEGATIVE) Urine Nitrite Negative (NEGATIVE) Urine Bilirubin Negative (NEGATIVE) Urine Urobilinogen 0.2 (0.2-1.0) mg/dL Ur Leukocyte Esterase Moderate H (NEGATIVE) Urine RBC 5-10 H /HPF Urine WBC >100 H (0-5/HPF) /HPF Ur Epithelial Cells Moderate H /HPF Urine Bacteria Few (0-FEW/HPF) /HPF Hyaline Casts Few H /LPF Fine Granular Casts Few H (0/LPF) /LPF 01/08/19 01/08/19 Range/Units 11:35 12:29 WBC (5.0-10.0) 10^3/uL RBC (4.2-5.4) 10^6/uL Hgb (12.0-16.0) g/dL Hct (37.0-47.0) % MCV (80-100) fL MCH (27.0-34.0) pg MCHC (33.0-35.0) g/dL Plt Count (150-450) 10^3/uL Neut % (Auto) (42.2-75.2) % Lymph % (Auto) (20.5-50.1) % [place] % (Auto) (2-8) % Eos % (Auto) (1.0-3.0) % Baso % (Auto) (0.0-1.0) % PT (9.0-12.0) SEC INR (0.9-1.2) APTT (22.0-34.0) SEC Sodium 137 (135-145) mmol/L Potassium 4.4 (3.6-5.0) mmol/L Chloride 103 (101-111) mmol/L Carbon Dioxide 22.0 (21.0-31.0) mmol/L Anion Gap 16.4 BUN 30 H (7-18) mg/dL Creatinine 1.0 (0.6-1.3) mg/dL Est Cr Clr Drug Dosing 34.23 mL/min Estimated GFR (MDRD) 52 BUN/Creatinine Ratio 30.00 Glucose 112 H (74-105) mg/dL Lactic Acid 1.0 (0.5-2.2) mmol/L Calcium 9.7 (8.4-10.2) mg/dl Total Bilirubin 0.8 (0.2-1.0) mg/dL AST 24 (10-42) IU/L ALT 18 (10-60) IU/L Alkaline Phosphatase 67 (42-121) IU/L Creatine Kinase 39 (26-174) IU/L Troponin I < 0.02 (0.00-0.02) ng/ml B-Natriuretic Peptide 61 (0-100) pg/ml Total Protein 7.1 (6.7-8.2) g/dl Albumin 4.3 (3.2-5.5) g/dl Globulin 2.8 Albumin/Globulin Ratio 1.54 Urine Color (YELLOW) Urine Appearance (CLEAR) Urine pH (5.0-9.0) Ur Specific [place] (1.005-1.030) Urine Protein (NEGATIVE) Urine Glucose (UA) (NEGATIVE) Urine Ketones (NEGATIVE) Urine Occult Blood (NEGATIVE) Urine Nitrite (NEGATIVE) Urine Bilirubin (NEGATIVE) Urine Urobilinogen (0.2-1.0) mg/dL Ur Leukocyte Esterase (NEGATIVE) Urine RBC /HPF Urine WBC (0-5/HPF) /HPF Ur Epithelial Cells /HPF Urine Bacteria (0-FEW/HPF) /HPF Hyaline Casts /LPF Fine Granular Casts (0/LPF) /LPF Result Diagrams: 01/08/19 11:35 01/08/19 11:35 Problem List Initiated/Reviewed/Updated: Yes Orders Last 24hrs: Active Orders 24 hr Category Date Time Status Patient Status [ADT] Routine ADT 01/08/19 15:44 Active Ambulate [RC] ASDIRECTED Care 01/08/19 15:44 Active Cardiac Monitoring [RC] . DIRECTED Care 01/08/19 15:49 Active Height and Weight [RC] DAILY Care 01/08/19 15:44 Active Orthostatic Vital Signs [RC] ASDIRECTED Care 01/08/19 11:56 Active Oxygen Therapy [RC] PRN Care 01/08/19 15:44 Active Peripheral IV Care [RC] . DIRECTED Care 01/08/19 11:31 Active Peripheral IV Care [RC] . DIRECTED Care 01/08/19 15:44 Active Up With Assistance [RC] ASDIRECTED Care 01/08/19 15:44 Active VTE/DVT Education [RC] PER UNIT ROUTINE Care 01/08/19 15:44 Active Vital Signs [RC] Q4H Care 01/08/19 15:44 Active OT Evaluation and Treatment [CONS] Routine Cons 01/08/19 15:45 Active PT Evaluation and Treatment [CONS] Routine Cons 01/08/19 15:45 Active Regular Diet [DIET] Diet 01/08/19 Dinner Active CULTURE BLOOD [BC] Stat Lab 01/08/19 12:29 Received CULTURE BLOOD [BC] Stat Lab 01/08/19 12:34 Received CULTURE URINE [RM] Stat Lab 01/08/19 11:31 Received Aspirin [Halfprin] Med 01/09/19 09:00 Active 81 mg PO DAILY Clopidogrel [Plavix] Med 01/09/19 09:00 Active 75 mg PO DAILY Docusate Sodium/Sennosides [Senna Plus] Med 01/08/19 21:00 Active 1 tab PO BID Heparin Sodium Med 01/08/19 21:00 Active 5,000 units SUBCUT Q12HR Lactulose [Cephulac] Med 01/08/19 15:48 Active 20 gm PO BID PRN Lisinopril [Prinivil] Med 01/09/19 09:00 Active 2.5 mg PO DAILY Rosuvastatin [Crestor] Med 01/08/19 21:00 Active 10 mg PO BEDTIME Sodium Chloride 0.9% [Saline Flush] Med 01/08/19 11:29 Active 10 ml FLUSH ASDIRECTED PRN Sodium Chloride 0.9% [Saline Flush] Med 01/08/19 15:44 Active 10 ml FLUSH ASDIRECTED PRN Blood Culture x2 Reflex Set [OM.PC] Stat Oth 01/08/19 11:30 Ordered Peripheral IV Insertion Adult [OM.PC] Routine Oth 01/08/19 15:44 Ordered Peripheral IV Insertion Adult [OM.PC] Stat Oth 01/08/19 11:30 Ordered Saline Lock Insert [OM.PC] Routine Oth 01/08/19 15:44 Ordered Code Status [Resuscitation Status] Routine Resus Stat 01/08/19 15:48 Ordered Medication Orders Aspirin (Halfprin) 81 mg PO DAILY [facility] Clopidogrel Bisulfate (Plavix) 75 mg PO DAILY [facility] Heparin Sodium (Porcine) (Heparin Sodium) 5,000 units SUBCUT Q12HR [facility] Lactulose (Cephulac) 20 gm PO BID PRN PRN Reason: Constipation Lisinopril (Prinivil) 2.5 mg PO DAILY [facility] Rosuvastatin Calcium (Crestor) 10 mg PO BEDTIME [facility] Senna/Docusate Sodium (Senna Plus) 1 tab PO BID [facility] Sodium Chloride (Saline Flush) 10 ml FLUSH ASDIRECTED PRN PRN Reason: Keep Vein Open Last Admin: 01/08/19 11:46 Dose: 10 ml Sodium Chloride (Saline Flush) 10 ml FLUSH ASDIRECTED PRN PRN Reason: Keep Vein Open Assessment/Plan Comment:: #Syncope likely cardiac origin monitor on telemetry overnight. check troponins, serial EKG follow up with [facility] for Holter/Zio patch on discharge PT/OT #Hx of CVA continue aspirin, plavix, statin #HTN continue home BP meds #DVT ppx SC heparin
--- NOTE | 2019-01-08 16:50 | PCM.SN ---
- Free Text/Narrative Note: Urinalysis results noted Patient has no urinary symptoms (no increased freq, no dysuria, no hematuria), no fever Asymptomatic bacteruria. Will hold off on antibiotics for now per current IDSA guideline. https://www.idsociety.org/practice-guideline/asymptomatic-bacteriuria/
[2019-01-08] MEDS: Heparin Sodium 5,000 Units/ML Vial SUBCUT SCH (20:38)
[2019-01-08] MEDS ORDERED: Rosuvastatin 10 MG Tab PO SCH (21:00)
[2019-01-09] MEDS: Heparin Sodium 5,000 Units/ML Vial SUBCUT SCH (08:14)
[2019-01-09 08:20] VITALS: BP 141/59
[2019-01-09] MEDS ORDERED: Lisinopril 5 MG Tab PO SCH (09:00)
[2019-01-09] MEDS ORDERED: Aspirin 81 MG Tab.EC PO SCH (09:00)
[2019-01-09] MEDS ORDERED: Clopidogrel 75 MG Tab PO SCH (09:00)
--- NOTE | 2019-01-09 10:58 | PCM.DCSUM1 ---
Discharge Summary - Hospital Course Free Text/Narrative:: 88 yo F with PMH of CAD, HTN prior CVA who p/w syncopal episode. [facility] around [facility].30 am the day of admission when she suddenly blacked out while sitting down for approximately 30 seconds. there was no post- ictal phase, no foaming at the mouth, no tongue-biting, no incontinence of urine or feces. She had slight chest pain, no shortness of breath, no palpitations, no nausea or vomiting. Had a similar episode a year ago. In the ED, Troponin was negative, unremarkable EKG, CT head negative for acute bleed or infarct. UA was positive the patient did not have any urinary symptoms.of note, patient had similar episode in the past that also lasted a few seconds. No episodes in the hospital. Telemetry negative. She'll be discharged on Cipro for UTI, and she'll follow-up with PCP for Holter/Zio patch monitoring - Discharge Data Discharge Date: 01/09/19 Discharge Disposition: Home, Self-Care 01 Condition: Good - Patient Summary/Data Consults: Consultations 01/08/19 15:45 OT Evaluation and Treatment [CONS] Routine PT Evaluation and Treatment [CONS] Routine - Discharge Plan *PRESCRIPTION DRUG MONITORING PROGRAM REVIEWED*: No *COPY OF PRESCRIPTION DRUG MONITORING REPORT IN PATIENT CANDIDO: No Prescriptions/Med Rec: Ciprofloxacin/Ciprofloxa HCl [Ciprofloxacin ER] 500 mg PO DAILY #3 tbmp.24hr Home Medications: Home Meds Clopidogrel [Plavix] 75 mg PO DAILY #30 tablet 01/15/18 [Rx] Rosuvastatin [Crestor] 10 mg PO BEDTIME 01/17/18 [History] Sennosides/Docusate Sodium [Senna-S] 1 tab PO BID 01/17/18 [History] Lactulose [Cephulac] 20 gm PO BID PRN #20 cup 01/21/18 [Rx] Lisinopril [Prinivil] 2.5 mg PO DAILY #30 tablet 01/21/18 [Rx] Aspirin [Halfprin] 81 mg PO DAILY 01/08/19 [History] Ciprofloxacin/Ciprofloxa HCl [Ciprofloxacin ER] 500 mg PO DAILY #3 tbmp.24hr 10/29 [Rx] Referrals: Omega Clement MD [Primary Care Provider] - - Discharge Summary/Plan Comment DC Time >30 min.: Yes - General Info Date of Service: 01/09/19 Admission Dx/Problem (Free Text: Admission Diagnosis/Problem Admission Diagnosis/Problem possible syncope - Review of Systems General: Reports: No Symptoms HEENT: Reports: No Symptoms Pulmonary: Reports: No Symptoms Cardiovascular: Reports: No Symptoms Gastrointestinal: Reports: No Symptoms Genitourinary: Reports: No Symptoms Musculoskeletal: Reports: No Symptoms Skin: Reports: No Symptoms Neurological: Reports: No Symptoms Psychiatric: Reports: No Symptoms - Patient Data Vitals - Most Recent: Last Vital Signs Temp 36.6 C 01/09/19 08:41 Pulse 67 01/09/19 08:41 Resp 16 01/09/19 08:41 BP 141/59 H 01/09/19 08:41 Pulse Ox 96 01/09/19 08:41 Orthostatic Blood Pressure [ 118/60 Standing] Orthostatic Blood Pressure [ 137/45 Sitting] Orthostatic Blood Pressure [ 137/55 Supine] Weight - Most Recent: 57.062 kg I&O - Last 24 hours: Intake & Output 01/08/19 01/09/19 01/09/19 22:59 06:59 14:59 Intake Total 760 275 Output Total 500 400 Balance 260 -400 275 Lab Results - Last 24 hrs: Laboratory Results - last 24 hr 01/08/19 01/08/19 01/08/19 Range/Units 11:31 11:35 11:35 WBC 7.2 (5.0-10.0) 10^3/uL RBC 4.64 (4.2-5.4) 10^6/uL Hgb 14.4 (12.0-16.0) g/dL Hct 44.1 (37.0-47.0) % MCV 95.0 (80-100) fL MCH 31.0 (27.0-34.0) pg MCHC 32.7 L (33.0-35.0) g/dL Plt Count 169 (150-450) 10^3/uL Neut % (Auto) 57.3 (42.2-75.2) % Lymph % (Auto) 33.8 (20.5-50.1) % [place] % (Auto) 7.6 (2-8) % Eos % (Auto) 1.0 (1.0-3.0) % Baso % (Auto) 0.3 (0.0-1.0) % PT 9.8 (9.0-12.0) SEC INR 1.0 (0.9-1.2) APTT 26.3 (22.0-34.0) SEC Sodium (135-145) mmol/L Potassium (3.6-5.0) mmol/L Chloride (101-111) mmol/L Carbon Dioxide (21.0-31.0) mmol/L Anion Gap BUN (7-18) mg/dL Creatinine (0.6-1.3) mg/dL Est Cr Clr Drug Dosing mL/min Estimated GFR (MDRD) BUN/Creatinine Ratio Glucose (74-105) mg/dL Lactic Acid (0.5-2.2) mmol/L Calcium (8.4-10.2) mg/dl Total Bilirubin (0.2-1.0) mg/dL AST (10-42) IU/L ALT (10-60) IU/L Alkaline Phosphatase (42-121) IU/L Creatine Kinase (26-174) IU/L Troponin I (0.00-0.02) ng/ml B-Natriuretic Peptide (0-100) pg/ml Total Protein (6.7-8.2) g/dl Albumin (3.2-5.5) g/dl Globulin Albumin/Globulin Ratio Urine Color Yellow (YELLOW) Urine Appearance Slightly cloudy (CLEAR) Urine pH 5.5 (5.0-9.0) Ur Specific [place] 1.020 (1.005-1.030) Urine Protein 30 H (NEGATIVE) Urine Glucose (UA) Negative (NEGATIVE) Urine Ketones Negative (NEGATIVE) Urine Occult Blood Trace-intact H (NEGATIVE) Urine Nitrite Negative (NEGATIVE) Urine Bilirubin Negative (NEGATIVE) Urine Urobilinogen 0.2 (0.2-1.0) mg/dL Ur Leukocyte Esterase Moderate H (NEGATIVE) Urine RBC 5-10 H /HPF Urine WBC >100 H (0-5/HPF) /HPF Ur Epithelial Cells Moderate H /HPF Urine Bacteria Few (0-FEW/HPF) /HPF Hyaline Casts Few H /LPF Fine Granular Casts Few H (0/LPF) /LPF 01/08/19 01/08/19 01/09/19 Range/Units 11:35 12:29 06:15 WBC (5.0-10.0) 10^3/uL RBC (4.2-5.4) 10^6/uL Hgb (12.0-16.0) g/dL Hct (37.0-47.0) % MCV (80-100) fL MCH (27.0-34.0) pg MCHC (33.0-35.0) g/dL Plt Count (150-450) 10^3/uL Neut % (Auto) (42.2-75.2) % Lymph % (Auto) (20.5-50.1) % [place] % (Auto) (2-8) % Eos % (Auto) (1.0-3.0) % Baso % (Auto) (0.0-1.0) % PT (9.0-12.0) SEC INR (0.9-1.2) APTT (22.0-34.0) SEC Sodium 137 (135-145) mmol/L Potassium 4.4 (3.6-5.0) mmol/L Chloride 103 (101-111) mmol/L Carbon Dioxide 22.0 (21.0-31.0) mmol/L Anion Gap 16.4 BUN 30 H (7-18) mg/dL Creatinine 1.0 (0.6-1.3) mg/dL Est Cr Clr Drug Dosing 34.23 mL/min Estimated GFR (MDRD) 52 BUN/Creatinine Ratio 30.00 Glucose 112 H (74-105) mg/dL Lactic Acid 1.0 (0.5-2.2) mmol/L Calcium 9.7 (8.4-10.2) mg/dl Total Bilirubin 0.8 (0.2-1.0) mg/dL AST 24 (10-42) IU/L ALT 18 (10-60) IU/L Alkaline Phosphatase 67 (42-121) IU/L Creatine Kinase 39 (26-174) IU/L Troponin I < 0.02 < 0.02 (0.00-0.02) ng/ml B-Natriuretic Peptide 61 (0-100) pg/ml Total Protein 7.1 (6.7-8.2) g/dl Albumin 4.3 (3.2-5.5) g/dl Globulin 2.8 Albumin/Globulin Ratio 1.54 Urine Color (YELLOW) Urine Appearance (CLEAR) Urine pH (5.0-9.0) Ur Specific [place] (1.005-1.030) Urine Protein (NEGATIVE) Urine Glucose (UA) (NEGATIVE) Urine Ketones (NEGATIVE) Urine Occult Blood (NEGATIVE) Urine Nitrite (NEGATIVE) Urine Bilirubin (NEGATIVE) Urine Urobilinogen (0.2-1.0) mg/dL Ur Leukocyte Esterase (NEGATIVE) Urine RBC /HPF Urine WBC (0-5/HPF) /HPF Ur Epithelial Cells /HPF Urine Bacteria (0-FEW/HPF) /HPF Hyaline Casts /LPF Fine Granular Casts (0/LPF) /LPF Med Orders - Current: Current Medications Aspirin (Halfprin) 81 mg PO DAILY [facility] Last Admin: 01/09/19 08:12 Dose: 81 mg Clopidogrel Bisulfate (Plavix) 75 mg PO DAILY [facility] Last Admin: 01/09/19 08:13 Dose: 75 mg Heparin Sodium (Porcine) (Heparin Sodium) 5,000 units SUBCUT Q12HR [facility] Last Admin: 01/09/19 08:14 Dose: 5,000 units Lactulose (Cephulac) 20 gm PO BID PRN PRN Reason: Constipation Lisinopril (Prinivil) 2.5 mg PO DAILY [facility] Last Admin: 01/09/19 08:18 Dose: 2.5 mg Rosuvastatin Calcium (Crestor) 10 mg PO BEDTIME [facility] Last Admin: 01/08/19 20:38 Dose: 10 mg Senna/Docusate Sodium (Senna Plus) 1 tab PO BID [facility] Last Admin: 01/09/19 08:14 Dose: 1 tab Sodium Chloride (Saline Flush) 10 ml FLUSH ASDIRECTED PRN PRN Reason: Keep Vein Open Discontinued Medications Ceftriaxone Sodium 2 gm/ (Sodium Chloride) 100 mls @ 200 mls/hr IV ONETIME ONE Stop: 01/08/19 13:13 Last Infusion: 01/08/19 14:58 Dose: Infused Sodium Chloride (Saline Flush) 10 ml FLUSH ASDIRECTED PRN PRN Reason: Keep Vein Open Last Admin: 01/08/19 20:40 Dose: 10 ml - Exam General: Reports: Alert, Oriented Lungs: Reports: Clear to Auscultation, Normal Respiratory Effort Cardiovascular: Reports: Regular Rate, Regular Rhythm GI/Abdominal Exam: Normal Bowel Sounds, Soft, Non-Tender, No Distention Extremities: Normal Inspection Skin: Reports: Warm, Dry, Intact Neurological: Reports: No New Focal Deficit
== END 2019-01-09 12:15 | disposition home or self-care (01) ==
LOC: DL.ED 11:28 → UNDOADMOB 13:01 → DL.MS 13:01
PROVIDERS: ADMIT Hospitalist; ATTEND Internal Medicine
DX: R55 Syncope and collapse (principal); I10 Essential (primary) hypertension; I48.91 Unspecified atrial fibrillation; E78.00 Pure hypercholesterolemia, unspecified; Z79.82 Long term (current) use of aspirin; Z79.02 Long term (current) use of antithrombotics/antiplatelets; Z79.899 Other long term (current) drug therapy
CPT/HCPCS: 36415; 70450; 71045; 80053; 81001; 82550; 82962; 83605; 83880; 84484; 85025; 85610; 85730; 87040; 87086; 93005; 96365; 96372; 97161; 99285; A9270; G0378; J0696; J1644; J7050

== ENCOUNTER 2019-01-19 09:11 | Emergency (ER) | payer MEDICARE, OTHER ==
[2019-01-19] MEDS ORDERED: Sodium Chloride 0.9% 10 ML Syringe FLUSH PRN (09:32)
[2019-01-19 10:15] LABS: ANION GAP 15.1; CHLORIDE,CL 102 mmol/L (101-111); SODIUM,NA 138 mmol/L (135-145)
[2019-01-19] MEDS ORDERED: cefTRIAXone 2 GM in Sodium Chloride 0.9% 100 ML IV ONE (10:15)
[2019-01-19] MEDS ORDERED: cefTRIAXone 1 GM Vial ONE (10:26)
--- NOTE | 2019-01-19 10:29 | EDM.PDOC ---
Scribed by America Murillo 01/19/19 0953 for Xavi Rosen MD ED HPI GENERAL MEDICAL PROBLEM - General Chief Complaint: General Stated Complaint: FEELING DIZZY- NEW MEDICATION Time Seen by Provider: 01/19/19 09:26 Source of Information: Reports: Patient, RN, RN Notes Reviewed History Limitations: Reports: No Limitations - History of Present Illness INITIAL COMMENTS - FREE TEXT/NARRATIVE: Patient presents to ER by POV with complaint of vague symptoms of not feeling well with lightheadedness, unsteady on her feet, feeling intermittently hot and flushed. She does not think that she is having fevers. She does admit to intermittent chills, She was admitted here on 01/08/19 to observation for syncope. No particular cause for syncope was found. She was treated for UTI. She has been off antibiotics for several days. She denies any dysuria. She denies any recurrence of syncope or near-syncope. Reports good appetite. She states that she has an appointment to see Dr. Clement tomorrow, and have a history professor in 2 days. Onset: Gradual Duration: Constant Location: Reports: Generalized Quality: Reports: Other (denies pain) Severity: Moderate Improves with: Reports: None Worsens with: Reports: Other (activity) Associated Symptoms: Reports: No Other Symptoms - Related Data Allergies Allergy/AdvReac Type Severity Reaction Status Date / Time No Known Allergies Allergy Verified 01/19/19 09:20 Home Meds: Home Meds Clopidogrel [Plavix] 75 mg PO DAILY #30 tablet 01/15/18 [Rx] Rosuvastatin [Crestor] 10 mg PO BEDTIME 01/17/18 [History] Sennosides/Docusate Sodium [Senna-S] 1 tab PO BID 01/17/18 [History] Lactulose [Cephulac] 20 gm PO BID PRN #20 cup 01/21/18 [Rx] Lisinopril [Prinivil] 2.5 mg PO DAILY #30 tablet 01/21/18 [Rx] Aspirin [Halfprin] 81 mg PO DAILY 01/08/19 [History] Ciprofloxacin/Ciprofloxa HCl [Ciprofloxacin ER] 500 mg PO DAILY #3 tbmp.24hr 10/29 [Rx] Past Medical History HEENT History: Reports: Cataract, Impaired Vision, Other (See Below) Other HEENT History: floaters- no longer) Cardiovascular History: Reports: Afib, High Cholesterol, Hypertension, Syncope Other Cardiovascular History: sycope? 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 Psychiatric History: Reports: None, Anxiety Endocrine/Metabolic History: Reports: None Hematologic History: Reports: None Immunologic History: Reports: None Oncologic (Cancer) History: Reports: None Dermatologic History: Reports: None - Infectious Disease History Infectious Disease History: Reports: None - Past Surgical History Head Surgeries/Procedures: Reports: None HEENT Surgical History: Reports: Cataract Surgery Cardiovascular Surgical History: Reports: None Respiratory Surgical History: Reports: None GI Surgical History: Reports: Appendectomy, Colonoscopy Neurological Surgical History: Reports: None Musculoskeletal Surgical History: Reports: Other (See Below) Other Musculoskeletal Surgeries/Procedures:: left arm Fx Social & Family History - Family History Family Medical History: Noncontributory Neurological: Reports: Alzheimers Disease - Caffeine Use Caffeine Use: Reports: Coffee - Living Situation & Occupation Living situation: Reports: , Alone Occupation: Retired ED ROS GENERAL - Review of Systems Review Of Systems: ROS reveals no pertinent complaints other than HPI. ED EXAM, GENERAL - Physical Exam Exam: See Below Exam Limited By: No Limitations General Appearance: Alert, No Apparent Distress, Other (Frail, elderly well appearing female.) Eye Exam: Bilateral Eye: EOMI, Normal Inspection, PERRL Ears: Normal External Exam, Hearing Grossly Normal Nose: Normal Inspection, Normal Mucosa, No Blood Throat/Mouth: Normal Inspection, Normal Lips, Normal Teeth, Normal Gums, Normal Oropharynx, Normal Voice, No Airway Compromise Head: Atraumatic, Normocephalic Neck: Normal Inspection, Supple, Non-Tender, Full Range of Motion Respiratory/Chest: No Respiratory Distress, Lungs Clear, Normal Breath Sounds, No Accessory Muscle Use, Chest Non-Tender Cardiovascular: Regular Rate, Rhythm, No Edema GI/Abdominal: Normal Bowel Sounds, Soft, Non-Tender, No Organomegaly, No Distention, No Abnormal Bruit, No Mass Back Exam: Normal Inspection Extremities: Normal Inspection, Normal Range of Motion, Non-Tender, Normal Capillary Refill, No Pedal Edema Neurological: Alert, Oriented, CN II-XII Intact, Normal Cognition, Normal Gait, No Motor/Sensory Deficits Psychiatric: Normal Affect, Normal Mood Skin Exam: Warm, Dry, Intact, Normal Color, No Rash EKG INTERPRETATION EKG Date: 01/19/19 Time: 09:46 Rhythm: Other (sinus rhythm) Rate (Beats/Min): 77 [place]: Normal P-Wave: Present QRS: Other (early precordial R/S transition) ST-T: Normal QT: Normal Comparison: No Change Course - Orders/Labs/Meds Orders: Active Orders 24 hr Category Date Time Status EKG 12 Lead [EKG Documentation Completion] [RC] STAT Care 01/19/19 09:32 Active Orthostatic Vital Signs [RC] ASDIRECTED Care 01/19/19 09:34 Active Peripheral IV Care [RC] . DIRECTED Care 01/19/19 09:34 Active Chest 1V Frontal [CR] Stat Exams 01/19/19 09:32 Taken CULTURE URINE [RM] Stat Lab 01/19/19 09:36 Received Sodium Chloride 0.9% [Saline Flush] Med 01/19/19 09:32 Active 10 ml FLUSH ASDIRECTED PRN cefTRIAXone [Rocephin] 2 gm Med 01/19/19 10:15 Active Sodium Chloride 0.9% [Normal Saline] 100 ml IV ONETIME Peripheral IV Insertion Adult [OM.PC] Stat Oth 01/19/19 09:32 Ordered Medication Orders Ceftriaxone Sodium 2 gm/ (Sodium Chloride) 100 mls @ 200 mls/hr IV ONETIME ONE Stop: 01/19/19 10:44 Sodium Chloride (Saline Flush) 10 ml FLUSH ASDIRECTED PRN PRN Reason: Keep Vein Open Last Admin: 01/19/19 10:10 Dose: 10 ml Labs: Laboratory Tests 01/19/19 01/19/19 01/19/19 Range/Units 09:36 09:45 09:45 WBC 5.6 (5.0-10.0) 10^3/uL RBC 4.21 (4.2-5.4) 10^6/uL Hgb 13.1 (12.0-16.0) g/dL Hct 40.5 (37.0-47.0) % MCV 96.2 (80-100) fL MCH 31.1 (27.0-34.0) pg MCHC 32.3 L (33.0-35.0) g/dL Plt Count 203 (150-450) 10^3/uL Neut % (Auto) 55.2 (42.2-75.2) % Lymph % (Auto) 35.3 (20.5-50.1) % [place] % (Auto) 7.7 (2-8) % Eos % (Auto) 1.3 (1.0-3.0) % Baso % (Auto) 0.5 (0.0-1.0) % Sodium 138 (135-145) mmol/L Potassium 4.1 (3.6-5.0) mmol/L Chloride 102 (101-111) mmol/L Carbon Dioxide 25.0 (21.0-31.0) mmol/L Anion Gap 15.1 BUN 23 H (7-18) mg/dL Creatinine 1.0 (0.6-1.3) mg/dL Est Cr Clr Drug Dosing TNP Estimated GFR (MDRD) 52 BUN/Creatinine Ratio 23.00 Glucose 165 H (74-105) mg/dL Calcium 9.3 (8.4-10.2) mg/dl Total Bilirubin 0.9 (0.2-1.0) mg/dL AST 28 (10-42) IU/L ALT 22 (10-60) IU/L Alkaline Phosphatase 60 (42-121) IU/L Troponin I < 0.02 (0.00-0.02) ng/ml Total Protein 6.6 L (6.7-8.2) g/dl Albumin 3.9 (3.2-5.5) g/dl Globulin 2.7 Albumin/Globulin Ratio 1.44 Urine Color Yellow (YELLOW) Urine Appearance Slightly cloudy (CLEAR) Urine pH 5.5 (5.0-9.0) Ur Specific [place] <= 1.005 (1.005-1.030) Urine Protein Negative (NEGATIVE) Urine Glucose (UA) Negative (NEGATIVE) Urine Ketones Negative (NEGATIVE) Urine Occult Blood Trace-lysed H (NEGATIVE) Urine Nitrite Negative (NEGATIVE) Urine Bilirubin Negative (NEGATIVE) Urine Urobilinogen 0.2 (0.2-1.0) mg/dL Ur Leukocyte Esterase Large H (NEGATIVE) Urine RBC 5-10 H /HPF Urine WBC 75-100 H (0-5/HPF) /HPF Ur Epithelial Cells Few /HPF Urine Bacteria Many H (0-FEW/HPF) /HPF Meds: Medications Generic Name Dose Route Start Last Admin Trade Name Freq PRN Reason Stop Dose Admin Ceftriaxone Sodium 2 gm/ 100 mls @ 200 mls/hr 01/19/19 10:15 Sodium Chloride IV 01/19/19 10:44 ONETIME ONE Sodium Chloride 10 ml 01/19/19 09:32 01/19/19 10:10 Saline Flush FLUSH 10 ml ASDIRECTED PRN Administration Keep Vein Open - Radiology Interpretation Free Text/Narrative:: CXR: history professor at left upper chest, no acute process, see Rad. report. - Re-Assessments/Exams Free Text/Narrative Re-Assessment/Exam: 01/19/19 10:24 Pt with UA consistent with UTI. Exam and diagnostic work up, in clinic CBC, blood chemistries, cardiac eval. and chest x-ray are all benign and not likely to be contributing to pt's vague symptoms of feels unwell with chills. Plan to treat her with Rocephin 2g IV in the ER, then d/c her home with an Rx for Bactrim DS empirically until the urine culture is returned. Pt will f/u in clinic tomorrow with Dr. Clement. Departure - Departure Time of Disposition: 11:00 Disposition: Home, Self-Care 01 Condition: Good Clinical Impression: UTI (urinary tract infection) Qualifiers: Urinary tract infection type: site unspecified Hematuria presence: without hematuria Qualified Code(s): N39.0 - Urinary tract infection, site not specified - Discharge Information *PRESCRIPTION DRUG MONITORING PROGRAM REVIEWED*: Not Applicable *COPY OF PRESCRIPTION DRUG MONITORING REPORT IN PATIENT CANDIDO: Not Applicable Instructions: Urinary Tract Infection, Adult, [id number] Forms: ED Department Discharge Additional Instructions: Rx: Bactrim DS Drink plenty of water. Follow up with Dr. Clement as scheduled. - My Orders Last 24 Hours: My Active Orders 01/19/19 09:32 EKG 12 Lead [EKG Documentation Completion] [RC] STAT Chest 1V Frontal [CR] Stat Sodium Chloride 0.9% [Saline Flush] 10 ml FLUSH ASDIRECTED PRN Peripheral IV Insertion Adult [OM.PC] Stat 01/19/19 09:34 Orthostatic Vital Signs [RC] ASDIRECTED Peripheral IV Care [RC] . DIRECTED 01/19/19 09:36 CULTURE URINE [RM] Stat 01/19/19 10:15 cefTRIAXone [Rocephin] 2 gm Sodium Chloride 0.9% [Normal Saline] 100 ml IV ONETIME - Assessment/Plan Last 24 Hours: My Active Orders 01/19/19 09:32 EKG 12 Lead [EKG Documentation Completion] [RC] STAT Chest 1V Frontal [CR] Stat Sodium Chloride 0.9% [Saline Flush] 10 ml FLUSH ASDIRECTED PRN Peripheral IV Insertion Adult [OM.PC] Stat 01/19/19 09:34 Orthostatic Vital Signs [RC] ASDIRECTED Peripheral IV Care [RC] . DIRECTED 01/19/19 09:36 CULTURE URINE [RM] Stat 01/19/19 10:15 cefTRIAXone [Rocephin] 2 gm Sodium Chloride 0.9% [Normal Saline] 100 ml IV ONETIME I have read and agree with the documentation that has been completed regarding this visit. By signing this record, I attest that the documentation was completed in my physical presence and is an accurate record of the encounter.
[2019-01-19 10:38] VITALS: BP 151/47
== END 2019-01-19 11:11 | disposition home or self-care (01) ==
LOC: DL.ED 09:11
DX: N39.0 Urinary tract infection, site not specified (principal); I48.91 Unspecified atrial fibrillation; E78.00 Pure hypercholesterolemia, unspecified; I10 Essential (primary) hypertension; F41.9 Anxiety disorder, unspecified; Z79.01 Long term (current) use of anticoagulants; Z79.899 Other long term (current) drug therapy; Z79.82 Long term (current) use of aspirin
CPT/HCPCS: 36415; 71045; 80053; 81001; 84484; 85025; 87086; 93005; 96365; 99284; J0696; J7050

== ENCOUNTER 2019-02-01 11:30 | Emergency (ER) | payer MEDICARE, OTHER ==
[2019-02-01] MEDS ORDERED: Ondansetron 4 MG/2 ML SDV ONE (11:35)
[2019-02-01] MEDS: Ondansetron 4 MG/2 ML SDV IV ONE (11:38)
[2019-02-01 12:06] VITALS: BP 148/62
[2019-02-01 12:14] LABS: ANION GAP 13.8; CHLORIDE,CL 105 mmol/L (101-111); SODIUM,NA 137 mmol/L (135-145)
--- NOTE | 2019-02-01 13:11 | EDM.PDOC ---
ED HPI GENERAL MEDICAL PROBLEM - General Chief Complaint: Trauma Stated Complaint: TRAUMA-AMBULANCE Time Seen by Provider: 02/01/19 11:50 Source of Information: Reports: Family History Limitations: Reports: No Limitations - History of Present Illness INITIAL COMMENTS - FREE TEXT/NARRATIVE: Presents by EMS; Fall from standing position back hitting back of head on the hardwood floor; no LOC. + MAURICE & vomiting immediately after fall. Denies neck pain. On Plavix and aspirin for previous stroke. No CAD Daughters with her and heard her make a grunt noise; stiff extremities then some mild daya upper extremity shaking. She has had 2 other previous episodes of questionable syncope and involving stiffing of the extremities but not true clonic/tonic seizure. Two daughters are present and granddaughter as well. They all live within close contact with Jeanna. Moderate goose egg hematoma on the occipital region. Mild lethargy; but awakens and able to answer all my questions. No other injury or complains. Denies SOB, CP, abd pain or extremity pain. + for headache and Nausea Onset: Today Onset Date: 02/01/19 Onset Time: 11:00 Location: Reports: Head Quality: Reports: Throbbing Associated Symptoms: Reports: Nausea/Vomiting - Related Data Allergies Allergy/AdvReac Type Severity Reaction Status Date / Time No Known Allergies Allergy Verified 02/01/19 11:39 Home Meds: Home Meds Clopidogrel [Plavix] 75 mg PO DAILY #30 tablet 01/15/18 [Rx] Rosuvastatin [Crestor] 10 mg PO BEDTIME 01/17/18 [History] Sennosides/Docusate Sodium [Senna-S] 1 tab PO BID 01/17/18 [History] Lactulose [Cephulac] 20 gm PO BID PRN #20 cup 01/21/18 [Rx] Lisinopril [Prinivil] 2.5 mg PO DAILY #30 tablet 01/21/18 [Rx] Aspirin [Halfprin] 81 mg PO DAILY 01/08/19 [History] Past Medical History HEENT History: Reports: Cataract, Impaired Vision, Other (See Below) Other HEENT History: floaters- no longer) Cardiovascular History: Reports: Afib, High Cholesterol, Hypertension, Syncope Other Cardiovascular History: sycope? 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 Psychiatric History: Reports: None, Anxiety Endocrine/Metabolic History: Reports: None Hematologic History: Reports: None Immunologic History: Reports: None Oncologic (Cancer) History: Reports: None Dermatologic History: Reports: None - Infectious Disease History Infectious Disease History: Reports: None - Past Surgical History Head Surgeries/Procedures: Reports: None HEENT Surgical History: Reports: Cataract Surgery Cardiovascular Surgical History: Reports: None Respiratory Surgical History: Reports: None GI Surgical History: Reports: Appendectomy, Colonoscopy Neurological Surgical History: Reports: None Musculoskeletal Surgical History: Reports: Other (See Below) Other Musculoskeletal Surgeries/Procedures:: left arm Fx Social & Family History - Family History Family Medical History: Noncontributory Neurological: Reports: Alzheimers Disease - Tobacco Use Smoking Status *Q: Never Smoker - Caffeine Use Caffeine Use: Reports: Coffee - Recreational Drug Use Recreational Drug Use: No - Living Situation & Occupation Living situation: Reports: , Alone Occupation: Retired Review of Systems - Review of Systems Review Of Systems: ROS reveals no pertinent complaints other than HPI. Constitutional: Reports: Weakness, Other (Feels very fatigued after the fall and questionable seizure. ) Neurological: Reports: Headache ED EXAM, GENERAL - Physical Exam Exam: See Below Exam Limited By: No Limitations General Appearance: Alert (Falls asleep easily; but awakens easily and answers questions with GCS 15 and NIH score 0), WD/WN Eye Exam: Bilateral Eye: EOMI, PERRL Ears: Normal External Exam, Normal Canal, Hearing Grossly Normal, Normal TMs Nose: Normal Inspection, Normal Mucosa, No Blood Throat/Mouth: Normal Inspection, Other (small lip bit; not bleeding; just bruised) Neck: Normal Inspection, Supple, Non-Tender, Full Range of Motion, Other (No need for neck CT with normal ROM without pain and no pain with palpation. ) Respiratory/Chest: No Respiratory Distress, Lungs Clear, Normal Breath Sounds Cardiovascular: Normal Peripheral Pulses, Regular Rate, Rhythm, No Edema, No Gallop, No Murmur, No Rub Peripheral Pulses: 4+: Radial (L), Radial (R), Dorsalis Pedis (L), Dorsalis Pedis (R) GI/Abdominal: Normal Bowel Sounds, Soft, Non-Tender, No Organomegaly, No Distention Back Exam: Normal Inspection, Full Range of Motion Extremities: Normal Inspection, Normal Range of Motion, Non-Tender, No Pedal Edema, Normal Capillary Refill Neurological: Alert, Oriented, CN II-XII Intact, Normal Cognition, Normal Gait, Normal Reflexes, No Motor/Sensory Deficits Psychiatric: Normal Affect, Normal Mood Skin Exam: Warm, Dry, Intact, Normal Color, No Rash EKG INTERPRETATION EKG Date: 02/01/19 Rhythm: NSR ST-T: Other (No concerning ST elevation) Course - Vital Signs Text/Narrative:: CT head and given zofran for nausea. CT head negative for intracranial hemorrhage. Dr. 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 Dr. Clement concern that she could be having seizures and needs a neurology consult as well as observation due to occipital hit on plavix and aspirin. CBC, CMP, troponin negative. Falls asleep easily; but awakens easily and answers questions with GCS 15 and NIH score 0 Last Recorded V/S: Last Vital Signs Temp 36.2 C 02/01/19 12:05 Pulse 76 02/01/19 12:05 Resp 17 02/01/19 12:05 BP 148/62 H 02/01/19 12:05 Pulse Ox 96 02/01/19 12:05 - Orders/Labs/Meds Orders: Active Orders 24 hr Category Date Time Status EKG 12 Lead [EKG Documentation Completion] [RC] STAT Care 02/01/19 11:55 Active Head wo Cont [CT] Urgent Exams 02/01/19 11:39 Taken Labs: Laboratory Tests 02/01/19 02/01/19 Range/Units 11:37 11:37 WBC 11.3 H (5.0-10.0) 10^3/uL RBC 4.54 (4.2-5.4) 10^6/uL Hgb 14.0 (12.0-16.0) g/dL Hct 43.2 (37.0-47.0) % MCV 95.2 (80-100) fL MCH 30.8 (27.0-34.0) pg MCHC 32.4 L (33.0-35.0) g/dL Plt Count 218 (150-450) 10^3/uL Neut % (Auto) 48.8 (42.2-75.2) % Lymph % (Auto) 42.7 (20.5-50.1) % [place] % (Auto) 6.8 (2-8) % Eos % (Auto) 1.4 (1.0-3.0) % Baso % (Auto) 0.3 (0.0-1.0) % Sodium 137 (135-145) mmol/L Potassium 3.8 (3.6-5.0) mmol/L Chloride 105 (101-111) mmol/L Carbon Dioxide 22.0 (21.0-31.0) mmol/L Anion Gap 13.8 BUN 27 H (7-18) mg/dL Creatinine 0.9 (0.6-1.3) mg/dL Est Cr Clr Drug Dosing 34.83 mL/min Estimated GFR (MDRD) 59 BUN/Creatinine Ratio 30.00 Glucose 139 H (74-105) mg/dL Calcium 9.4 (8.4-10.2) mg/dl Total Bilirubin 0.7 (0.2-1.0) mg/dL AST 29 (10-42) IU/L ALT 21 (10-60) IU/L Alkaline Phosphatase 61 (42-121) IU/L Troponin I < 0.02 (0.00-0.02) ng/ml Total Protein 7.1 (6.7-8.2) g/dl Albumin 4.1 (3.2-5.5) g/dl Globulin 3.0 Albumin/Globulin Ratio 1.37 Meds: Medications Discontinued Medications Generic Name Dose Route Start Last Admin Trade Name Freq PRN Reason Stop Dose Admin Ondansetron HCl 4 mg 02/01/19 11:37 02/01/19 11:38 Zofran IV 02/01/19 11:38 4 mg ONETIME ONE Administration Ondansetron HCl Confirm 02/01/19 11:35 02/01/19 13:40 Zofran Administered 02/01/19 11:36 Not Given Dose 4 mg .ROUTE .STK-MED ONE Ondansetron HCl 4 mg 02/01/19 13:34 02/01/19 13:40 Zofran IV 02/01/19 13:35 4 mg ONETIME ONE Administration - Re-Assessments/Exams Free Text/Narrative Re-Assessment/Exam: 02/01/19 20:31 Reevaluated and continues to have a mild MAURICE; nausea improved. Still a bit sleeping but awakens easily and answers questions with GCS 15 and NIH score 0, NICOLE Transfer to [facility] via EMS for in patient observation of CHI while on plavix / aspirin. and monitor for seizure with neurology consult 02/01/19 20:38 Departure - Departure Time of Disposition: 13:54 Disposition: DC/Tfer to Hospice - Home 50 Condition: Fair Clinical Impression: Fall from standing, Closed head injury with concussion, Hematoma of occipital surface of head - Discharge Information *PRESCRIPTION DRUG MONITORING PROGRAM REVIEWED*: Not Applicable *COPY OF PRESCRIPTION DRUG MONITORING REPORT IN PATIENT CANDIDO: Not Applicable Instructions: Head Injury, Adult Referrals: PCP,None [Primary Care Provider] - Forms: ED Department Discharge - My Orders Last 24 Hours: My Active Orders 02/01/19 11:39 Head wo Cont [CT] Urgent 02/01/19 11:55 EKG 12 Lead [EKG Documentation Completion] [RC] STAT - Assessment/Plan Last 24 Hours: My Active Orders 02/01/19 11:39 Head wo Cont [CT] Urgent 02/01/19 11:55 EKG 12 Lead [EKG Documentation Completion] [RC] STAT
[2019-02-01] MEDS ORDERED: Ondansetron 4 MG/2 ML SDV IV ONE (13:34)
== END 2019-02-01 13:43 | disposition hospice, home (50) ==
LOC: DL.ED 11:30
DX: S06.0X0A Concussion without loss of consciousness, initial encounter (principal); S00.03XA Contusion of scalp, initial encounter; I10 Essential (primary) hypertension; I48.91 Unspecified atrial fibrillation; Z79.82 Long term (current) use of aspirin; Z79.899 Other long term (current) drug therapy; Z86.73 Personal history of transient ischemic attack (TIA), and cerebral infarction without residual deficits; Z98.49 Cataract extraction status, unspecified eye; Z90.49 Acquired absence of other specified parts of digestive tract; W01.198A Fall on same level from slipping, tripping and stumbling with subsequent striking against other object, initial encounter
CPT/HCPCS: 36415; 70450; 80053; 84484; 85025; 93005; 96374; 96376; 99285; J2405